=== PATIENT | female | born 1955 | race Caucasian/White ===

== ENCOUNTER 2024-03-09 21:21 | Inpatient (IN) | payer OTHER, SELFPAY ==
[2024-03-09] VITALS (10 sets, daily range): BP systolic 103–146; BP diastolic 71–91; BMI 16.9; BMI 16.3
[2024-03-09 14:39] LABS: % Basophils 0.5 % (0-2); % Eosinophils 0.7 % (0-6); % Immature Granulocytes 0.3 % (0-0.5); % Monocytes 6.6 % (1.7-9.3); % Neutrophils 65.9 % (42.2-75.2); Absolute Basophils 0.1 10^3/uL (0-0.2); Absolute Eosinophils 0.1 10^3/uL (0-0.7); Absolute Lymphocytes 2.4 10^3/uL (1.2-3.4); Absolute Monocytes 0.6 10^3/uL (0.1-0.6); Hematocrit 29.3 % (37.0-47.0); Hemoglobin 10.2 g/dL (12.0-16.0); Mean Corp Hgb Conc. 34.8 g/dL (33.0-37.0); Mean Corpuscular Hgb 31.5 pg (27.0-31.0); Mean Corpuscular Volume 90.4 fL (81.0-99.0); Mean Platelet Volume 9.3 fL (7.4-10.4); Nucleated Red Blood Cells % 0 %; Platelet Count 359 10^3/uL (130-400); Red Blood Cell Count 3.24 10^6/uL (4.20-5.40); Red Cell Dist. Width 17.1 % (11.5-14.5); White Blood Cell Count 9.2 10^3/uL (4.8-10.8)
[2024-03-09 14:47] LABS: ALT (SGPT) 10 U/L (0-35); AST (SGOT) 40 U/L (14-36); Albumin 3.7 g/dl (3.5-5.0); Alkaline Phosphatase 67 U/L (38-126); Blood Urea Nitrogen 15 mg/dl (7-17); Calcium 8.9 mg/dl (8.4-10.2); Carbon Dioxide 29 mmol/L (22-30); Chloride 95 mmol/L (98-107); Glucose 90 mg/dl (70-99); Lipase 94 U/L (23-300); Potassium 2.9 mmol/L (3.5-5.1); Sodium 137 mmol/L (135-145); Total Bilirubin 0.8 mg/dl (0.2-1.3); Total Protein 6.4 g/dl (6.3-8.2); eGFR > 60.00
[2024-03-09 14:59] LABS: Troponin I < 0.012 ng/ml
[2024-03-09 15:25] LABS: TSH 0.53 uIU/ml (0.47-4.68)
--- NOTE | 2024-03-09 17:01 | ED.GENMED ---
History of Present Illness
General
Chief Complaint: Chest Pain
Source: patient
Time Seen by Provider: 03/09/24 16:38
History of Present Illness
History of Present Illness:
68yoF with a history of hypertension and remote history of cervical cancer at the age of 17 presenting with her daughter for evaluation of generalized weakness. Patient reports a decline in health over the past 10 months or so. She is having
decreased appetite, nausea, and dry heaving. She is unable to tolerate PO intake due to her symptoms and she has lost about 18 pounds over the past 4-6 weeks. She reports having palpitations and feeling like her heart is racing with minimal
activity. She also is having burning central chest pain intermittently which is associated with paresthesias in her bilateral hands/feet. Additionally, she has passed over several times with the last episode being yesterday. She reportedly has not
urinated in the past 3 days. She has not had any medical care in at least a year. She is not currently on medications. She was previously on medication for her blood pressure which she stopped taking recently due to vomiting.
Past History
Past History
ED Past Medical History: None and Other (Kidney stone, hypertension, depression)
ED Past Surgical History: None
Social History
Tobacco: Former smoker
Alcohol: Occasional
Living: with family
Family History
Family History: Negative Diabetes, Hypertension or CAD
Phy Exam
General Physical Exam
General Presentation: no apparent distress
General Skin: warm and dry
General Habitus: cachetic, failure to thrive and frail
General Mental: alert
ENT Exam
ENT Exam: normocephalic
Cardiovascular Exam
Cardiovascular Exam: regular rate/rhythm
Pulmonary Exam
Pulmonary Exam: lungs clear, no respiratory distress, no crackles and no wheezing
Gastrointestinal Exam
Gastrointestinal Exam: non tender, soft and non distended
Say Coma Scale
Eye Opening: Spontaneous
Verbal Response: Oriented
Motor Response: Obeys Commands
GCS Total Score: 15
Skin Exam
Skin Exam: warm/dry and pallor
Psychiatric Exam
Psychiatric Exam: normal mood/affect
Scores
Heart Score for Chest Pain Patients
STEMI patient?: No
History: Slightly or Non-Suspicious
ECG: Nonspecific Repolarization
Age: >/= 65 years
Risk Factors: 1 or 2 Risk Factors
Troponin: </= Normal Limit
Heart Score for Chest Pain Patients: 4
Heart Score Risk: 20.3% MACE over next 6 weeks
Course
Orders/Labs/Results
Orders:
Orders
03/09/24 14:07
Electrocardiogram (*1) Urgent
Reason for Study: Chest Pain
EKG- Treatment ONCE
03/09/24 14:26
Complete Blood Count/With Diff Urgent
Comprehensive Metabolic Panel Urgent
Lipase Urgent
Magnesium Urgent
TSH Urgent
Troponin I Urgent
03/09/24 16:39
Add On- LAB Urgent
Tests Added?: magnesium
Potassium Chloride [KCl] 40 meq PO NOW STA
03/09/24 16:59
CT Chest/abd/pel W Iv Cont Urgent
Comment:
Reason For Exam: Chest pain, weight loss
0.9% Sodium Chloride 500 ml [Nss] 500 ml IV BOLUS
Ondansetron Injectable [Zofran] 4 mg IV NOW STA
03/09/24 17:00
CT Head W/o Iv Contrast Urgent
Comment:
Reason For Exam: AMS
03/09/24 17:33
Potassium Chloride [KCl] 20 meq 0.9% Sodium Chloride 150 ml [Nss] 150 ml IV NOW
03/09/24 17:42
Magnesium Sulfate 2 Gram/50 ml [Magnesium Sulfate] 2 gram in 50 ml IV NOW
03/09/24 21:07
Admit/Transfer Patient As Directed
Co-Sign Provider:
Level of Care: Inpatient admission
Assign to:: Telemetry
Physician / Group: praneeth
Diagnosis: hypomag, hypokalemia
Reason for Telemetry: Arrhythmia
Date to Stop Telemetry: 03/12/24
Time to Stop Telemetry: 11:00
Reason for Hospitalization: hypomag, hypokalemia
Expected length of stay greater than two midnights?: Yes
ELOS- Estimated Length of Stay in days: 2
I certify the patient meets the requirements for IP care: Yes
Code Status As Directed
Resuscitation Status: Full Code
PRN Pain Medication Management As Directed
May give lesser potent ordered pain med per pt: Yes
preference::
Protocol:: Medication orders for pain may be administered in a
manner that supports deferring to patient preference
when the pt is:
- Requesting an ordered lesser potent pain medication.
Least to most potent pain medications are defined
as: acetaminophen < NSAID < tramadol < opioids
(morphine, oxycodone, hydromorphone).
- Requesting a lesser dose of the same medication IF
ORDERED.
- Requesting a less intrusive route of administration
if both routes are prescribed by the provider (PO <
IV).
03/12/24 11:00
DC Protocol for Telemetry ONCE
Abnormal Lab Results
03/09/24
14:26
RBC 3.24 L 10^6/uL
(4.20-5.40)
Hgb 10.2 L g/dL
(12.0-16.0)
Hct 29.3 L %
(37.0-47.0)
MCH 31.5 H pg
(27.0-31.0)
RDW 17.1 H %
(11.5-14.5)
Potassium 2.9 L mmol/L
(3.5-5.1)
Chloride 95 L mmol/L
(98-107)
Magnesium 1.1 L mg/dl
(1.6-2.3)
AST 40 H U/L
(14-36)
03/09/24 14:26
03/09/24 14:26
Vital Signs
Initial and Last Documented VS:
Initial Vital Signs
Temp Pulse Resp BP Pulse Ox
98.8 F 102 16 111/75 100
03/09/24 14:12 03/09/24 14:12 03/09/24 14:12 03/09/24 14:12 03/09/24 14:12
Last Documented Vital Signs
Temp Pulse Resp BP Pulse Ox
98.8 F 92 24 137/86 97
03/09/24 14:12 03/09/24 20:00 03/09/24 20:00 03/09/24 20:00 03/09/24 20:00
MDM/Problems Addressed
Differential Diagnosis Includes:
68yoF here with multiple complaints including generalized weakness, n/v, unintentional weight loss. Also c/o chest pain and syncope. She reportedly has not urinated in 3 days. VSS. She is cachectic and ill appearing on exam. Differential diagnosis
includes but is not limited to: failure to thrive, malignancy, dehydration, electrolyte abnormality, KAYLEY
Initial ED plan: Cardiac labs, TSH, and EKG obtained in triage. Potassium 2.9. Hemoglobin 10.2. EKG shows NSR with nonspecific ST/T wave changes although troponin is normal. Will obtain CT CAP to evaluate for possible malignancy. CT head also
ordered as daughter states she is confused at times. IV potassium, fluid bolus, and Zofran ordered for symptoms.
*EKG
Interpreted by ED Provider?: Yes
EKG Intrepretation Date: 03/09/24
Heart Rate: 100
Rate: normal
Rhythm: sinus
[place]: normal axis
Interval: normal interval
QRS Pattern: normal QRS
Ischemia: non-specific ST changes
*Critical Care Note
Total Time (30-74mins, 75-104mins- exclusive of procedures): Not Applicable
Update Note
Update Note:
Magnesium also low at 1.1. and IV magnesium replacement ordered. Imaging negative for acute findings. Given degree of weakness and frailty, will admit for further evaluation and management.
ED Attending Note
-
Portions of this chart may have been created with voice recognition software.� Occasional wrong word or��sound alike� substitutions may have occurred due to the inherent limitations of voice recognition software.
Discharge Plan
Departure
Patient Disposition: Admit
Date of Disposition: 03/09/24
Time of Disposition: 20:24
Presentation/result/management discussed w/ accepting MD/DO: Hospitalist
Discharge Problem:
Failure to thrive in adult, Hypokalemia, Hypomagnesemia, Unintentional weight loss, Generalized weakness
Interventions
Interventions:
*Risk Screen - Suicide Last Done: 03/09/24 17:00
*General Assessment Last Done: 03/09/24 17:00
*Neglect/Abuse Screening Last Done: 03/09/24 17:00
ED- Fall Risk Assessment Last Done: 03/09/24 17:00
*ED COVID-19 Vaccine History Last Done: 03/09/24 17:00
ED- Cardiac Assessment Last Done: 03/09/24 17:00
[2024-03-09 17:19] LABS: Magnesium 1.1 mg/dl (1.6-2.3)
[2024-03-09] MEDS: ZOFRAN 4 MG IV (17:24)
[2024-03-09] MEDS: NSS 500 IV (17:51)
[2024-03-09] MEDS: KCL 160 MEQ IV (17:51)
[2024-03-09] MEDS: MAGNESIUM SULFATE 50 IV (18:36)
--- NOTE | 2024-03-09 21:20 | HPS.HSE ---
Family Physician
-
Family Physician: Sneha Ann
Chief Complaint
-
vomiting, syncope
History of Present Illness
68-year-old female past medical history of IBS, hypertension, depression, kidney stone, cervical cancer, presenting for generalized weakness. 2 months ago she started having nausea and vomiting anytime she eats solid food. She would feel
distention and discomfort in her stomach and vomited shortly later. She can tolerate liquids. She denies any blood in the vomit. She has lost significant amount of weight. She has not urinated in 3 days. Has not had a bowel movement 4 days.
She feels very weak and is having syncopal episodes. Denies shortness of breath.. She is having palpitations. Denies black stool or blood in the stool. Denies any acid reflux. Denies swallowing dysfunction.
She states that she has a history of IBS several years ago with intermittent constipation/diarrhea and had EGD which was unremarkable.
Denies any surgeries apart from gynecologic surgery
Medical History
Past Medical History
Past Medical History: Reports Other (IBS, hypertension, depression, kidney stone, cervical cancer)
Past Surgical History: Reports Gynocological
Social History
Tobacco: Non-smoker
Alcohol: None
Drug: None
Family History
Family History: Not pertinent
Allergies / Home Medications
Allergies reflects when Allergies were last updated in [employer]
Home Medications with original date entered in [employer]
Allergy/Medication List:
Allergies
Allergy/AdvReac Type Severity Reaction Status Date / Time
cefazolin sodium [From [facility]] Allergy Anaphylaxis Verified 03/09/24 14:12
morphine Allergy Swelling Verified 03/09/24 14:12
Home Medications
No Meds [No Current Medications] 03/09/24
Review of Systems
-
Constitutional: Reports No Symptoms
EENT: Reports No Symptoms
Respiratory: Reports No Symptoms
Cardiac: Reports No Symptoms
Abdomen/GI: Reports See HPI
: Reports No Symptoms
Musculoskeletal: Reports No Symptoms
Skin: Reports No Symptoms
Neurological: Reports No Symptoms
Endocrine: Reports No Symptoms
Hematologic/Lymphatic: Reports No Symptoms
Psych: Reports No Symptoms
Physical Exam
Vital Signs
Vital Signs
Temp Pulse Resp BP Pulse Ox
98.8 F 92 24 137/86 97
03/09/24 14:12 03/09/24 20:00 03/09/24 20:00 03/09/24 20:00 03/09/24 20:00
Physical Exam
General: Well Developed, Well Nourished and No Apparent Distress
HEENT: NormoCephalic, Moist mucous membranes and Atraumatic
Respiratory: Clear
Cardiac: S1/S2 and Regular Rhythm; No Murmur or Rub
GI: Soft, Non Tender, Non Distended and Normal Bowel Sounds; No Organomegaly
Rectal: Deferred by Provider
Musculoskeletal: No Clubbing, No Cyanosis and No Edema
Skin: No Rash
Neuro: Nonfocal/grossly intact
Laboratory Results
-
03/09/24 14:26
03/09/24 14:26
Laboratory Results
Total Bilirubin 0.8 mg/dl (0.2-1.3) 03/09/24 14:26
AST 40 U/L (14-36) H 03/09/24 14:26
ALT 10 U/L (0-35) 03/09/24 14:26
Alkaline Phosphatase 67 U/L (38-126) 03/09/24 14:26
Troponin I < 0.012 ng/ml 03/09/24 14:26
Lipase 94 U/L (23-300) 03/09/24 14:26
Data Reviewed
-
Lab Data: Labs Reviewed by me
Old Records: Reviewed
Impression/Plan
-
IMPRESSION:
PLAN:
# Severe hypokalemia secondary to hypomagnesemia secondary to recurrent vomiting/severe protein calorie malnutrition suspecting upper GI pathology
# Syncopal episodes/palpitations secondary to hypomagnesemia/hypokalemia
-EKG shows normal sinus rhythm
-Magnesium 1.1, potassium 2.9
-Replete magnesium and potassium
-IV fluids
-CT head negative
-CT chest abdomen pelvis negative
-GI consulted
# Anuria
-Monitor urine output with IV fluids
# Constipation due to lack of oral intake
# Anemia unknown chronicity
-Check iron studies, B12 and folate
History of IBS
Essential hypertension
Depression
Kidney stone
Cervical cancer
Full code
DVT prophylaxis�heparin
Regular diet
--- NOTE | 2024-03-09 22:13 | PTCARENOTE ---
Pt received from ED to [facility]. Pt oriented to room and call clifton.
[2024-03-09] MEDS: NSS 1000 IV (22:50)
[2024-03-09 23:42] LABS: Iron 63 ug/dl (37-170)
[2024-03-09 23:51] LABS: Percent Saturation 34 % (20-50); Total Iron Binding Capacity 182 ug/dl (265-497)
[2024-03-10] VITALS (7 sets, daily range): BP systolic 90–129; BP diastolic 52–76
[2024-03-10 05:31] LABS: Folate 3.1 ng/ml (2.76-20); Vitamin B12 694 pg/ml (239-931)
--- NOTE | 2024-03-10 07:18 | CON.GI ---
Consultation
-
Date/Time Consultation Requested: 03/09/24 22:13 pm
Date/Time Consultation Performed: 03/10/24 08.10 am
Requesting Provider: Mario Alberto Armenta MD
Performing Provider: Saba Rosario MD
Reason for Consultation: Nausea
Medical History
Chief Complaint / HPI
Chief Complaint: Generalized weakness, Nausea, Decreased appetite
History of Present Illness:
The patient is a 68 year old female with a PMH of IBS, hypertension, depression, kidney stone, cervical cancer who presented to ER on 03/09/24 complaining from generalized weakness. She reported that she was feeling well since last 10 months and
started to have vomiting episodes daily since last 2 months. She was not able to tolerate eating/drinking due feeling nauseous and vomiting. She lost about 18 pounds in last 2 months.She started to feel some palpitations and syncopal episodes. The
patient reported that she is not a person with good appetite. She was diagnosed with IBS more 20 years ago and suffered from having diarrhea for years. She reported having endoscopy and colonoscopy for that reason and results were not significant.
She is not sure but thinks she was also sought for celiac disease and the results were not significant. She denies current diarrhea since last 2 months ( She was not really eating), denies melena, last BM was on Friday with very low amounts, denies
hematemesis, reflux, abdominal pain, dysphagia, last vomiting was 2 days ago. Patient endorses feeling nauseous most of the time.
Past Medical History
Past Medical History: Other (IBS, hypertension, depression, kidney stone, cervical cancer)
Past Surgical History: Other ( Tube ligation, elbow suregery )
Social History
Tobacco: Non-Smoker
Alcohol: None
Drug: None
Living: With Family
Family History
Family History: Reviewed & Not Pertinent
Allergies / Home Medications
Allergy/AdvReac Type Severity Reaction Status Date / Time
cefazolin sodium [From [facility]] Allergy Anaphylaxis Verified 03/09/24 14:12
morphine Allergy Swelling Verified 03/09/24 14:12
�Medication �Instructions �Recorded
No Meds [No Current Medications] 03/09/24
Review of Systems
-
History Source: Patient
EENT: Reports No Symptoms
Respiratory: Reports No Symptoms
Cardiac: Reports Palpitations
Abdomen/GI: Reports Nausea
: Reports No Symptoms
Musculoskeletal: Reports Other (Generalized weakness )
Skin: Reports No Symptoms
Vital Signs
Temp Pulse Resp BP Pulse Ox
97.9 F 76 18 129/76 98
03/10/24 03:27 03/10/24 03:27 03/10/24 03:27 03/10/24 03:27 03/10/24 03:27
Physical Exam
Exam
General: Poor Appetite and Other (cachexia)
HEENT: Normocephalic and Anicteric
Respiratory: Clear
Cardiac: S1/S2 and Regular Rhythm
GI: Soft, Non Tender and Non Distended
Musculoskeletal: No Clubbing, No Cyanosis and No Edema
Skin: Warm
Neuro: Awake, Alert, Oriented and AO x 3
Results
WBC 9.2 10^3/uL (4.8-10.8) 03/09/24 14:26
Hgb 10.2 g/dL (12.0-16.0) L 03/09/24 14:26
Hct 29.3 % (37.0-47.0) L 03/09/24 14:26
MCV 90.4 fL (81.0-99.0) 03/09/24 14:26
Plt Count 359 10^3/uL (130-400) 03/09/24 14:26
Absolute Neuts (auto) 6.0 10^3/uL (1.4-6.5) 03/09/24 14:26
Sodium 137 mmol/L (135-145) 03/09/24 14:26
Potassium 2.9 mmol/L (3.5-5.1) L 03/09/24 14:
Chloride 95 mmol/L (98-107) L 03/09/24 14:
Carbon Dioxide 29 mmol/L (22-30) 03/09/24 14:26
BUN 15 mg/dl (7-17) 03/09/24 14:
Creatinine 0.6 mg/dL (0.6-1.0) 03/09/24 14:
Calcium 8.9 mg/dl (8.4-10.2) 03/09/24 14:
Total Bilirubin 0.8 mg/dl (0.2-1.3) 03/09/24 14:
AST 40 U/L (14-36) H 03/09/24 14:
ALT 10 U/L (0-35) 03/09/24 14:
Alkaline Phosphatase 67 U/L (38-126) 03/09/24 14:
Lipase 94 U/L (23-300) 03/09/24 14:
Diagnostic Image Results:
Abdominal/Pelvic CT 03/09/24
IMPRESSION:
1. No significant acute abnormality identified in the chest, abdomen or pelvis, as described above
Prior GI Procedures:
Patient reports she had endoscopy and colonoscopy about 15 years ago at [facility] and results were not significant.
EGD: No known recent endoscopy
Colonoscopy: No known recent colonoscopy
Assessment / Plan
-
Impression: The patient is a 68 year old female who has been diagnosed with IBS more than 20 years ago along with chronic diarrhea. She started to feel nauseous since last 2 months and was not able to tolerate eating/drinking due nausea. Her and CT
is not remarkable fro her current condition but low hgb level was found and it trended down from 10.2 to 8.7 today. The patient denied hematemesis or melena and abdominal pain. She underwent endoscopy and colonoscopy about 15 years ago possibly due
her chronic diarrhea and was also checked for celiac disease at that time and results were not significant. She did not have further studies or follow up for that reason. Her diarrhea stopped 2 months ago after she reduced eating due vomiting.
#Anemia likely from iron deficiency due limited oral intake versus acute bleeding
-Low hgb level was found and it trended down from 10.2 to 8.7 ( Started IV fluid Hemodilution vs acute blood loss)
-Follow up HGB levels Q12 H
-No hematemesis, no melena, no abdominal pain
-BUN 15, TIBC 182, Iron 63, Folate 3.1, vit B12 694
-Lost 18 pounds in last 2 months
#Nausea can be related Inflammatory bowel disease or gastroparesis
-Hx of IBS
-Last 2 months daily nausea episodes
-No abdominal pain or reflux symptoms, No hematemesis
-Endoscopy is planning tomorrow if electrolyte levels are in normal range
-Continue clear liquids today, NPO after midnight
#Diarrhea
-Chronic diarrhea at least for last 20 yeas
-Diagnosis of IBS
-Last colonoscopy 15 years ago
-OP/IP colonoscopy can be considered
-
-
Thank you for consultation and allowing me to participate in the patient's care. Please call the [facility] physician during the after hours with any questions or concerns.
[2024-03-10 08:11] LABS: % Basophils 0.4 % (0-2); % Eosinophils 1.2 % (0-6); % Immature Granulocytes 0.4 % (0-0.5); % Monocytes 7.6 % (1.7-9.3); % Neutrophils 66.4 % (42.2-75.2); Absolute Eosinophils 0.1 10^3/uL (0-0.7); Absolute Lymphocytes 1.6 10^3/uL (1.2-3.4); Absolute Monocytes 0.5 10^3/uL (0.1-0.6); Absolute Neutrophils 4.5 10^3/uL (1.4-6.5); Hematocrit 25.6 % (37.0-47.0); Hemoglobin 8.7 g/dL (12.0-16.0); Mean Corpuscular Hgb 31.6 pg (27.0-31.0); Mean Corpuscular Volume 93.1 fL (81.0-99.0); Mean Platelet Volume 9.6 fL (7.4-10.4); Nucleated Red Blood Cells % 0 %; Platelet Count 299 10^3/uL (130-400); Red Blood Cell Count 2.75 10^6/uL (4.20-5.40); Red Cell Dist. Width 17.2 % (11.5-14.5); White Blood Cell Count 6.7 10^3/uL (4.8-10.8)
[2024-03-10 09:48] LABS: ALT (SGPT) < 10 U/L (0-35); AST (SGOT) 33 U/L (14-36); Albumin 2.8 g/dl (3.5-5.0); Alkaline Phosphatase 49 U/L (38-126); Blood Urea Nitrogen 9 mg/dl (7-17); Calcium 7.8 mg/dl (8.4-10.2); Carbon Dioxide 25 mmol/L (22-30); Chloride 102 mmol/L (98-107); Estimated Creatinine Clearance 62 ml/min; Glucose 72 mg/dl (70-99); Magnesium 1.5 mg/dl (1.6-2.3); Sodium 139 mmol/L (135-145); Total Bilirubin 0.8 mg/dl (0.2-1.3); Total Protein 5.2 g/dl (6.3-8.2); eGFR > 60.00
[2024-03-10] MEDS: MAGNESIUM SULFATE 100 IV ×2 (11:07→19:35)
[2024-03-10] MEDS: KCL 160 MEQ IV (12:51)
--- NOTE | 2024-03-10 13:29 | CM ---
Patient seen at bedside with physicians. Patient states that she lives with her son and 2 grandsons. Patient stated that she lived in a 2 story home. patient states that she has been very independent and has not seen physicians. Patient previously,
used Dr. Oconnell but has not continued to see a physician with that practice. Patient uses the [facility] on [address], [address]. Patient stated that she has spoken with [facility] and is planning on signing up with Medicare immediately.
Patient stated that she has no dme and has not previously had problems with resources. Patient did state that she had been smoking prior to 2 years but still used nicotine replacement losenges. CM will continue to follow for discharge planning needs.
Plan; home with no needs vs VN; watch for functional needs.
--- NOTE | 2024-03-10 14:30 | W.PN.HOSP.TC ---
Addendum entered and electronically signed by Hamida Rios MD 03/10/24 16:51:
I saw and evaluated the patient independently. I reviewed the resident�s note and agree with findings and plan as documented by Dr. Pope.
GENERAL: cachectic, chronically ill appearing pale female in no apparent distress
HEENT: NC/AT
HEART: regular rate and rhythm, +S1, +S2
LUNGS : clear to auscultation bilaterally
ABDOM: soft, nontender, nondistended, + bowel sounds
EXT: no cyanosis, clubbing, or edema
NEUROLOGIC: grossly intact
Severe hypokalemia due to hypomagnesemia due to recurrent vomiting with severe protein calorie malnutrition suspecting occult malignancy--CT scans without any acute/chronic abnormalities (unclear if done with oral contrast)--for EGD
tomorrow--replete K, mag--consideration for barium enema/colonoscopy--keep K > 4 and mag >2--once patient does start to eat, watch for refeeding syndrome
Syncopal episodes/palpitations due to hypomagnesemia/hypokalemia--PT/OT--eval after lytes repleted--CT head negative
Anuria ?--BUN/creat WNL--Monitor urine output with IV fluids
Constipation due to lack of oral intake vs colon malignancy
Anemia unknown chronicity--suspect due to chronic disease--pt denies any blood loss--drop from admission HGB of 10.2 to 8.7 could be dilutional--not iron deficient and on no meds (iron supps) could be due to hemolysis or production issue--Check
serum haptoglobin, serum reticulocyte count--consider heme consult--folate low normal--will start repletion--B12 almost 700
History of IBS--doubt this presentation is related to IBS flare
severe protein calorie malnutrition--would consult nutrition
Essential hypertension-- no meds
Depression--no meds
Cervical cancer h/o--no evidence of malignancy by CT scans
code status --Full code
DVT prophylaxis�SCDs
Original Note:
Today's Communication/Plan
-
Workup anemia. Continue to follow GI recs. Endoscopy tomorrow. Replete potassium and magnesium as needed.
Assessment / Plan
Assessment / Plan
1. Hypokalemia/hypomagnesemia
� Potassium in emergency department 2.9, 3.0 today. Repleted 40 mEq today.
- Magnesium 1.1 in emergency department, repleted. Magnesium 1.5 in a.m., repleted today.
- Recheck BMP in p.m. Recheck magnesium in p.m.
- Replete for potassium less than 4, magnesium less than 2.
2. Anemia secondary to acute blood loss versus nutritional deficiency versus dilutional
- Hemoglobin 10.2 at admission, 8.7 this a.m.
- Review of previous records reveals hemoglobin 14-15 at past visits, most recently in May 2020.
- Trend hemoglobins, transfuse for goal hemoglobin greater than 7.
- Patient consented for blood, type and cross.
- Iron 63, TIBC 182, folate 3.1, vitamin B12 694.
- Patient given 1 dose of p.o. folate today.
- Check serum haptoglobin, serum reticulocyte count.
- Follow-up endoscopy, see below. Clear liquid diet today, n.p.o. after midnight.
3. Nausea/vomiting
-Patient being followed by gastroenterology.
-IV Protonix 40 mg daily.
-EGD tomorrow, continue to follow.
4. Protein calorie malnutrition
-Cachexia
-Nutrition consult per GI recs
-PT/OT
Anticipated Discharge: 24 - 48 hours
Subjective/Interval History
-
Date of Service: March 10, 2024
Patient admitted last night for vomiting and weakness. Patient states that when she eats solid foods and gets up to a standing position, she becomes nauseous and retches and/or vomits. This has been occurring for approximately 2 months. Patient
notes that most of the time she retches however, sometimes vomits mucus or undigested food. Patient denies hematemesis/melena. Patient denies abdominal pain except after vomiting or retching. Patient notes an 18 pound weight loss over the last
few months and that although she does not feel constipated, notes that she does not have bowel movements for days due to lack of eating solid foods.
Objective Data
-
Labs:
Laboratory Results
03/10/24 03/10/24
07:39 18:00
WBC 6.7
Hgb 8.7 L
Hct 25.6 L
Plt Count 299
Sodium 139 Pending
Potassium 3.0 L Pending
Chloride 102 Pending
Carbon Dioxide 25 Pending
BUN 9 Pending
Creatinine 0.5 L Pending
Glucose 72 Pending
Calcium 7.8 L Pending
Total Bilirubin 0.8
AST 33
ALT < 10
Alkaline Phosphatase 49
Vital Signs:
Vital Signs
Temp Pulse Resp BP Pulse Ox
97.5 F 86 16 119/67 98
03/10/24 11:44 03/10/24 11:44 03/10/24 11:44 03/10/24 11:44 03/10/24 11:44
I&O
03/09/24 03/10/24 03/11/24
06:59 06:59 06:59
Intake Total 240 / 240 610 / 610
Balance 240 / 240 610 / 610
Review of Systems
-
History Source: Patient
Constitutional: Reports Weight Loss
Respiratory: Reports No Symptoms
Cardiac: Reports No Symptoms
Abdomen/GI: Reports Other (no abdominal pain, nausea or vomiting at this time)
Neuro: Reports No Symptoms
Hematologic / Lymphatic: Reports No Symptoms
Physical Exam
-
General: No Apparent Distress and Cachectic
HEENT: Normocephalic and Atraumatic
Respiratory: Clear to Auscultation
Cardiac: Regular Rhythm and S1/S2
GI: Soft, Nontender and Nondistended
Rectal: Deferred by Provider
Skin: Warm
Neuro: Awake, Alert and Oriented
Psych: Calm
Data Reviewed
-
CT Scan: Report Reviewed by me and Discussed with Patient
Labs: Labs Reviewed by me and Discussed with Patient
[2024-03-10] MEDS: PROTONIX IV 40 MG IV (15:06)
[2024-03-10] MEDS: FOLVITE 0.5 MG PO (15:06)
[2024-03-10] MEDS: NSS (PRESERVATIVE FREE) 10 ML IV (15:06)
[2024-03-10] MEDS: FLUSH (NSS) 1 FLUSH IV (15:08)
[2024-03-10] MEDS: NSS 1000 IV (15:09)
--- NOTE | 2024-03-10 17:27 | PTCARENOTE ---
Dr. Rios and Dr. Piedra made aware patient with asymptomatic lying BP 90/53 @ 1600 and 91/53 now (previously 110/66 and 119/67 in am). DrsHeather also updated on patient: Voided 2 moderate amounts today, no BM today, consumed most of clear liquid
meal tray earlier today, receiving IV fluids as ordered. Will continue to monitor and assess; await new orders if IV fluid increase and/or additional labs advised by Drs. Patient maintained in bed with call clifotn in reach. Patient verbalizes
understanding to ring for needs, including OOB/mobility/bathroom needs.
[2024-03-10 18:19] LABS: Hemoglobin 9.3 g/dL (12.0-16.0)
[2024-03-10 18:25] LABS: Reticulocyte Count 1.9 % (0.4-2.8)
[2024-03-10 18:40] LABS: Blood Urea Nitrogen 6 mg/dl (7-17); Calcium 7.8 mg/dl (8.4-10.2); Carbon Dioxide 27 mmol/L (22-30); Chloride 101 mmol/L (98-107); Estimated Creatinine Clearance 62 ml/min; Glucose 100 mg/dl (70-99); Magnesium 1.6 mg/dl (1.6-2.3); Potassium 2.8 mmol/L (3.5-5.1); Sodium 137 mmol/L (135-145); eGFR > 60.00
[2024-03-10] MEDS: KCL 270 MEQ IV (20:42)
[2024-03-11] VITALS (11 sets, daily range): BP systolic 17–132; BP diastolic 60–87; BMI 16.3
[2024-03-11] MEDS: NSS 1000 IV ×3 (02:31→23:39)
[2024-03-11] MEDS: FOLVITE 0.5 MG PO (07:43)
[2024-03-11 07:44] LABS: Blood Urea Nitrogen 4 mg/dl (7-17); Calcium 7.5 mg/dl (8.4-10.2); Carbon Dioxide 27 mmol/L (22-30); Chloride 105 mmol/L (98-107); Estimated Creatinine Clearance 62 ml/min; Glucose 73 mg/dl (70-99); Magnesium 1.6 mg/dl (1.6-2.3); Potassium 3.2 mmol/L (3.5-5.1); Sodium 139 mmol/L (135-145); eGFR > 60.00
[2024-03-11] MEDS: PROTONIX IV 40 MG IV (07:44)
[2024-03-11] MEDS: NSS (PRESERVATIVE FREE) 10 ML IV (07:44)
[2024-03-11 07:46] LABS: Hematocrit 26.1 % (37.0-47.0); Hemoglobin 8.8 g/dL (12.0-16.0); Mean Corp Hgb Conc. 33.7 g/dL (33.0-37.0); Mean Corpuscular Hgb 31.2 pg (27.0-31.0); Mean Corpuscular Volume 92.6 fL (81.0-99.0); Mean Platelet Volume 10.1 fL (7.4-10.4); Platelet Count 299 10^3/uL (130-400); Red Blood Cell Count 2.82 10^6/uL (4.20-5.40); White Blood Cell Count 6.4 10^3/uL (4.8-10.8)
--- NOTE | 2024-03-11 10:25 | W.PN.HOSP.TC ---
Addendum entered and electronically signed by Hamida Rios MD 03/11/24 19:33:
I saw and evaluated the patient independently. I reviewed the resident�s note and agree with findings and plan as documented by Dr. Pope.
GENERAL: cachectic, chronically ill appearing pale female in no apparent distress
HEENT: NC/AT
HEART: regular rate and rhythm, +S1, +S2
LUNGS : clear to auscultation bilaterally
ABDOM: soft, nontender, nondistended, + bowel sounds
EXT: no cyanosis, clubbing, or edema
NEUROLOGIC: grossly intact
Severe hypokalemia due to hypomagnesemia due to recurrent vomiting with severe protein calorie malnutrition suspecting occult malignancy--CT scans without any acute/chronic abnormalities (unclear if done with oral contrast)--s/p EGD with shows small
nodule at GE junction s/p biopsy--replete K, mag--consideration for barium enema if cannot do colonoscopy but prepping tonight--keep K > 4 and mag >2--once patient does start to eat, watch for refeeding syndrome
Syncopal episodes/palpitations due to hypomagnesemia/hypokalemia--PT/OT--eval after lytes repleted--CT head negative
Anuria ?--BUN/creat WNL--Monitor urine output with IV fluids
Constipation due to lack of oral intake vs colon malignancy
Anemia unknown chronicity--suspect due to chronic disease--pt denies any blood loss--drop from admission HGB of 10.2 to 8.7 could be dilutional--not iron deficient and on no meds (iron supps) could be due to hemolysis or production issue--
haptoglobin pending, serum reticulocyte count 'normal'--consider heme consult--folate low normal--will start repletion--B12 almost 700
History of IBS--doubt this presentation is related to IBS flare
severe protein calorie malnutrition--apprec nutrition
Essential hypertension-- no meds
Depression--no meds
Cervical cancer h/o--no evidence of malignancy by CT scans
code status --Full code
DVT prophylaxis�SCDs
Original Note:
Today's Communication/Plan
-
Replete K (x 2 40meq bags) and Mg. BMP at 1300; EGD pending BMP results.
Assessment / Plan
Assessment / Plan
1. Hypokalemia/hypomagnesemia
� Potassium in emergency department 2.9, 3.2 today. Replete 80 mg today; 2nd bag to go up right after first. BMP after first bag, and EGD following if WNL.
- Magnesium 1.1 in emergency department, repleted. Magnesium 1.5 yesterday, repleted again. Magnesium 1.6 in a.m., repleted again today.
- Recheck BMP in p.m. Recheck magnesium in p.m.
- Replete for potassium less than 4, magnesium less than 2.
2. Anemia secondary to acute blood loss versus nutritional deficiency versus dilutional
- Hemoglobin 10.2 at admission, 8.8 this a.m.
- Review of previous records reveals hemoglobin 14-15 at past visits, most recently in May 2020.
- Trend hemoglobins, transfuse for goal hemoglobin greater than 7.
- Patient consented for blood, type and cross.
- Iron 63, TIBC 182, folate 3.1, vitamin B12 694.
- Haptoglobin pending; reticulocyte count 1.9.
- Patient given 1 dose of p.o. folate yesterday.
- Follow-up endoscopy, see below. NPO
3. Nausea/vomiting
-Patient being followed by gastroenterology.
-IV Protonix 40 mg daily.
-EGD today pending lytes, continue to follow.
4. Protein calorie malnutrition
-Cachexia
-Nutrition consult per GI recs
-PT/OT
Anticipated Discharge: 24 - 48 hours
Subjective/Interval History
-
Date of Service: March 11, 2024
Patient had an episode of unbearable nausea, followed by retching last night. Patient was given IV Zofran which resolved the episode. Patient notes that she has not had an episode of nausea or retching since. Patient denies CP, palpitations, SOB,
abdominal pain, nausea, vomiting, diarrhea.
Objective Data
-
Labs:
Laboratory Results
03/11/24 03/11/24
06:14 07:15
WBC 6.4
Hgb 8.8 L
Hct 26.1 L
Plt Count 299
Sodium 139
Potassium 3.2 L
Chloride 105
Carbon Dioxide 27
BUN 4 L
Creatinine 0.4 L
Glucose 73
Calcium 7.5 L
Vital Signs:
Vital Signs
Temp Pulse Resp BP Pulse Ox
98.3 F 70 19 130/76 97
03/11/24 07:00 03/11/24 07:00 03/11/24 07:00 03/11/24 07:00 03/11/24 07:00
I&O
03/10/24 03/11/24 03/12/24
06:59 06:59 06:59
Intake Total 240 / 240 1660 / 1660
Output Total 425 / 425 150 / 150
Balance 240 / 240 1235 / 1235 -150 / -150
Review of Systems
-
History Source: Patient
Constitutional: Reports No Symptoms
Respiratory: Reports No Symptoms
Cardiac: Reports No Symptoms
Abdomen/GI: Reports No Symptoms
Skin: Reports No Symptoms
Neuro: Reports No Symptoms
Physical Exam
-
General: No Apparent Distress and Cachectic
HEENT: Normocephalic and Atraumatic
Respiratory: Clear to Auscultation and Other (no wheezing, rales, rhonchi)
Cardiac: Regular Rhythm and S1/S2
GI: Soft, Nontender and Nondistended
Skin: Warm, Dry and Other (no tenting of skin)
Neuro: Awake, Alert and Oriented
Psych: Calm
Data Reviewed
-
Labs: Labs Reviewed by me and Discussed with Patient
[2024-03-11] MEDS: MAGNESIUM SULFATE 100 IV (10:26)
[2024-03-11] MEDS: KCL 270 MEQ IV ×2 (11:30→16:37)
--- NOTE | 2024-03-11 14:56 | CM ---
Patient seen at bedside with physicians. Pending further testing per physician. CM will continue to follow for discharge planning needs.
Plan; home with VN vs SNF
--- NOTE | 2024-03-11 15:15 | PTCARENOTE ---
Patient returned to room 436-02 from EGD on stretcher awake and alert, but angry about colonoscopy prep order. Patient supervision assisted to ambulate into room and voided in bathroom toilet, then returned to bed with call clifton in reach, as well as
functioning bed alarm intact, and reoriented to room. Patient expresses that she refused the colonoscopy prep drink to Dr. Parks and verbalized that she will only take Ducolax and enema. Patient using profanity and with increasing agitation. Patient
demands to speak with nursing operations and maintenance supervisor and to switch physicians. Patient concerns/demand communicated to nursing operations and maintenance supervisor Zahida Wynn and Dr. Parks.
[2024-03-11] MEDS: NULYTELY SOLUTION PO (15:32)
[2024-03-11 16:49] LABS: Blood Urea Nitrogen 3 mg/dl (7-17); Calcium 7.7 mg/dl (8.4-10.2); Carbon Dioxide 25 mmol/L (22-30); Chloride 104 mmol/L (98-107); Estimated Creatinine Clearance 62 ml/min; Glucose 71 mg/dl (70-99); Potassium 3.9 mmol/L (3.5-5.1); Sodium 138 mmol/L (135-145); eGFR > 60.00
[2024-03-11] MEDS: ZOFRAN 4 MG IV (17:00)
[2024-03-11] MEDS: NULYTELY SOLUTION 4 LITERS PO (17:44)
--- NOTE | 2024-03-11 21:45 | PTCARENOTE ---
Patient unable to tolerate colonoscopy prep. Patient educated on importance of prep in order to get procedure. Patient stated ' this makes me nauseous, I don't drink this much in a month, I'll do a bunch of enemas'. GI notified, colonoscopy
cancelled. Will continue with current plan of care.
[2024-03-11] MEDS: NSS IV (21:51)
[2024-03-12 03:14] VITALS: BP 134/82
[2024-03-12 07:00] VITALS: BP 131/70
[2024-03-12] MEDS: NSS (PRESERVATIVE FREE) 10 ML IV (07:43)
[2024-03-12] MEDS: PROTONIX IV 40 MG IV (07:43)
[2024-03-12] MEDS: FOLVITE 0.5 MG PO (07:43)
[2024-03-12 07:59] LABS: % Basophils 0.6 % (0-2); % Eosinophils 1.7 % (0-6); % Immature Granulocytes 0.3 % (0-0.5); % Lymphocytes 19.8 % (20.5-51.1); % Monocytes 7.8 % (1.7-9.3); % Neutrophils 69.8 % (42.2-75.2); Absolute Eosinophils 0.1 10^3/uL (0-0.7); Absolute Lymphocytes 1.3 10^3/uL (1.2-3.4); Absolute Monocytes 0.5 10^3/uL (0.1-0.6); Absolute Neutrophils 4.6 10^3/uL (1.4-6.5); Hematocrit 26.1 % (37.0-47.0); Mean Corp Hgb Conc. 34.5 g/dL (33.0-37.0); Mean Corpuscular Hgb 32.4 pg (27.0-31.0); Mean Corpuscular Volume 93.9 fL (81.0-99.0); Mean Platelet Volume 9.4 fL (7.4-10.4); Nucleated Red Blood Cells % 0 %; Platelet Count 289 10^3/uL (130-400); Red Blood Cell Count 2.78 10^6/uL (4.20-5.40); Red Cell Dist. Width 16.6 % (11.5-14.5); White Blood Cell Count 6.6 10^3/uL (4.8-10.8)
[2024-03-12 09:25] LABS: ALT (SGPT) < 10 U/L (0-35); AST (SGOT) 26 U/L (14-36); Albumin 2.6 g/dl (3.5-5.0); Alkaline Phosphatase 47 U/L (38-126); Blood Urea Nitrogen < 2 mg/dl (7-17); Calcium 7.8 mg/dl (8.4-10.2); Carbon Dioxide 25 mmol/L (22-30); Chloride 104 mmol/L (98-107); Estimated Creatinine Clearance 62 ml/min; Glucose 72 mg/dl (70-99); Magnesium 1.2 mg/dl (1.6-2.3); Sodium 138 mmol/L (135-145); Total Bilirubin 0.9 mg/dl (0.2-1.3); eGFR > 60.00
--- NOTE | 2024-03-12 09:40 | W.PN.HOSP.TC ---
Addendum entered and electronically signed by Hamida Rios MD 03/12/24 15:26:
I saw and evaluated the patient independently. I reviewed the resident�s note and agree with findings and plan as documented by Dr. Pope.
GENERAL: cachectic, chronically ill appearing pale female in no apparent distress
HEENT: NC/AT
HEART: regular rate and rhythm, +S1, +S2
LUNGS : clear to auscultation bilaterally
ABDOM: soft, nontender, nondistended, + bowel sounds
EXT: no cyanosis, clubbing, or edema
NEUROLOGIC: grossly intact
Severe hypokalemia due to hypomagnesemia due to recurrent vomiting with severe protein calorie malnutrition suspecting occult malignancy--CT scans without any acute/chronic abnormalities (unclear if done with oral contrast)--s/p EGD with shows small
nodule at GE junction s/p biopsy--replete K, mag--consideration for barium enema if cannot do colonoscopy but prepping tonight--keep K > 4 and mag >2--once patient does start to eat, watch for refeeding syndrome, unable to get pt to eat, will try
before meal zofran
Syncopal episodes/palpitations due to hypomagnesemia/hypokalemia--PT/OT--eval after lytes repleted--CT head negative
Anuria ?--BUN/creat WNL--Monitor urine output with IV fluids
Constipation due to lack of oral intake vs colon malignancy
Anemia unknown chronicity--suspect due to chronic disease--pt denies any blood loss--drop from admission HGB of 10.2 to 8.7 could be dilutional--not iron deficient and on no meds (iron supps) could be due to hemolysis or production issue--
haptoglobin pending, serum reticulocyte count 'normal'--consider heme consult--folate low normal--will start repletion--B12 almost 700
History of IBS--doubt this presentation is related to IBS flare
severe protein calorie malnutrition--apprec nutrition
Essential hypertension-- no meds
Depression--no meds
Cervical cancer h/o--no evidence of malignancy by CT scans
code status --Full code
DVT prophylaxis�SCDs
Original Note:
Today's Communication/Plan
-
.
Assessment / Plan
Assessment / Plan
1. Hypokalemia/hypomagnesemia
� Potassium in emergency department 2.9, 3.2 --> 4.0 today s/p 80 mg yesterday. Replete 80 mg today.
- Magnesium 1.2 again today; will give 4mg bag today.
- Recheck Mg in PM.
- Replete for potassium less than 4, magnesium less than 2.
2. Anemia secondary to acute blood loss versus nutritional deficiency versus dilutional
- Hemoglobin 10.2 at admission, 8.8 yesterday, 9.0 today. Looks to be stabilizing.
- Review of previous records reveals hemoglobin 14-15 at past visits, most recently in May 2020.
- Trend hemoglobins, transfuse for goal hemoglobin greater than 7.
- Patient consented for blood, type and cross.
- Iron 63, TIBC 182, folate 3.1, vitamin B12 694.
- Haptoglobin pending; reticulocyte count 1.9.
- Patient given 1 dose of p.o. folate 03/10.
- Endoscopy yesterday largely benign; colonoscopy could not be done today as pt could not tolerate oral prep; per GI will do colonoscopy outpatient where she can take SuPrep
3. Nausea/vomiting
-PRN Zofran
-IV Protonix 40 mg daily.
-Trial diet today.
-RLQ pain today; gastric obstruction series ordered; no evidence of bowel obstruction or free peritoneal air.
4. Protein calorie malnutrition
-Cachexia
-Nutrition consult per GI recs
-PT/OT
Anticipated Discharge: Within 24 hours
Subjective/Interval History
-
Date of Service: March 12, 2024
Pt back from EGD yesterday and colonoscopy today was recommended. Pt was not able to drink the oral prep; stated that it was way too much liquid for someone that does not normally have a lot of oral intake.
Pt also complains of right lower quadrant pain today.
Objective Data
-
Labs:
Laboratory Results
03/12/24
07:51
WBC 6.6
Hgb 9.0 L
Hct 26.1 L
Plt Count 289
Sodium 138
Potassium 4.0
Chloride 104
Carbon Dioxide 25
BUN < 2 L
Creatinine 0.4 L
Glucose 72
Calcium 7.8 L
Total Bilirubin 0.9
AST 26
ALT < 10
Alkaline Phosphatase 47
Vital Signs:
Vital Signs
Temp Pulse Resp BP Pulse Ox
98.4 F 73 19 131/70 98
03/12/24 07:00 03/12/24 07:00 03/12/24 07:00 03/12/24 07:00 03/12/24 07:00
I&O
03/11/24 03/12/24 03/13/24
06:59 06:59 06:59
Intake Total 1660 / 1660 3695 / 3695
Output Total 425 / 425 600 / 600
Balance 1235 / 1235 3095 / 3095
Review of Systems
-
History Source: Patient
Constitutional: Reports No Symptoms
Respiratory: Reports No Symptoms
Cardiac: Reports No Symptoms
Abdomen/GI: Reports Abdominal Pain (RLQ) and Nausea
Musculoskeletal: Reports No Symptoms
Neuro: Reports No Symptoms
Physical Exam
-
General: No Apparent Distress, Comfortable and Cachectic
HEENT: Normocephalic and Atraumatic
Respiratory: Clear to Auscultation
Cardiac: Regular Rhythm and S1/S2
GI: Soft and Tender (mild; RLQ )
Musculoskeletal: No Edema
Skin: Warm and Dry
Neuro: Awake, Alert and Oriented
Psych: Calm
Data Reviewed
-
Labs: Labs Reviewed by me and Discussed with Patient
[2024-03-12] MEDS: MAGNESIUM SULFATE 100 IV (10:43)
--- NOTE | 2024-03-12 12:05 | W.PN.GI.CBS2 ---
Today's Communication / Plan
-
GI will sign off. Outpatient f/u with GI scheduled to discuss prep and outpatient colonsocopy.
Assessment / Plan
-
Impression: 68 year old female with pmhx IBS-D admitted with failure to thrive, nausea and unintentional weight loss found to have iron deficiency anemia. Her and CT is not remarkable for acute pathology, hemoglobin 10.2 --> 8.7 --> 9.
#Anemia likely from iron deficiency due limited oral intake versus acute bleeding
-Low hgb level was found and it trended down from 10.2 to 8.7 ( Started IV fluid Hemodilution vs acute blood loss) --> 9
-No hematemesis, no melena, no abdominal pain
-BUN 15, TIBC 182, Iron 63, Folate 3.1, vit B12 694
-Lost 18 pounds in last 2 months
-CT Chest/Abdomen/Pelvis unremarkable for acute pathology
-s/p EGD without identifiable source of bleeding/anemia, path pending; recommending colonoscopy, patient unable to tolerate prep. She defers to outpatient where she can be prescribed sutab
#Nausea can be related Inflammatory bowel disease or gastroparesis
-Hx of IBS
-Last 2 months daily nausea episodes
-No abdominal pain or reflux symptoms, No hematemesis
-s/p EGD with mucosal abnormality in the esophagus, not felt to be contributing largely to her symptoms, path pending
Unfortunately, patient declined moving forward with colonoscopy as an inpatient due to inability to tolerate prep. I offered NG placement to administer prep but she declined. I have arranged for outpatient follow-up, at which point we can manage her
symptoms and discuss prep instructions at length for Sutab.
GI will sign off, please call with questions. If pathology returns with any abnormalities while she is inpatient, I will return to discuss findings with her.
Subjective
Subjective
Date of Service: March 12, 2024
Pt. is s/p EGD yesterday, findings listed below. Recommendations made to perform colonoscopy, patient initially refused but then agreeable. Unfortunately, she could not tolerate the prep, reports feelilng extremely ill after only ingesting about 3
oz. She does not feel she can complete this procedure with what we can offer in term of prep in the hospital.
EGD 03/11/24:
Impression: - No significant findings throughout the upper
examined GI tract to explain patient's weight loss and
anemia
- Normal proximal esophagus and mid esophagus.
- Widely patent muscular ring at 38 cms
- Mucosal nodule found in the esophagus at the GE
junction on direct and retroflexion views. Multiple
biopsies were obtained (sent for [place])
- Small hiatal hernia.
- Minimal erythematous mucosa in the antrum. Biopsied
to r/o H pylori.
- Otherwise, normal stomach on direct and retroflexion
views.
- Few mucosal nodules found in the duodenum.
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
erythematous Trey's gland hyperplasia. The larger
mucosal nodule was biopsied to serve as a
sales representative publications sample to r/o adenoma.
- Otherwise, normal duodenum up to the fourth portion
without any AVMs or other vascular lesions.
- The examination was otherwise normal.
Esophgaeal abormality found on EGD, path is still pending, however, not felt to be source of patient's significant symptoms/weight loss and iron deficiency.
Objective
Data Reviewed
Laboratory Data:
Laboratory Results
03/12/24 07:51
03/12/24 07:51
Laboratory Results
Magnesium 1.2 mg/dl (1.6-2.3) L 03/12/24 07:51
Total Bilirubin 0.9 mg/dl (0.2-1.3) 03/12/24 07:51
AST 26 U/L (14-36) 03/12/24 07:51
ALT < 10 U/L (0-35) 03/12/24 07:51
Alkaline Phosphatase 47 U/L (38-126) 03/12/24 07:51
Lipase 94 U/L (23-300) 03/09/24 14:26
Vital Signs and I&O:
Vital Signs
Temp Pulse Resp BP Pulse Ox
98.4 F 73 19 131/70 98
03/12/24 07:00 03/12/24 07:00 03/12/24 07:00 03/12/24 07:00 03/12/24 07:40
I&O
03/11/24 03/12/24 03/13/24
06:59 06:59 06:59
Intake Total 1660 / 1660 3695 / 3695
Output Total 425 / 425 600 / 600
Balance 1235 / 1235 3095 / 3095
Physical Exam
Physical Exam
GENERAL: Cachectic-appearance
ABDOMEN: +BS; soft, non-tender and non-distended; no rebound or guarding
[2024-03-12 15:00] VITALS: BP 137/78
--- NOTE | 2024-03-12 15:22 | CM ---
Patient seen at bedside with physicians. Patient asked for discharge due to inability to tolerate prep for testing. Patient diet advanced per physician. Patient unable to tolerate diet, per physician. Patient given information on resident clinic,
patient also declined VN supports upon discharge. [facility] with [facility] and patient stated that she did not anticipate any needs with transportation. CM will continue to follow for discharge planning needs.
Plan; home with family; watch for family needs
[2024-03-12] MEDS: ZOFRAN 4 MG IV (17:33)
[2024-03-12] MEDS: FLUSH (NSS) 2 FLUSH IV (17:33)
--- NOTE | 2024-03-12 18:00 | W.PN.UPDATE ---
Update Note
Progress Note Update
Patient underwent endoscopy yesterday with Dr. Parks, there was a 15 mm mucosal nodule found at the GE junction, [place] pathology sent returned as well-differentiated, invasive adenocarcinoma. The final pathology report will be finalized on Friday,
additional markers are pending. I discussed finding at bedside with patient, next steps would be an endoscopic ultrasound, depending on layer of involvement, it could be amenable to endoscopic mucosal resection. I have reached out to Dr. Ruiz to
see if we can arrange for inpatient endoscopic ultrasound on Friday. I discussed findings and plan with Dr. Rios. Will consult oncology in the morning.
GI will continue to follow. Will update patient and team on timing of EUS once I am able to speak with Dr. Ruiz.
--- NOTE | 2024-03-12 20:00 | PTCARENOTE ---
[employer] [address] Rios, Tadeo Pope and Dr Sneha Jarquin. Pt unable to tolerate lunch. Had only 3 bites and began to wretch with small amt of vomit. Pt slept most of afternoon. Vomited another small amount around 1700, IV zofran
given. Pt encouraged to try and eat a little something for dinner after zofran given.
[2024-03-12 22:47] VITALS: BP 133/78
[2024-03-13] MEDS: ZOFRAN 4 MG IV ×4 (00:24→19:14)
--- NOTE | 2024-03-13 00:38 | PTCARENOTE ---
At 2300 on 03/12, RN received report on patient from Citlalli WILHELM and assumed care.
[2024-03-13 03:13] LABS: Haptoglobin 109 mg/dL (30-200)
[2024-03-13 07:04] LABS: Hematocrit 28.4 % (37.0-47.0); Hemoglobin 9.7 g/dL (12.0-16.0); Mean Corp Hgb Conc. 34.2 g/dL (33.0-37.0); Mean Corpuscular Hgb 31.7 pg (27.0-31.0); Mean Corpuscular Volume 92.8 fL (81.0-99.0); Mean Platelet Volume 9.3 fL (7.4-10.4); Platelet Count 307 10^3/uL (130-400); Red Blood Cell Count 3.06 10^6/uL (4.20-5.40); Red Cell Dist. Width 16.9 % (11.5-14.5); White Blood Cell Count 7.1 10^3/uL (4.8-10.8)
[2024-03-13 07:30] VITALS: BP 148/75
[2024-03-13 07:39] LABS: ALT (SGPT) < 10 U/L (0-35); AST (SGOT) 26 U/L (14-36); Albumin 2.7 g/dl (3.5-5.0); Alkaline Phosphatase 58 U/L (38-126); Blood Urea Nitrogen 3 mg/dl (7-17); Calcium 8.1 mg/dl (8.4-10.2); Carbon Dioxide 27 mmol/L (22-30); Chloride 100 mmol/L (98-107); Estimated Creatinine Clearance 62 ml/min; Glucose 74 mg/dl (70-99); Magnesium 1.7 mg/dl (1.6-2.3); Potassium 3.9 mmol/L (3.5-5.1); Sodium 136 mmol/L (135-145); Total Protein 5.2 g/dl (6.3-8.2); eGFR > 60.00
--- NOTE | 2024-03-13 08:59 | W.PN.GI.CBS2 ---
Today's Communication / Plan
-
Oncology consult. EUS on Friday with Dr. Ruiz
Assessment / Plan
-
Impression: 68 year old female with pmhx IBS-D admitted with failure to thrive, nausea and unintentional weight loss found to have iron deficiency anemia. Her and CT is not remarkable for acute pathology, hemoglobin 10.2 --> 8.7 --> 9 -->9.7
#Unintentional Weight Loss
#Inability to tolerate PO
#Anemia likely from iron deficiency due limited oral intake versus acute bleeding vs. malignancy
-Low hgb level was found and it trended down from 10.2 to 8.7 ( Started IV fluid Hemodilution vs acute blood loss) --> 9 --> 9.7
-No hematemesis, no melena, no abdominal pain
-BUN 15, TIBC 182, Iron 63, Folate 3.1, vit B12 694
-Lost 18 pounds in last 2 months
-CT Chest/Abdomen/Pelvis unremarkable for acute pathology
-s/p EGD without identifiable source of bleeding/anemia, path pending; recommending colonoscopy, patient unable to tolerate prep. She defers to outpatient where she can be prescribed sutab
--> - Mucosal nodule found in the esophagus at the GE junction, pathology returned well-differentiated, invasive adenocarcinoma; additional markers pending
-oncology consulted; unclear of primary esophageal vs. 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
-plan for EUS with on Friday-- depending on depth of invasion, could be amenable to EMR vs. ESD, in which case, would need to be referred out
Subjective
Subjective
Date of Service: March 13, 2024
Patient seen in follow-up. Overall, no change in symptoms. She has made her wishes very clear that no one in her family be told any updates on her care, specifically related to new cancer diagnosis. She would like to speak with oncology, she is
agreeable to EUS with Dr. Ruiz on Friday.
Objective
Data Reviewed
Laboratory Data:
Laboratory Results
03/13/24 05:52
03/13/24 05:52
Laboratory Results
Magnesium 1.7 mg/dl (1.6-2.3) 03/13/24 05:52
Total Bilirubin 1.0 mg/dl (0.2-1.3) 03/13/24 05:52
AST 26 U/L (14-36) 03/13/24 05:52
ALT < 10 U/L (0-35) 03/13/24 05:52
Alkaline Phosphatase 58 U/L (38-126) 03/13/24 05:52
Lipase 94 U/L (23-300) 03/09/24 14:26
Vital Signs and I&O:
Vital Signs
Temp Pulse Resp BP Pulse Ox
98.6 F 76 16 148/75 97
03/13/24 07:30 03/13/24 07:30 03/13/24 07:30 03/13/24 07:30 03/13/24 07:30
I&O
03/12/24 03/13/24 03/14/24
06:59 06:59 06:59
Intake Total 3695 / 3695 1200 / 1200
Output Total 600 / 600
Balance 3095 / 3095 1200 / 1200
Physical Exam
Physical Exam
GENERAL: Cachectic-appearance
ABDOMEN: +BS; soft, non-tender and non-distended; no rebound or guarding
[2024-03-13] MEDS: NSS (PRESERVATIVE FREE) 10 ML IV (10:00)
[2024-03-13] MEDS: FOLVITE 0.5 MG PO (10:00)
[2024-03-13] MEDS: PROTONIX IV 40 MG IV (10:01)
--- NOTE | 2024-03-13 11:16 | W.PN.HOSP.TC ---
Addendum entered and electronically signed by Hamida Rios MD 03/13/24 16:06:
I saw and evaluated the patient independently. I reviewed the resident�s note and agree with findings and plan as documented by Dr. Pope.
GENERAL: cachectic, chronically ill appearing pale female in no apparent distress
HEENT: NC/AT
HEART: regular rate and rhythm, +S1, +S2
LUNGS : clear to auscultation bilaterally
ABDOM: soft, nontender, nondistended, + bowel sounds
EXT: no cyanosis, clubbing, or edema
NEUROLOGIC: grossly intact
Does NOT want us, nursing, etc to discuss her medical conditions with ANY family unless we get specific permission from her.
Severe hypokalemia due to hypomagnesemia due to recurrent vomiting with severe protein calorie malnutrition suspecting occult malignancy (actually nodule noted on EGD is invasive adenocarcinoma)--CT scans without any acute/chronic abnormalities--s/p
EGD with shows small nodule at GE junction s/p biopsy--replete K, mag---keep K > 4 and mag >2--once patient does start to eat, watch for refeeding syndrome, unable to get pt to eat, will try before meal zofran--Dr. Ruiz to do EUS Friday
Syncopal episodes/palpitations due to hypomagnesemia/hypokalemia--PT/OT--eval after lytes repleted--CT head negative
Anuria ?--BUN/creat WNL--Monitor urine output with IV fluids
Constipation due to lack of oral intake vs colon malignancy
Anemia unknown chronicity--suspect due to chronic disease--pt denies any blood loss--drop from admission HGB of 10.2 to 8.7 could be dilutional--not iron deficient and on no meds (iron supps) could be due to hemolysis or production issue--
haptoglobin pending, serum reticulocyte count 'normal'--consider heme consult--folate low normal--will start repletion--B12 almost 700
History of IBS--doubt this presentation is related to IBS flare
severe protein calorie malnutrition--apprec nutrition
Essential hypertension-- no meds
Depression--no meds
Cervical cancer h/o--no evidence of malignancy by CT scans
code status --Full code
DVT prophylaxis�SCDs
Original Note:
Today's Communication/Plan
-
.
Assessment / Plan
Assessment / Plan
Discussion with patient regarding new diagnosis. She made it very clear that no one in her family should be made aware of updates to the patient's care or diagnosis of cancer until a care plan is developed and the patient says that it is okay to do
so.
1. Hypokalemia/hypomagnesemia
� 3.5 today; continue to monitor BMP.
- Magnesium 1.4 today; continue to monitor BMP, consider 2mg bag.
- Replete for potassium less than 4, magnesium less than 2.
2. Anemia secondary to acute blood loss versus nutritional deficiency versus dilutional
- Improved to 9.7 today; seems to be stabilizing.
- Review of previous records reveals hemoglobin 14-15 at past visits, most recently in May 2020.
- Trend hemoglobins, transfuse for goal hemoglobin greater than 7.
- Patient consented for blood, type and cross.
- Iron 63, TIBC 182, folate 3.1, vitamin B12 694.
- Haptoglobin pending; reticulocyte count 1.9.
- Patient given 1 dose of p.o. folate 03/10.
- Colonoscopy could not be done this admission as pt could not tolerate oral prep; per GI will do colonoscopy outpatient where she can take SuPrep.
- Endoscopy + pathology shows well-differentiated invasive adenocarcinoma. Plan for EUS on Friday; depending on depth, could be amenable to endoscopic mucosal resection.
3. Nausea/vomiting
-PRN Zofran
-IV Protonix 40 mg daily.
-RLQ pain continues; gastric obstruction series ordered yesterday; no evidence of bowel obstruction or free peritoneal air.
-Pt able to keep down water, but is not able to eat solid or semi solid food without vomiting.
-Begin TPN today.
4. Protein calorie malnutrition
-Cachexia
-Nutrition consult per GI recs
-PT/OT
Anticipated Discharge: > 48 hours
Subjective/Interval History
-
Date of Service: March 13, 2024
Pt notes no change in her current subjective condition. Pt notes that she tried to eat a solid meal yesterday after a dose of IV Zofran and was unable. Pt notes that the Zofran helps her nausea, and that she is able to drink water and keep it down,
but is not able to keep down solid food. Pt still complains of RLQ pain.
Discussion with patient regarding new diagnosis. She made it very clear that no one in her family should be made aware of updates to the patient's care or diagnosis of cancer until a care plan is developed and the patient says that it is okay to do
so.
Objective Data
-
Labs:
Laboratory Results
03/13/24
05:52
WBC 7.1
Hgb 9.7 L
Hct 28.4 L
Plt Count 307
Sodium 136
Potassium 3.9
Chloride 100
Carbon Dioxide 27
BUN 3 L
Creatinine 0.5 L
Glucose 74
Calcium 8.1 L
Total Bilirubin 1.0
AST 26
ALT < 10
Alkaline Phosphatase 58
Vital Signs:
Vital Signs
Temp Pulse Resp BP Pulse Ox
98.6 F 76 16 148/75 97
03/13/24 07:30 03/13/24 07:30 03/13/24 07:30 03/13/24 07:30 03/13/24 07:30
I&O
03/12/24 03/13/24 03/14/24
06:59 06:59 06:59
Intake Total 3695 / 3695 1200 / 1200
Output Total 600 / 600
Balance 3095 / 3095 1200 / 1200
Review of Systems
-
History Source: Patient
Constitutional: Reports No Symptoms
Respiratory: Reports No Symptoms
Cardiac: Reports No Symptoms
Abdomen/GI: Reports Abdominal Pain and Vomiting (only when trying to eat soild food, otherwise nausea controlled by IV Zofran)
Genitourinary: Reports No Symptoms
Musculoskeletal: Reports No Symptoms
Neuro: Reports No Symptoms
Physical Exam
-
General: Conversant and Cachectic
HEENT: Normocephalic and Atraumatic
Respiratory: Clear to Auscultation
Cardiac: Regular Rhythm and S1/S2
GI: Soft and Tender
Musculoskeletal: No Cyanosis and No Edema
Skin: Warm, Dry and Normal Turgor
Neuro: Awake, Alert and No Motor Deficits
Psych: Calm
Data Reviewed
-
Diagnostic Radiology: Image personally visualized and interpreted and Discussed with Patient
Labs: Labs Reviewed by me and Discussed with Patient
[2024-03-13 14:40] LABS: ALT (SGPT) < 10 U/L (0-35); AST (SGOT) 28 U/L (14-36); Albumin 2.9 g/dl (3.5-5.0); Alkaline Phosphatase 56 U/L (38-126); Blood Urea Nitrogen 3 mg/dl (7-17); Calcium 8.3 mg/dl (8.4-10.2); Carbon Dioxide 26 mmol/L (22-30); Chloride 99 mmol/L (98-107); Estimated Creatinine Clearance 62 ml/min; Glucose 69 mg/dl (70-99); Magnesium 1.4 mg/dl (1.6-2.3); Phosphorus 3.3 mg/dl (2.5-4.5); Potassium 3.5 mmol/L (3.5-5.1); Sodium 134 mmol/L (135-145); Total Bilirubin 1.3 mg/dl (0.2-1.3); Total Protein 5.4 g/dl (6.3-8.2); Triglycerides 104 mg/dl (10-149); eGFR > 60.00
[2024-03-13 15:28] VITALS: BP 149/87
[2024-03-13] MEDS: NOVOLOG FLEXPEN-LOW RESISTANCE SC (16:41)
[2024-03-13] MEDS: Parenteral Nutrition, Central 720 IV (21:27)
[2024-03-13 23:00] VITALS: BP 127/71
[2024-03-14 00:25] LABS: Glucose - Point of Care 132 mg/dl (70-99)
[2024-03-14] MEDS: NOVOLOG FLEXPEN-LOW RESISTANCE SC (00:26)
[2024-03-14 04:53] LABS: Ionized Calcium 1.17 mMOL/L (1.15-1.33)
[2024-03-14 05:45] LABS: ALT (SGPT) < 10 U/L (0-35); AST (SGOT) 24 U/L (14-36); Albumin 2.6 g/dl (3.5-5.0); Alkaline Phosphatase 49 U/L (38-126); Blood Urea Nitrogen 6 mg/dl (7-17); Calcium 8.6 mg/dl (8.4-10.2); Carbon Dioxide 31 mmol/L (22-30); Chloride 100 mmol/L (98-107); Direct Bilirubin 0.3 mg/dl (0.0-0.4); Estimated Creatinine Clearance 62 ml/min; Glucose 167 mg/dl (70-99); Magnesium 1.4 mg/dl (1.6-2.3); Phosphorus 3.6 mg/dl (2.5-4.5); Potassium 3.6 mmol/L (3.5-5.1); Sodium 135 mmol/L (135-145); Total Bilirubin 0.8 mg/dl (0.2-1.3); eGFR > 60.00
[2024-03-14 06:07] LABS: Glucose - Point of Care 174 mg/dl (70-99)
[2024-03-14] MEDS: NOVOLOG FLEXPEN-LOW RESISTANCE 1 UNITS SC ×3 (06:20→18:06)
[2024-03-14] MEDS: ZOFRAN 4 MG IV (06:39)
[2024-03-14 07:42] LABS: % Basophils 0.7 % (0-2); % Eosinophils 1.5 % (0-6); % Immature Granulocytes 0.3 % (0-0.5); % Lymphocytes 19.8 % (20.5-51.1); % Neutrophils 70.7 % (42.2-75.2); Absolute Basophils 0.1 10^3/uL (0-0.2); Absolute Eosinophils 0.1 10^3/uL (0-0.7); Absolute Lymphocytes 1.3 10^3/uL (1.2-3.4); Absolute Monocytes 0.5 10^3/uL (0.1-0.6); Absolute Neutrophils 4.7 10^3/uL (1.4-6.5); Hemoglobin 9.2 g/dL (12.0-16.0); Mean Corp Hgb Conc. 34.1 g/dL (33.0-37.0); Mean Corpuscular Hgb 31.6 pg (27.0-31.0); Mean Corpuscular Volume 92.8 fL (81.0-99.0); Mean Platelet Volume 9.6 fL (7.4-10.4); Nucleated Red Blood Cells % 0 %; Platelet Count 264 10^3/uL (130-400); Red Blood Cell Count 2.91 10^6/uL (4.20-5.40); Red Cell Dist. Width 17.1 % (11.5-14.5); White Blood Cell Count 6.7 10^3/uL (4.8-10.8)
[2024-03-14 08:04] VITALS: BMI 16.1
[2024-03-14 08:20] VITALS: BP 117/80
[2024-03-14] MEDS: FOLVITE 0.5 MG PO (09:13)
[2024-03-14] MEDS: NSS (PRESERVATIVE FREE) 10 ML IV (09:14)
[2024-03-14] MEDS: PROTONIX IV 40 MG IV (09:14)
--- NOTE | 2024-03-14 09:31 | W.PN.GI.CBS2 ---
Today's Communication / Plan
-
EUS tomorrow with Dr. Ruiz. Oncology consulted
Assessment / Plan
-
Impression: 68 year old female with pmhx IBS-D admitted with failure to thrive, nausea and unintentional weight loss found to have iron deficiency anemia. Her and CT is not remarkable for acute pathology, hemoglobin 10.2 --> 8.7 --> 9 -->9.7
#Unintentional Weight Loss
#Inability to tolerate PO
#Anemia likely from iron deficiency due limited oral intake versus acute bleeding vs. malignancy
-Low hgb level was found and it trended down from 10.2 to 8.7 ( Started IV fluid Hemodilution vs acute blood loss) --> 9 --> 9.7 --> 9.2
-No hematemesis, no melena, no abdominal pain
-BUN 15, TIBC 182, Iron 63, Folate 3.1, vit B12 694
-Lost 18 pounds in last 2 months
-CT Chest/Abdomen/Pelvis unremarkable for acute pathology
-s/p EGD without identifiable source of bleeding/anemia, path pending; recommending colonoscopy, patient unable to tolerate prep. She defers to outpatient where she can be prescribed sutab
--> - Mucosal nodule found in the esophagus at the GE junction, pathology returned well-differentiated, invasive adenocarcinoma; additional markers pending
-oncology consulted; unclear of primary esophageal vs. 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
-TPN started 03/13
-plan for EUS with tomorrow-- depending on depth of invasion, could be amenable to EMR vs. ESD, in which case, would need to be referred out
Subjective
Subjective
Date of Service: March 14, 2024
Patient seen in follow-up. No overnight events. PICC lined placed with initiation of TPN yesterday.
Objective
Data Reviewed
Laboratory Data:
Laboratory Results
03/14/24 07:30
03/14/24 07:30
Laboratory Results
Phosphorus 3.6 mg/dl (2.5-4.5) 03/14/24 04:47
Magnesium 1.4 mg/dl (1.6-2.3) L 03/14/24 04:47
Total Bilirubin 0.8 mg/dl (0.2-1.3) 03/14/24 04:47
AST 24 U/L (14-36) 03/14/24 04:47
ALT < 10 U/L (0-35) 03/14/24 04:47
Alkaline Phosphatase 49 U/L (38-126) 03/14/24 04:47
Lipase 94 U/L (23-300) 03/09/24 14:26
Vital Signs and I&O:
Vital Signs
Temp Pulse Resp BP Pulse Ox
98.3 F 80 18 127/71 96
03/13/24 23:00 03/13/24 23:00 03/13/24 23:00 03/13/24 23:00 03/13/24 23:00
I&O
03/13/24 03/14/24 03/15/24
06:59 06:59 06:59
Intake Total 1200 / 1200 500 / 500
Balance 1200 / 1200 500 / 500
Physical Exam
Physical Exam
GENERAL: Cachectic-appearance
ABDOMEN: +BS; soft, non-tender and non-distended; no rebound or guarding
--- NOTE | 2024-03-14 11:20 | CON.ONC ---
Impression
Impression
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
Plan
Plan
agree with current staging assessment with EGD/EUS and consideration of next steps with imaging (PET) pending results of aforementioned interventions
Patient History
History of Present Illness
68-year-old white female admitted 03/09/2024 with a history of 20 pound weight loss in the months prior to months accompanying a 10-month history of loss of appetite with nausea and dry heaving and inability to tolerate most solid food. She came to
the emergency room with complaints of burning central chest pain in addition to syncope.
Her labs on admission noted a normocytic anemia and new from the 3 years prior when her hemoglobin was in the normal range with otherwise a normal differential and platelet count her serum chemistries on admission noted profound hypokalemia of 2.9
with a hypomagnesemia of 1.1 with isolated AST transaminitis. CT scans of the chest abdomen and pelvis on admission noted no abnormalities acute or suspicious for malignancy metastatic or primary were noted though hepatic steatosis and coronary
artery calcifications were found.
2 days following admission she underwent EGD for which the small hiatal hernia was present with a muscular ring of the distal esophagus. There was a 15 mm nodule noted at the GE junction as well as multiple mucosal nodules of the duodenum and
patchy erythematous gastric antrum all of which were extensively biopsied.
Though no final report noted in pathology, preliminary findings per GI note noted the 15 mm submucosal nodule the distal esophagus was found to be consistent with an adenocarcinoma.
Past-Medical/Surgical History
Cervical carcinoma remote; prior history hypertension
Patient Medication
�Medication �Instructions �Recorded �Confirmed �Last Taken �Type
No Meds [No Current Medications] 03/09/24 03/09/24 Unknown History
Active Medications
Generic Name Dose Route Start Last Admin
Trade Name Freq PRN Reason Stop Dose Admin
Dextrose 12.5 grams 03/13/24 13:29
Dextrose 50% (0.5 Grams/Ml) 50 Ml Syringe IV 04/10/24 13:28
[id number] PRN
hypoglycemia
Protocol
Folic Acid 0.5 mg 03/10/24 14:00 03/14/24 09:13
Folic Acid 1 Mg Tablet PO 04/07/24 13:59 0.5 mg
DAILY MIMI Administration
Glucagon 1 mg 03/13/24 13:29
Glucagon 1 Mg Vial IM 04/10/24 13:28
PRN PRN
hypoglycemia
Protocol
Nutrition (Parenteral) 720 ml in 720 mls @ 30 mls/hr 03/13/24 21:00 03/13/24 21:27
Parenteral Nutrition, Central IV 03/14/24 20:59 720 mls
ONCE@2100 NR Administration
Protocol
Nutrition (Parenteral) 720 ml in 720 mls @ 30 mls/hr 03/14/24 21:00
Parenteral Nutrition, Central IV 03/15/24 20:59
ONCE@2100 NR
Protocol
Insulin Aspart 0 units 03/13/24 18:00 03/14/24 06:20
Insulin Aspart Low Resistance 300 Units/3 Ml Pen.Injctr SC 04/10/24 17:59 1 units
Q6 MIMI Administration
Protocol
Ondansetron HCl 4 mg 03/10/24 18:48 03/14/24 06:39
Ondansetron 4 Mg/2 Ml Vial IV 04/07/24 18:47 4 mg
Q6HPRN PRN Administration
NAUSEA/VOMITING
Pantoprazole Sodium 40 mg 03/10/24 15:00 03/14/24 09:14
Pantoprazole Sodium 40 Mg/10 Ml Vial IV 04/07/24 14:59 40 mg
DAILY MIMI Administration
Sodium Chloride 10 ml 03/10/24 15:00 03/14/24 09:14
Sodium Chloride 0.9% (Preservative Free) 10 Ml Vial IV 04/07/24 14:59 10 ml
DAILY MIMI Administration
Sodium Chloride 0 flush 03/10/24 09:00 03/12/24 17:33
Sodium Chloride 0.9% (Flush) Syringe IV 04/07/24 08:59 2 flush
PER PROTOCOL MIMI Administration
Review of Systems
-
History Source: Patient
All Other Systems: Reviewed and Negative
Physical Exam
-
General: Comfortable and Appears Chronically Ill
Cardiology: Normal Sinus Rhythm
Pulmonary: Clear
GI: Soft and Normal Bowel Sounds
Musculoskeletal: No Clubbing, No Cyanosis and No Edema
Skin: Warm
Psych: Calm
Labs
Lab Results
WBC Cancelled 03/14/24 07:30
RBC Cancelled 03/14/24 07:30
Hgb Cancelled 03/14/24 07:30
Hct Cancelled 03/14/24 07:30
MCV Cancelled 03/14/24 07:30
MCH Cancelled 03/14/24 07:30
MCHC Cancelled 03/14/24 07:30
RDW Cancelled 03/14/24 07:30
Plt Count Cancelled 03/14/24 07:30
MPV Cancelled 03/14/24 07:30
Abs Immat Gran (auto) 0.0 10^3/uL (0-0.05) 03/14/24 04:47
Absolute Neuts (auto) 4.7 10^3/uL (1.4-6.5) 03/14/24 04:47
Absolute Lymphs (auto) 1.3 10^3/uL (1.2-3.4) 03/14/24 04:47
Absolute Monos (auto) 0.5 10^3/uL (0.1-0.6) 03/14/24 04:47
Absolute Eos (auto) 0.1 10^3/uL (0-0.7) 03/14/24 04:47
Absolute Basos (auto) 0.1 10^3/uL (0-0.2) 03/14/24 04:47
Immature Gran % 0.3 % (0-0.5) 03/14/24 04:47
Neutrophils % 70.7 % (42.2-75.2) 03/14/24 04:47
Lymphocytes % 19.8 % (20.5-51.1) L 03/14/24 04:47
Monocytes % 7.0 % (1.7-9.3) 03/14/24 04:47
Eosinophils % 1.5 % (0-6) 03/14/24 04:47
Basophils % 0.7 % (0-2) 03/14/24 04:47
Creatinine Cancelled 03/14/24 07:30
Vital Signs
Vital Signs
Temp Pulse Resp BP Pulse Ox
98.7 F 90 16 117/80 95
03/14/24 08:20 03/14/24 08:20 03/14/24 08:20 03/14/24 08:20 03/14/24 08:20
[2024-03-14 11:58] LABS: Glucose - Point of Care 189 mg/dl (70-99)
--- NOTE | 2024-03-14 12:49 | W.PN.HOSP.TC ---
Addendum entered and electronically signed by Hamida Rios MD 03/14/24 13:22:
I saw and evaluated the patient independently. I reviewed the resident�s note and agree with findings and plan as documented by Dr. Pope.
GENERAL: cachectic, chronically ill appearing pale female in no apparent distress
HEENT: NC/AT
HEART: regular rate and rhythm, +S1, +S2
LUNGS : clear to auscultation bilaterally
ABDOM: soft, nontender, nondistended, + bowel sounds
EXT: no cyanosis, clubbing, or edema
NEUROLOGIC: grossly intact
Does NOT want us, nursing, etc to discuss her medical conditions with ANY family unless we get specific permission from her.
Severe hypokalemia due to hypomagnesemia due to recurrent vomiting with severe protein calorie malnutrition suspecting occult malignancy (actually nodule noted on EGD is invasive adenocarcinoma)--CT scans without any acute/chronic
abnormalities--replete K, mag---keep K > 4 and mag >2--once patient does start to eat, watch for refeeding syndrome, unable to get pt to eat, started TPN (ordered by us)--Dr. Ruzi to do EUS Friday--apprec onc
Syncopal episodes/palpitations due to hypomagnesemia/hypokalemia--PT/OT--eval after lytes repleted--CT head negative
Anuria ?--BUN/creat WNL--Monitor urine output with IV fluids
Constipation due to lack of oral intake vs colon malignancy
Anemia unknown chronicity--suspect due to chronic disease--pt denies any blood loss--drop from admission HGB of 10.2 to 8.7 could be dilutional--not iron deficient and on no meds (iron supps) could be due to hemolysis or production issue--
haptoglobin pending, serum reticulocyte count 'normal'-- apprec heme/onc--folate low normal--will start repletion--B12 almost 700
History of IBS--doubt this presentation is related to IBS flare
severe protein calorie malnutrition--apprec nutrition
Essential hypertension-- no meds
Depression--no meds
Cervical cancer h/o--no evidence of malignancy by CT scans
code status --Full code
DVT prophylaxis�SCDs
Original Note:
Today's Communication/Plan
-
.
Assessment / Plan
Assessment / Plan
Discussion with patient regarding new diagnosis. She made it very clear that no one in her family should be made aware of updates to the patient's care or diagnosis of cancer until a care plan is developed and the patient says that it is okay to do
so.
1. Hypokalemia/hypomagnesemia
� 3.6 today; continue to monitor BMP.
- Magnesium 1.4 today; continue to monitor BMP, consider 1mg bag since the patient is getting Mg in TPN as well.
- Replete for potassium less than 4, magnesium less than 2.
2. Anemia secondary to acute blood loss versus nutritional deficiency versus dilutional
- 9.2 today; seems to be stabilizing. Continue to monitor.
- Review of previous records reveals hemoglobin 14-15 at past visits, most recently in May 2020.
- Trend hemoglobins, transfuse for goal hemoglobin greater than 7.
- Patient consented for blood, type and cross.
- Iron 63, TIBC 182, folate 3.1, vitamin B12 694.
- Haptoglobin pending; reticulocyte count 1.9.
- Patient given 1 dose of p.o. folate 03/10.
- Colonoscopy could not be done this admission as pt could not tolerate oral prep; per GI will do colonoscopy outpatient where she can take SuPrep.
- Endoscopy + pathology shows well-differentiated invasive adenocarcinoma.
- Plan for EUS on Friday; depending on depth, could be amenable to endoscopic mucosal resection.
3. Nausea/vomiting
-PRN Zofran
-IV Protonix 40 mg daily.
-Abdominal pain continues but improved; worse with retching, likely musculoskeletal; gastric obstruction series ordered yesterday; no evidence of bowel obstruction or free peritoneal air.
-Pt able to keep down water, but is not able to eat solid or semi solid food without vomiting.
-Began TPN yesterday. Monitor labs, urine. Insulin SS.
4. Protein calorie malnutrition
-Cachexia
-Nutrition consult per GI recs
-PT/OT
Anticipated Discharge: > 48 hours
Subjective/Interval History
-
Date of Service: March 14, 2024
No acute complaints today. Pt started on TPN yesterday and states she is happy with this decision and feels better. Pt notes that she is still nauseous when she tries to eat semi-solid food or drink bob ruddy, but is able to drink water without
feeling nauseous. Pt still has diffuse abdominal pain that is improved from yesterday. Pt is denying stronger pain medication in the interim. Denies CP, SOB, LE edema, or trouble urinating.
Objective Data
-
Labs:
Laboratory Results
03/14/24 03/14/24
04:47 07:30
WBC 6.7 Cancelled
Hgb 9.2 L Cancelled
Hct 27.0 L Cancelled
Plt Count 264 Cancelled
Sodium 135 Cancelled
Potassium 3.6 Cancelled
Chloride 100 Cancelled
Carbon Dioxide 31 H Cancelled
BUN 6 L Cancelled
Creatinine 0.5 L Cancelled
Glucose 167 H Cancelled
Calcium 8.6 Cancelled
Total Bilirubin 0.8
AST 24
ALT < 10
Alkaline Phosphatase 49
Vital Signs:
Vital Signs
Temp Pulse Resp BP Pulse Ox
98.7 F 90 16 117/80 95
03/14/24 08:20 03/14/24 08:20 03/14/24 08:20 03/14/24 08:20 03/14/24 09:00
I&O
03/13/24 03/14/24 03/15/24
06:59 06:59 06:59
Intake Total 1200 / 1200 500 / 500
Balance 1200 / 1200 500 / 500
Review of Systems
-
History Source: Patient
Constitutional: Reports No Symptoms
Respiratory: Reports No Symptoms
Cardiac: Reports No Symptoms
Abdomen/GI: Reports Abdominal Pain (improved; diffuse. )
Genitourinary: Reports No Symptoms
Neuro: Reports No Symptoms
Physical Exam
-
General: No Apparent Distress, Conversant and Cachectic
HEENT: Normocephalic and Atraumatic
Respiratory: Clear to Auscultation
Cardiac: Regular Rhythm and S1/S2
GI: Soft and Tender (mild throughout)
Skin: Warm
Neuro: Awake, Alert and Oriented
Psych: Calm and Intact Judgement/Insight
[2024-03-14 16:38] VITALS: BP 126/81
[2024-03-14 18:05] LABS: Glucose - Point of Care 166 mg/dl (70-99)
[2024-03-14] MEDS: TYLENOL 650 MG PO (19:54)
[2024-03-14] MEDS: Parenteral Nutrition, Central 720 IV (21:47)
[2024-03-14 23:00] VITALS: BP 101/62
[2024-03-15 00:12] LABS: Glucose - Point of Care 143 mg/dl (70-99)
[2024-03-15] MEDS: NOVOLOG FLEXPEN-LOW RESISTANCE SC ×4 (00:17→19:27)
[2024-03-15 04:43] LABS: ALT (SGPT) < 10 U/L (0-35); AST (SGOT) 22 U/L (14-36); Albumin 2.6 g/dl (3.5-5.0); Alkaline Phosphatase 42 U/L (38-126); Blood Urea Nitrogen 10 mg/dl (7-17); Calcium 8.8 mg/dl (8.4-10.2); Carbon Dioxide 32 mmol/L (22-30); Chloride 103 mmol/L (98-107); Estimated Creatinine Clearance 61 ml/min; Glucose 120 mg/dl (70-99); Magnesium 1.6 mg/dl (1.6-2.3); Phosphorus 3.7 mg/dl (2.5-4.5); Potassium 3.9 mmol/L (3.5-5.1); Sodium 141 mmol/L (135-145); Total Bilirubin 0.5 mg/dl (0.2-1.3); Triglycerides 100 mg/dl (10-149); eGFR > 60.00
[2024-03-15 06:00] VITALS: BMI 16.0
[2024-03-15 06:10] LABS: Glucose - Point of Care 136 mg/dl (70-99)
[2024-03-15 07:32] VITALS: BP 121/70
[2024-03-15 08:35] LABS: % Basophils 0.9 % (0-2); % Eosinophils 2.1 % (0-6); % Immature Granulocytes 1.6 % (0-0.5); % Lymphocytes 22.2 % (20.5-51.1); % Monocytes 10.9 % (1.7-9.3); % Neutrophils 62.3 % (42.2-75.2); Absolute Basophils 0.1 10^3/uL (0-0.2); Absolute Eosinophils 0.1 10^3/uL (0-0.7); Absolute Immature Granulocytes 0.1 10^3/uL (0-0.05); Absolute Lymphocytes 1.3 10^3/uL (1.2-3.4); Absolute Monocytes 0.6 10^3/uL (0.1-0.6); Absolute Neutrophils 3.6 10^3/uL (1.4-6.5); Hematocrit 27.9 % (37.0-47.0); Hemoglobin 9.4 g/dL (12.0-16.0); Mean Corp Hgb Conc. 33.7 g/dL (33.0-37.0); Mean Corpuscular Hgb 31.8 pg (27.0-31.0); Mean Corpuscular Volume 94.3 fL (81.0-99.0); Mean Platelet Volume 9.8 fL (7.4-10.4); Nucleated Red Blood Cells % 0 %; Platelet Count 251 10^3/uL (130-400); Red Blood Cell Count 2.96 10^6/uL (4.20-5.40); Red Cell Dist. Width 16.8 % (11.5-14.5); White Blood Cell Count 5.8 10^3/uL (4.8-10.8)
[2024-03-15] MEDS: FOLVITE 0.5 MG PO (08:52)
[2024-03-15] MEDS: NSS (PRESERVATIVE FREE) 10 ML IV (08:53)
[2024-03-15] MEDS: PROTONIX IV 40 MG IV (08:53)
[2024-03-15 11:21] LABS: Glucose - Point of Care 127 mg/dl (70-99)
--- NOTE | 2024-03-15 12:02 | W.PN.ONC ---
Today's Communication / Plan
-
Awaiting endoscopic ultrasound to be done today. However, this seemingly is a fairly small cancer, unclear whether it can be treated locally or will require more aggressive therapy. In either case, it does not seem to be an adequate explanation
for her profound weight loss.
Impression
Impression
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
Plan
Plan
agree with current staging assessment with EGD/EUS and consideration of next steps with imaging (PET) pending results of aforementioned interventions
Subjective/Objective
Subjective/Objective
She is feeling reasonably well. She reports no new GI symptoms. Examination is unchanged. She continues to appear cachectic.
Vital Signs:
Vital Signs
Temp Pulse Resp BP Pulse Ox
97.6 F 82 17 121/70 95
03/15/24 07:32 03/15/24 07:32 03/15/24 07:32 03/15/24 07:32 03/15/24 07:32
Lab Results:
Laboratory Data
WBC 5.8 10^3/uL (4.8-10.8) 03/15/24 08:01
Hgb 9.4 g/dL (12.0-16.0) L 03/15/24 08:01
Plt Count 251 10^3/uL (130-400) 03/15/24 08:01
eGFR > 60.00 03/15/24 04:01
--- NOTE | 2024-03-15 13:27 | W.PN.UPDATE ---
Update Note
Progress Note Update
I saw and evaluated the patient independently. I reviewed the resident�s note and agree with findings and plan as documented by Dr. Pope.
Patient complains of intermittent, 'lightening,' sternal retrosternal pain. She also complains of abdominal pain.
Gen: NAD, AAOx3, appears chronically ill, cachectic, malnourished.
Eyes: EOMI, PERRLA, no scleral icterus.
Neck: supple.
CV: RRR, +S1/S2, no m/r/g.
Resp: CTAB, no rales, wheezes, or rhonchi.
Abd: +BS, soft, diffuse tenderness to palpation, ND
Skin: No rashes.
Neuro: CN 2-12 intact, non-focal.
Psych: Normal mood and affect.
CT Head: No acute intracranial abnormality noted.
CT C/A/P: No significant acute abnormality identified in the chest, abdomen or pelvis
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
-found on EGD
-Onc following
-cannot keep anything down, currently on TPN
-EUS today
Severe hypokalemia:
-due to hypomagnesemia due to recurrent vomiting with severe protein calorie malnutrition
-K and Mg repleted
-additional 2g IV Mg today
Anemia:
-unknown chronicity but likely due to chronic disease
-denies any blood loss
-Hb drop was likely dilutional
-Heme-Onc following
-retic ct, B12 normal
-cont folate for low normal folate
Other problems:
Syncopal episodes/palpitations due to hypomagnesemia/hypokalemia: PT/OT
Constipation
h/o IBS
Severe protein calorie malnutrition
Depression
h/o cervical cancer
FULL/SCDs
[2024-03-15] MEDS: MAGNESIUM SULFATE 50 IV (14:02)
--- NOTE | 2024-03-15 14:40 | W.PN.HOSP.TC ---
Today's Communication/Plan
-
EUS today. Patient tolerating TPN. Continue to monitor lytes and follow up on GI assessment/plan.
Assessment / Plan
Assessment / Plan
Discussion with patient regarding new diagnosis. She made it very clear that no one in her family should be made aware of updates to the patient's care or diagnosis of cancer until a care plan is developed and the patient says that it is okay to do
so.
1. Hypokalemia/hypomagnesemia
� 3.9 today; continue to monitor BMP.
- Magnesium 1.6 today; continue to monitor BMP; electrolytes calculated into TPN, but will give 2 mg bag today.
- Replete for potassium less than 4, magnesium less than 2.
2. Anemia secondary to acute blood loss versus nutritional deficiency versus dilutional
- 9.4 today; stable in this range for 4 days. Continue to monitor.
- Review of previous records reveals hemoglobin 14-15 at past visits, most recently in May 2020.
- Trend hemoglobins, transfuse for goal hemoglobin greater than 7.
- Patient consented for blood, type and cross.
- Iron 63, TIBC 182, folate 3.1, vitamin B12 694.
- Haptoglobin pending; reticulocyte count 1.9.
- Patient given 1 dose of p.o. folate 03/10.
- Colonoscopy could not be done this admission as pt could not tolerate oral prep; per GI will do colonoscopy outpatient where she can take SuPrep.
- Endoscopy + pathology shows well-differentiated invasive adenocarcinoma.
- Plan for EUS on Friday; depending on depth, could be amenable to endoscopic mucosal resection.
3. GI Adenocarcinoma
- Colonoscopy could not be done this admission as pt could not tolerate oral prep; per GI will do colonoscopy outpatient where she can take SuPrep.
- Endoscopy + pathology shows well-differentiated invasive adenocarcinoma.
- Plan for EUS on Friday; depending on depth, could be amenable to endoscopic mucosal resection.
- Appreciate GI. Continue to follow.
4. Nausea/vomiting
-PRN Zofran
-IV Protonix 40 mg daily.
-Abdominal pain continues but improved; worse with retching, likely musculoskeletal; gastric obstruction series ordered yesterday; no evidence of bowel obstruction or free peritoneal air.
-Pt able to keep down water, but is not able to eat solid or semi solid food without vomiting.
-Began TPN 2 days ago. Patient tolerating. Monitor labs, urine. Insulin SS.
4. Protein calorie malnutrition
-Cachexia
-Nutrition consult per GI recs
-PT/OT
5. DVT PPx
- SCDs
Anticipated Discharge: > 48 hours
Subjective/Interval History
-
Date of Service: March 15, 2024
Pt is scheduled for her EUS today. No acute complaints today. Still has abdominal pain unchanged from last few days. Pt is tolerating TPN and has been NPO since midnight. Denies CP, SOB, trouble urinating.
Objective Data
-
Labs:
Laboratory Results
03/15/24 03/15/24
04:01 08:01
WBC 5.8
Hgb 9.4 L
Hct 27.9 L
Plt Count 251
Sodium 141
Potassium 3.9
Chloride 103
Carbon Dioxide 32 H
BUN 10
Creatinine 0.5 L
Glucose 120 H
Calcium 8.8
Total Bilirubin 0.5
AST 22
ALT < 10
Alkaline Phosphatase 42
Vital Signs:
Vital Signs
Temp Pulse Resp BP Pulse Ox
97.6 F 82 17 121/70 95
03/15/24 07:32 03/15/24 07:32 03/15/24 07:32 03/15/24 07:32 03/15/24 08:50
I&O
03/14/24 03/15/24 03/16/24
06:59 06:59 06:59
Intake Total 500 / 500 1260 / 1260
Balance 500 / 500 1260 / 1260
Review of Systems
-
History Source: Patient
Constitutional: Reports No Symptoms
Respiratory: Reports No Symptoms
Cardiac: Reports No Symptoms
Abdomen/GI: Reports Abdominal Pain
Neuro: Reports No Symptoms
Physical Exam
-
General: Comfortable, Conversant and Cachectic
HEENT: Normocephalic, Atraumatic and Moist Mucous Membranes
Respiratory: Clear to Auscultation
Cardiac: Regular Rhythm and S1/S2
GI: Soft and Tender (mild, diffuse)
Musculoskeletal: No Cyanosis and No Edema
Skin: Warm
Neuro: Awake and Alert
Psych: Calm and Intact Judgement/Insight
Data Reviewed
-
Labs: Labs Reviewed by me and Discussed with Patient
--- NOTE | 2024-03-15 14:54 | CM ---
Chart reviewed and will await updated orders and plan for patient from physicians. Patient has no insurance working with [facility], she is aware of documentation that needs to be provided to [facility].
Plan; To follow with patient progress and assist with discharge planning needs.
[2024-03-15 15:26] VITALS: BP 120/70
[2024-03-15 18:18] VITALS: BP 87/49; BP_SYST 24
[2024-03-15 18:30] VITALS: BP 89/64; BP_SYST 21
[2024-03-15 18:45] VITALS: BP 107/75
[2024-03-15 19:01] LABS: Glucose - Point of Care 105 mg/dl (70-99)
[2024-03-15] MEDS: Parenteral Nutrition, Central 910 IV (21:59)
[2024-03-15 23:19] LABS: Glucose - Point of Care 148 mg/dl (70-99)
[2024-03-15 23:56] VITALS: BP 119/69
[2024-03-16] MEDS: NOVOLOG FLEXPEN-LOW RESISTANCE SC ×5 (00:32→23:05)
[2024-03-16 06:00] VITALS: BMI 16.4
[2024-03-16 06:32] LABS: Glucose - Point of Care 108 mg/dl (70-99)
[2024-03-16 06:54] LABS: Blood Urea Nitrogen 15 mg/dl (7-17); Calcium 8.4 mg/dl (8.4-10.2); Carbon Dioxide 28 mmol/L (22-30); Chloride 105 mmol/L (98-107); Estimated Creatinine Clearance 62 ml/min; Glucose 90 mg/dl (70-99); Magnesium 1.9 mg/dl (1.6-2.3); Phosphorus 3.9 mg/dl (2.5-4.5); Potassium 4.5 mmol/L (3.5-5.1); Sodium 139 mmol/L (135-145); eGFR > 60.00
[2024-03-16 07:37] VITALS: BP 130/76
--- NOTE | 2024-03-16 08:27 | W.PN.GI.CBS2 ---
Today's Communication / Plan
-
Referral to [facility] or [facility] for ESD. Nutrition-- currently taking bites of food
Assessment / Plan
-
Impression: 68 year old female with pmhx IBS-D admitted with failure to thrive, nausea and unintentional weight loss found to have iron deficiency anemia. Her and CT is not remarkable for acute pathology, hemoglobin 10.2 --> 8.7 --> 9 -->9.7
#Unintentional Weight Loss
#Inability to tolerate PO
#Anemia likely from iron deficiency due limited oral intake versus acute bleeding vs. malignancy
-Low hgb level was found and it trended down from 10.2 to 8.7 ( Started IV fluid Hemodilution vs acute blood loss) --> 9 --> 9.7 --> 9.2
-No hematemesis, no melena, no abdominal pain
-BUN 15, TIBC 182, Iron 63, Folate 3.1, vit B12 694
-Lost 18 pounds in last 2 months
-CT Chest/Abdomen/Pelvis unremarkable for acute pathology
-s/p EGD without identifiable source of bleeding/anemia, path pending; recommending colonoscopy, patient unable to tolerate prep. She defers to outpatient where she can be prescribed sutab
--> - Mucosal nodule found in the esophagus at the GE junction, pathology returned well-differentiated, invasive adenocarcinoma; additional markers pending
-oncology following unclear of primary esophageal vs. 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
-TPN started 03/13, stopped yesterday-- unable to place DHT as concern to cause mucosal disruption of the nodule
-s/p EUS with Dr. Ruiz on 03/15: Impression:
- Nodular, ulcerated mucosa (from recent biopsy) in
the GEJ at 40 cm from the incisors.
- No gross lesions in the entire stomach.
- Normal duodenal bulb, first portion of the duodenum
and second portion of the duodenum.
- A possible wall thickening was seen in the
gastroesophageal junction. The thickening appeared to
primarily be within the luminal interface/superficial
mucosa (Layer 1) and deep mucosa (Layer 2). The
submucosal layer appeared intact.
- Pancreatic parenchymal abnormalities consisting of
hyperechoic strands and hyperechoic foci were noted in
the pancreatic head and pancreatic body.
- There was no sign of significant pathology in the
common bile duct.
-Discussed referral to tertiary care center with patient- she is amenable to [facility] vs. [facility], will work on connecting with these institutions. This would generally be an outpatient procedure. As long as she is taking in enough calories, no need for
inpatient transfer.
Subjective
Subjective
Date of Service: March 16, 2024
Patient seen at the bedside, overall, feeling well this morning. S/p EUS with Dr. Ruiz yesterday, recommending referral to tertiary care center for ESD. She is currently eating some eggs and toast, able to tolerate bites without
vomiting/regurgitation.
Objective
Data Reviewed
Laboratory Data:
Laboratory Results
03/15/24 08:01
03/16/24 05:46
Laboratory Results
Phosphorus 3.9 mg/dl (2.5-4.5) 03/16/24 05:46
Magnesium 1.9 mg/dl (1.6-2.3) 03/16/24 05:46
Total Bilirubin 0.5 mg/dl (0.2-1.3) 03/15/24 04:01
AST 22 U/L (14-36) 03/15/24 04:01
ALT < 10 U/L (0-35) 03/15/24 04:01
Alkaline Phosphatase 42 U/L (38-126) 03/15/24 04:01
Lipase 94 U/L (23-300) 03/09/24 14:26
Vital Signs and I&O:
Vital Signs
Temp Pulse Resp BP Pulse Ox
98.1 F 86 20 130/76 100
03/16/24 07:37 03/16/24 07:37 03/16/24 07:37 03/16/24 07:37 03/16/24 07:37
I&O
03/15/24 03/16/24 03/17/24
06:59 06:59 06:59
Intake Total 1260 / 1260 360 / 360
Balance 1260 / 1260 360 / 360
Physical Exam
Physical Exam
GENERAL: Cachectic-appearance
ABDOMEN: +BS; soft, non-tender and non-distended; no rebound or guarding
[2024-03-16] MEDS: FOLVITE 0.5 MG PO (10:05)
[2024-03-16] MEDS: PROTONIX IV 40 MG IV (10:06)
[2024-03-16] MEDS: NSS (PRESERVATIVE FREE) 10 ML IV (10:06)
[2024-03-16 11:11] LABS: Glucose - Point of Care 118 mg/dl (70-99)
--- NOTE | 2024-03-16 11:45 | W.PN.HOSP.TC ---
Today's Communication/Plan
-
.
Assessment / Plan
Assessment / Plan
Discussion with patient regarding new diagnosis. She made it very clear that no one in her family should be made aware of updates to the patient's care or diagnosis of cancer until a care plan is developed and the patient says that it is okay to do
so.
1. Hypokalemia/hypomagnesemia
� 4.5 today; continue to monitor BMP.
- Bump likely from TPN, monitor.
- Magnesium 1.9 today; continue to monitor BMP.
- Replete for potassium less than 4, magnesium less than 2.
2. Anemia secondary to acute blood loss versus nutritional deficiency versus dilutional
- 9.4 today; stable in this range for 5 days. Continue to monitor.
- Review of previous records reveals hemoglobin 14-15 at past visits, most recently in May 2020.
- Trend hemoglobins, transfuse for goal hemoglobin greater than 7.
- Patient consented for blood, type and cross.
- Iron 63, TIBC 182, folate 3.1, vitamin B12 694.
- Haptoglobin pending; reticulocyte count 1.9.
- Patient given 1 dose of p.o. folate 03/10.
3. GI Adenocarcinoma
- Endoscopy + pathology shows well-differentiated invasive adenocarcinoma.
- Endoscopy + pathology shows well-differentiated invasive adenocarcinoma.
- EUS: Wall thickening at [facility], pancreatic disease of unknown significance.
- Per GI, patient to get outpatient referral for ESD at [place] (Dr Goldstein)
- Colonoscopy could not be done this admission as pt could not tolerate oral prep; per GI will do colonoscopy outpatient where she can take SuPrep.
- Appreciate GI. Continue to follow.
4. Nausea/vomiting
-PRN Zofran; patient has declined recently.
-IV Protonix 40 mg daily.
- Pt now able to take a few bites. Will need to increase intake, otherwise potential discharge on TPN.
-Abdominal pain continues but improved; worse with retching, likely musculoskeletal; gastric obstruction series ordered yesterday; no evidence of bowel obstruction or free peritoneal air.
-Began TPN 3 days ago. Patient tolerating. Monitor labs, urine. Insulin SS.
4. Protein calorie malnutrition
-Cachexia
-Nutrition consult per GI recs
-PT/OT
5. DVT PPx
- SCDs
Anticipated Discharge: 24 - 48 hours
Subjective/Interval History
-
Date of Service: March 16, 2024
EUS yesterday. Patient tolerated well. Patient notes a still achy abdomen, however, feels good with TPN and has been able to eat pudding with no issue and had 2-3 bites of solid food (eggs) before she would stop due to the feeling she might become
nauseous. Denies vomiting. Denies fevers, CP, SOB, leg swelling/pain, trouble swallowing.
Objective Data
-
Labs:
Laboratory Results
03/16/24
05:46
Sodium 139
Potassium 4.5
Chloride 105
Carbon Dioxide 28
BUN 15
Creatinine 0.4 L
Glucose 90
Calcium 8.4
Vital Signs:
Vital Signs
Temp Pulse Resp BP Pulse Ox
98.1 F 86 20 130/76 100
03/16/24 07:37 03/16/24 07:37 03/16/24 07:37 03/16/24 07:37 03/16/24 07:37
I&O
03/15/24 03/16/24 03/17/24
06:59 06:59 06:59
Intake Total 1260 / 1260 360 / 360
Balance 1260 / 1260 360 / 360
Review of Systems
-
History Source: Patient
Constitutional: Reports No Symptoms
EENT: Reports No Symptoms Reported
Respiratory: Reports No Symptoms
Cardiac: Reports No Symptoms
Abdomen/GI: Reports Abdominal Pain (improved) and Other (denies vomiting)
Musculoskeletal: Reports No Symptoms
Neuro: Reports No Symptoms
Hematologic / Lymphatic: Reports No Symptoms
Physical Exam
-
General: No Apparent Distress, Comfortable and Cachectic
HEENT: Normocephalic, Atraumatic and Other (no scleral icterus)
Respiratory: Clear to Auscultation
Cardiac: Regular Rhythm and S1/S2
GI: Soft, Nontender and Nondistended
Skin: Warm and Dry
Neuro: Awake, Alert and AO x 3
Psych: Calm
Data Reviewed
-
Medical Tests (Nuc Med, Echo etc): Report Reviewed by me and Discussed with Patient
Labs: Labs Reviewed by me and Discussed with Patient
--- NOTE | 2024-03-16 12:39 | W.PN.UPDATE ---
Update Note
Progress Note Update
I saw and evaluated the patient independently. I reviewed the resident�s note and agree with findings and plan as documented by Dr. Pope.
No new complaints. Has been tolerating some oral intake. No vomiting since I saw her yesterday.
Gen: NAD, AAOx3, appears chronically ill, cachectic, malnourished.
Eyes: EOMI, PERRLA, no scleral icterus.
Neck: supple.
CV: remains RRR, +S1/S2, no m/r/g.
Resp: remains CTAB, no rales, wheezes, or rhonchi.
Abd: +BS, soft, NT to light palpation, ND
Skin: No rashes.
Neuro: CN 2-12 intact, non-focal.
Psych: Normal mood and affect.
CT Head: No acute intracranial abnormality noted.
CT C/A/P: No significant acute abnormality identified in the chest, abdomen or pelvis
EUS 03/15/24: - Nodular, ulcerated mucosa (from recent biopsy) in
the GEJ at 40 cm from the incisors.
- No gross lesions in the entire stomach.
- Normal duodenal bulb, first portion of the duodenum
and second portion of the duodenum.
- A possible wall thickening was seen in the
gastroesophageal junction. The thickening appeared to
primarily be within the luminal interface/superficial
mucosa (Layer 1) and deep mucosa (Layer 2). The
submucosal layer appeared intact.
- Pancreatic parenchymal abnormalities consisting of
hyperechoic strands and hyperechoic foci were noted in
the pancreatic head and pancreatic body.
- There was no sign of significant pathology in the
common bile duct.
- No specimens collected.
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
-fouTotal time spent on today's encounter was 50 minutes which included time spent in counseling the patient/family regarding diagnosis and treatment plan as listed above, goals of care, and symptom management. Case was discussed with nursing staff,
specialists, and care coordinators/case management. All labs and imaging personally reviewed by me. Remainder the time spent in detailed review of previous records, lab data, imaging, and other medical provider documentation.
nd on EGD
-Onc following
-EUS above, notable for possible wall thickening at the GEJ, pancreatic parenchymal abnormalities in the pancreatic head and body.
-Patient has been referred to Dr. Goldstein at [place] for ESD
-currently on TPN. Reportedly taking 50% of meals. Cont TPN today. Official calorie counts have been ordered.
Severe hypokalemia:
-due to hypomagnesemia due to recurrent vomiting with severe protein calorie malnutrition
-K and Mg repleted
Anemia:
-unknown chronicity but likely due to chronic disease
-denies any blood loss
-Hb drop was likely dilutional
-Heme-Onc following
-retic ct, B12 normal
-cont folate for low normal folate
Other problems:
Syncopal episodes/palpitations due to hypomagnesemia/hypokalemia: PT/OT
Constipation
h/o IBS
Severe protein calorie malnutrition
Depression
h/o cervical cancer
FULL/SCDs
Dispo: likely d/c 24-48 hours depending on PO intake.
Total time spent on today's encounter was 50 minutes which included time spent in counseling the patient/family regarding diagnosis and treatment plan as listed above, goals of care, and symptom management. Case was discussed with nursing staff,
specialists, and care coordinators/case management. All labs and imaging personally reviewed by me. Remainder the time spent in detailed review of previous records, lab data, imaging, and other medical provider documentation.
--- NOTE | 2024-03-16 14:40 | CM ---
Chart reviewed and will continue to follow with patient progress, patient was admitted from home, lives with son and grandchildren. Independent with adl's and ambulation.
Plan; Home with son and family when stable.
[2024-03-16 14:57] VITALS: BP 113/65
--- NOTE | 2024-03-16 14:58 | W.PN.ONC2 ---
Today's Communication / Plan
-
Pt has been referred to Dr. Cody at [facility] for consideration of ESD -inpt transfer vs outpt follow up TBD
Impression
Impression
03/11/24 GE junction at 40cm nodule invasive adenocarcinoma well differentiated, no loss of MMR. CT w IVC CAP without overt mets.
03/15 EUS notable for possible wall thickening at the GEJ, pancreatic parenchymal abnormalities in the pancreatic head and body.
normocytic anemia. No b12. started on folic acid for low nml folate. Check ferritin
unintentional weight loss, malnutrition, on TPN
hepatic steatosis
Subjective/Objective
Subjective
no new complaints
tolerating 'bites' due to early fullness
Vital Signs:
Vital Signs
Temp Pulse Resp BP Pulse Ox
99.7 F 83 18 113/65 97
03/16/24 14:57 03/16/24 14:57 03/16/24 14:57 03/16/24 14:57 03/16/24 14:57
Lab Results:
Laboratory Data
WBC 5.8 10^3/uL (4.8-10.8) 03/15/24 08:01
Hgb 9.4 g/dL (12.0-16.0) L 03/15/24 08:01
Plt Count 251 10^3/uL (130-400) 03/15/24 08:01
eGFR > 60.00 03/16/24 05:46
Physical Exam
HEENT: Moist Mucous Membranes; No Jaundice
Cardiology: S1 and S2
Pulmonary: Clear
GI: Soft
Extremities: Other (RUE PICC); No Edema
[2024-03-16 18:18] LABS: Glucose - Point of Care 116 mg/dl (70-99)
--- NOTE | 2024-03-16 21:01 | PTCARENOTE ---
Patient frustrated with lack of communication regarding next steps in care. Patient requested note be put in chart that she would like to explore the option of follow up care at [facility] instead of [facility].
[2024-03-16] MEDS: Parenteral Nutrition, Central 910 IV (22:55)
[2024-03-16 23:05] VITALS: BP 110/63
[2024-03-16 23:05] LABS: Glucose - Point of Care 109 mg/dl (70-99)
[2024-03-17 06:02] LABS: Glucose - Point of Care 127 mg/dl (70-99)
[2024-03-17] MEDS: NOVOLOG FLEXPEN-LOW RESISTANCE SC (06:09)
[2024-03-17 07:22] VITALS: BP 122/72
--- NOTE | 2024-03-17 07:48 | W.PN.ONC2 ---
Today's Communication / Plan
-
Await decisions regarding plans for esophageal endoscopic submucosal dissection.
Suspect she can be discharged and get opinions at a variety of tertiary care institutions if she desires.
Agree with GI that this typically would not be done urgently as an inpatient and that they can be coordinated as outpatient.
Impression
Impression
03/11/24 GE junction at 40cm nodule invasive adenocarcinoma well differentiated, no loss of MMR. CT w IVC CAP without overt mets.
03/15 EUS notable for possible wall thickening at the GEJ, pancreatic parenchymal abnormalities in the pancreatic head and body.
normocytic anemia. No b12. started on folic acid for low nml folate. Check ferritin
unintentional weight loss, malnutrition, on TPN
hepatic steatosis
Plan
Plan
agree with current staging assessment with EGD/EUS and consideration of next steps with imaging (PET) pending results of aforementioned interventions
Subjective/Objective
Chief Complaint
ACS Oncology
Subjective
No specific complaints. Patient feels that decisions about her transfer are not being discussed enough with her. Pt has been referred to Dr. Cody at [place] for consideration of ESD ( Esophageal endoscopic submucosal dissection).
Vital Signs:
Vital Signs
Temp Pulse Resp BP Pulse Ox
98.3 F 79 18 122/72 98
03/17/24 07:22 03/17/24 07:22 03/17/24 07:22 03/17/24 07:22 03/17/24 07:22
Lab Results:
Laboratory Data
WBC 5.8 10^3/uL (4.8-10.8) 03/15/24 08:01
Hgb 9.4 g/dL (12.0-16.0) L 03/15/24 08:01
Plt Count 251 10^3/uL (130-400) 03/15/24 08:01
eGFR > 60.00 03/16/24 05:46
Physical Exam
Cachectic, on TPN
HEENT: No Jaundice
--- NOTE | 2024-03-17 08:38 | W.PN.HOSP.TC ---
Today's Communication/Plan
-
Discharge today; outpatient follow up for ESD with Dr. Goldstein ([place]).
Assessment / Plan
Assessment / Plan
Discussion with patient regarding new diagnosis. She made it very clear that no one in her family should be made aware of updates to the patient's care or diagnosis of cancer until a care plan is developed and the patient says that it is okay to do
so.
1. Hypokalemia/hypomagnesemia
� 4.5 today; stable.
- Magnesium WNL
2. Anemia secondary to acute blood loss versus nutritional deficiency versus dilutional
- 8.5 today; stable in this range for 5 days.
- Review of previous records reveals hemoglobin 14-15 at past visits, most recently in May 2020.
- Patient consented for blood, type and cross.
- Iron 63, TIBC 182, folate 3.1, vitamin B12 694.
- Haptoglobin pending; reticulocyte count 1.9.
- Patient given 1 dose of p.o. folate 03/10.
3. GI Adenocarcinoma
- Endoscopy + pathology shows well-differentiated invasive adenocarcinoma.
- Endoscopy + pathology shows well-differentiated invasive adenocarcinoma.
- EUS: Wall thickening at [facility], pancreatic disease of unknown significance.
- Per GI, patient to get outpatient referral for ESD at [facility] (Dr Goldstein). Dr Cody accepted the patient and is in contact with GI concerning outpatient follow up.
- Colonoscopy could not be done this admission as pt could not tolerate oral prep; per GI will do colonoscopy outpatient where she can take SuPrep.
- Appreciate GI. Continue to follow.
4. Nausea/vomiting
-PRN Zofran; patient has declined recently. Given rx for PO Zofran on d/c.
-IV Protonix 40 mg daily. Given rx for PO Protonix on d/c.
- Pt now able to take a few bites without issue. TPN discontinued.
-Abdominal pain continues but improved; worse with retching, likely musculoskeletal; gastric obstruction series ordered yesterday; no evidence of bowel obstruction or free peritoneal air.
4. Protein calorie malnutrition
-Cachexia
-Nutrition consult per GI recs
-PT/OT
5. DVT PPx
- SCDs
Anticipated Discharge: Today
Subjective/Interval History
-
Date of Service: March 17, 2024
No acute complaints this morning. Pt is tolerating some oral intake. Notes eating rice pudding, 2 bites of egg without issue. Patient denies vomiting, CP, SOB, abdominal pain, diarrhea.
Objective Data
-
Labs:
Laboratory Results
03/17/24
07:50
WBC Pending
Hgb Pending
Hct Pending
Plt Count Pending
Sodium Pending
Potassium Pending
Chloride Pending
Carbon Dioxide Pending
BUN Pending
Creatinine Pending
Glucose Pending
Calcium Pending
Total Bilirubin Pending
AST Pending
ALT Pending
Alkaline Phosphatase Pending
Vital Signs:
Vital Signs
Temp Pulse Resp BP Pulse Ox
98.3 F 79 18 122/72 98
03/17/24 07:22 03/17/24 07:22 03/17/24 07:22 03/17/24 07:22 03/17/24 07:22
I&O
03/16/24 03/17/24 03/18/24
06:59 06:59 06:59
Intake Total 360 / 360 1380 / 1380
Balance 360 / 360 1380 / 1380
Review of Systems
-
History Source: Patient
Constitutional: Reports No Symptoms
Respiratory: Reports No Symptoms
Cardiac: Reports No Symptoms
Abdomen/GI: Reports No Symptoms
Neuro: Reports No Symptoms
Physical Exam
-
General: No Apparent Distress, Comfortable and Cachectic
HEENT: Normocephalic and Atraumatic
Respiratory: Clear to Auscultation
Cardiac: Regular Rhythm and S1/S2
GI: Soft and Nontender
Musculoskeletal: No Edema
Skin: Warm, Dry and Other (no tenting)
Neuro: Awake and Alert
Psych: Calm
Data Reviewed
-
Old Records: Reviewed
[2024-03-17] MEDS: NSS (PRESERVATIVE FREE) 10 ML IV (09:00)
[2024-03-17] MEDS: FOLVITE 0.5 MG PO (09:00)
[2024-03-17] MEDS: PROTONIX IV 40 MG IV (09:00)
--- NOTE | 2024-03-17 09:50 | W.PN.UPDATE ---
Update Note
Progress Note Update
I saw and evaluated the patient independently. I reviewed the resident�s note and agree with findings and plan as documented by Dr. Pope.
No new complaints. Has been tolerating some oral intake. No vomiting since I saw her yesterday.
Gen: remains NAD, AAOx3, appears chronically ill, cachectic, malnourished.
Eyes: EOMI, PERRLA, no scleral icterus.
Neck: supple.
CV: continues to remain RRR, +S1/S2, no m/r/g.
Resp: continues to remain CTAB, no rales, wheezes, or rhonchi.
Abd: +BS, soft, NT to light palpation, ND
Skin: No rashes.
Neuro: CN 2-12 intact, non-focal.
Psych: Normal mood and affect.
CT Head: No acute intracranial abnormality noted.
CT C/A/P: No significant acute abnormality identified in the chest, abdomen or pelvis
EUS 03/15/24: - Nodular, ulcerated mucosa (from recent biopsy) in
the GEJ at 40 cm from the incisors.
- No gross lesions in the entire stomach.
- Normal duodenal bulb, first portion of the duodenum
and second portion of the duodenum.
- A possible wall thickening was seen in the
gastroesophageal junction. The thickening appeared to
primarily be within the luminal interface/superficial
mucosa (Layer 1) and deep mucosa (Layer 2). The
submucosal layer appeared intact.
- Pancreatic parenchymal abnormalities consisting of
hyperechoic strands and hyperechoic foci were noted in
the pancreatic head and pancreatic body.
- There was no sign of significant pathology in the
common bile duct.
- No specimens collected.
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
-found on EGD
-Onc following
-EUS above, notable for possible wall thickening at the GEJ, pancreatic parenchymal abnormalities in the pancreatic head and body.
-Patient has been referred to Dr. Goldstein at [place] for ESD. Pt states she would rather follow-up at [facility]
-currently on TPN. No vomiting since yesterday and patient is able to eat food (functioning GI tract). As per RN pt ate 70% of breakfast. Will stop TPN at this time as patient is not vomiting and risks of TPN (including but not limited to
bacterial and/or fungal infection) outweigh benefit. This was explained to the patient and her daughter.
Severe hypokalemia:
-due to hypomagnesemia due to recurrent vomiting with severe protein calorie malnutrition
-K and Mg repleted
Anemia:
-unknown chronicity but likely due to chronic disease
-denies any blood loss
-Hb drop was likely dilutional
-Heme-Onc following
-retic ct, B12 normal
-cont folate for low normal folate
Other problems:
Syncopal episodes/palpitations due to hypomagnesemia/hypokalemia: PT/OT
Constipation
h/o IBS
Severe protein calorie malnutrition
Depression
h/o cervical cancer
FULL/SCDs
Medically cleared for discharge. The case has been discussed via group [employer] message which included GI, CM, RN.
Total time spent on d/c = 45 min. This included today's physical exam, progress note, review of laboratory and diagnostic data, preparation of discharge documents and prescriptions, and discussions about the pt's hospital course and discharge plan
with the patient and other medical office technology instructor involved in the patient's care.
[2024-03-17 09:57] LABS: Hematocrit 24.6 % (37.0-47.0); Hemoglobin 8.5 g/dL (12.0-16.0); Mean Corp Hgb Conc. 34.6 g/dL (33.0-37.0); Mean Corpuscular Hgb 32.2 pg (27.0-31.0); Mean Corpuscular Volume 93.2 fL (81.0-99.0); Mean Platelet Volume 9.9 fL (7.4-10.4); Platelet Count 244 10^3/uL (130-400); Red Blood Cell Count 2.64 10^6/uL (4.20-5.40); Red Cell Dist. Width 17.5 % (11.5-14.5); White Blood Cell Count 7.3 10^3/uL (4.8-10.8)
[2024-03-17 10:49] LABS: ALT (SGPT) 11 U/L (0-35); AST (SGOT) 26 U/L (14-36); Albumin 2.8 g/dl (3.5-5.0); Alkaline Phosphatase 44 U/L (38-126); Blood Urea Nitrogen 17 mg/dl (7-17); Calcium 8.7 mg/dl (8.4-10.2); Carbon Dioxide 25 mmol/L (22-30); Chloride 104 mmol/L (98-107); Estimated Creatinine Clearance 62 ml/min; Glucose 118 mg/dl (70-99); Magnesium 1.6 mg/dl (1.6-2.3); Potassium 4.5 mmol/L (3.5-5.1); Sodium 137 mmol/L (135-145); Total Bilirubin 0.2 mg/dl (0.2-1.3); Total Protein 5.2 g/dl (6.3-8.2); Triglycerides 121 mg/dl (10-149); eGFR > 60.00
--- NOTE | 2024-03-17 11:04 | CM ---
Chart reviewed and physician team met with patient to review updates and discharge plan, per physician notes plan will be to send patient's records and have patient evaluated and followed up at [place] with Dr. Goldstein. fiscal manager reviewed with
patient and her daughter insurance issues and the need to follow up with [facility], patient reports that she understands that she needs to provide bank statements to [facility].
Plan; Home today and follow up with [place] as outpatient.
[2024-03-17 11:47] LABS: Glucose - Point of Care 86 mg/dl (70-99)
[2024-03-17 12:07] VITALS: BP 103/63
--- NOTE | 2024-03-17 15:07 | W.DCSUMMARY ---
Addendum entered and electronically signed by Albert Salguero MD 03/18/24 07:52:
Read, reviewed, and agree. See same day progress note for additional details.
Original Note:
Discharge Summary
Discharge Data
Date of Admission: 03/09/24
Date of Discharge: 03/17/24
-
Pending Results: No
Hospital Course
Constance Avendaño is a 68-year-old female with a past medical history of hypertension remote history of cervical cancer who presented to the emergency department at [facility] on March 09, 2024 for the evaluation of generalized weakness. The
patient noted general decline in health over the past 10 months prior to arrival. Patient complained of decreased appetite, nausea, and dry heaving. She stated that she was unable to tolerate p.o. intake and lost about 18 pounds over the preceding
4 to 6 weeks. The patient also endorsed palpitations, vague chest pains, and syncopal episodes.
In the emergency department the patient was cachectic and ill-appearing on exam. However the rest of her exam was benign. On laboratory studies, electrolyte abnormalities were seen, including a potassium of 2.9, and a magnesium of 1.1. Patient
was also mildly anemic with a hemoglobin of 10.2. EKG showed a normal sinus rhythm. CT scans of the head, chest, abdomen, and pelvis did not show any acute abnormalities. The patient was given potassium and magnesium repletion supplements,
started on intravenous fluids, and admitted to [facility] on telemetry that evening.
Upon admission, serial metabolic panels were obtained to follow the patient's electrolytes. Repletion was given as needed for potassium values below 4 and magnesium values below 2. It was suspected that the patient had severe hypokalemia secondary
to hypomagnesemia which was secondary to recurrent vomiting and severe protein calorie malnutrition. This was suspected to be due to upper GI pathology. Gastroenterology was consulted at this time and started the patient on empiric intravenous
Protonix, and planned to perform an EGD on March 11, 2024, for further evaluation given her symptoms. EGD revealed a mucosal abnormality in the esophagus which was biopsied and sent to pathology. The patient continued to have nausea with eating,
and was unable to keep much down other than water. Because of this, a concurrent study which was felt to be medically necessary, colonoscopy, was deferred until the patient could do it outpatient. Since the patient was unable to tolerate oral
prep, and thus decision was made to do it on an outpatient basis where she could use Suprep. Total parenteral nutrition was started on 03/14/2024.
In the interim, biopsy of the distal esophageal tissue revealed a well-differentiated invasive adenocarcinoma. Plans were made to perform an endoscopy with ultrasound in order to assess the lesion. The decision was made to defer the resection of
this lesion to a tertiary care center. The patient will be undergoing endoscopy with submucosal resection with Dr. Goldstein at the [facility]. The patient was instructed to follow-up with Dr. Goldstein, the gastrointestinal
team at [facility], the oncology team at [place], as well as her primary care provider. As these plans were discussed and confirmed, and the patient exhibited inability to eat small amounts of food without nausea or vomiting, and her
laboratory studies remained stable, the patient was discharged to home from [facility] March 17, 2024.
Discharge Plan
-
Patient Disposition: Home (Routine Discharge)
Discharge Diagnosis/Procedures: Invasive Adenocarcinoma of the Gastrointestinal Tract
Electrolyte Abnormality
Condition: Fair
Diet: As tolerated
Activity: As tolerated
Referrals:
Sneha Ann CRNP [Family Provider] - in less than 1 week
Radha Lamb PA-C [Specified Professional Personl] - 04/09/24 11:30 am
Prescriptions:
New
pantoprazole [Protonix] 40 mg tablet,delayed release (DR/EC)
40 mg PO DAILY PRN (Reason: Reflux) Qty: 30 0RF
ondansetron 4 mg tablet,disintegrating
4 mg PO Q8H PRN (Reason: Nausea) Qty: 30 0RF
Discharge Orders:
Discharge Patient (As Directed); Ordered 03/17/24
Ordered By: Tadeo Pope
Discharge Date and Time
Discharge Date/Time: 03/17/24 12:35
Print Language: MARTINIQUAIS
== END 2024-03-17 12:35 | disposition home or self-care (01) | DRG 374 ==
LOC: 4 WEST ACU 21:21
PROVIDERS: Internal Medicine; Student in an Organized Health Care Education/Training Program; ADMITTING PHYSICIAN Hospitalist; ATTENDING PHYSICIAN Internal Medicine; CONSULT PHYSICIAN Internal Medicine Hematology & Oncology; CONSULT PHYSICIAN Student in an Organized Health Care Education/Training Program; EMERGENCY PHYSICIAN Emergency Medicine; FAMILY PHYSICIAN Nurse Practitioner Family
PROC: 0DB98ZX Excision of Duodenum, Via Natural or Artificial Opening Endoscopic, Diagnostic (ICD-10-PCS; 2024-03-11)
PROC: 0DB48ZX Excision of Esophagogastric Junction, Via Natural or Artificial Opening Endoscopic, Diagnostic (ICD-10-PCS; 2024-03-11)
DX: C15.9 Malignant neoplasm of esophagus, unspecified (principal); E43 Unspecified severe protein-calorie malnutrition; Z68.1 Body mass index [BMI] 19.9 or less, adult; D62 Acute posthemorrhagic anemia; R64 Cachexia; Z87.891 Personal history of nicotine dependence; E87.6 Hypokalemia; E83.42 Hypomagnesemia; R62.7 Adult failure to thrive; K44.9 Diaphragmatic hernia without obstruction or gangrene; K31.89 Other diseases of stomach and duodenum; K22.2 Esophageal obstruction; K22.89 Other specified disease of esophagus
CPT/HCPCS: 88305; 70450; 71045; 71260; 74022; 74177; 80048; 80053; 82248; 82330; 82607; 82728; 82746; 82962; 83010; 83036; 83540; 83550; 83690; 83735; 84100; 84443; 84478; 84484; 85014; 85018; 85025; 85027; 85045; 88342; 88360; 93005; 96361; 96374; 96375; 99285; Q9967

== ENCOUNTER → 2024-08-31 10:44 | Outpatient (REF) | payer MEDICARE, SELFPAY | LOC: RAD 10:44 | PROVIDERS: ATTENDING PHYSICIAN Hospitalist | DX: K94.20 Gastrostomy complication, unspecified (principal) | CPT/HCPCS: 76705 ==

== ENCOUNTER → 2024-09-23 10:58 | Outpatient (REF) | payer MEDICARE, SELFPAY | LOC: RAD 10:58 | PROVIDERS: ATTENDING PHYSICIAN Hospitalist | DX: K94.20 Gastrostomy complication, unspecified (principal) | CPT/HCPCS: 74177; Q9967 ==

== ENCOUNTER 2024-09-26 10:17 | Emergency (ER) | payer MEDICARE, SELFPAY ==
[2024-09-26] VITALS (7 sets, daily range): BP systolic 123–170; BP diastolic 87–99; PULSE 81–110
--- NOTE | 2024-09-26 12:04 | ED.GENMED ---
History of Present Illness
General
Chief Complaint: Musculo-Skeletal Complaint
Source: patient
Exam Limitations: none
Time Seen by Provider: 09/26/24 11:07
Nursing documentation reviewed up to this point in time: agreed with
History of Present Illness
History of Present Illness:
69-year-old female presents emergency department after falling last night injuring her wrist. She passed out, and states she passes out frequently. She gets lightheaded when she stands up.
Past History
Past History
ED Past Medical History: None and Other (Kidney stone, hypertension, depression)
ED Past Surgical History: None
Social History
Tobacco: Former smoker
Alcohol: Occasional
Living: with family
Family History
Family History: Negative Diabetes, Hypertension or CAD
Review of Systems
Review of Systems
Allergies reviewed?: Yes
All Other Systems: Not applicable
Constitutional: Reports no symptoms
EENT: Reports no symptoms
Respiratory: Reports no symptoms
Cardiac: Reports syncope
ABD/GI: Reports no symptoms
: Reports no symptoms
Musculoskeletal: Reports joint pain
Skin: Reports no symptoms
Neurological: Reports no symptoms
Endocrine: Reports no symptoms
Hematologic/Lymphatic: Reports no symptoms
Psychiatric: Reports no symptoms
Phy Exam
Physical Exam
Physical Exam:
Physical Exam
General: no apparent distress, not acutely ill
Neck: supple. no meningeal signs. normal posterior pharynx
Heart: s1/s2 regular rate and rhythm, no murmur. equal radial
pulses.
HEENT: Pupils equal round reactive to light, EOMI
Lungs: no acute respiratory distress. clear bilaterally
Abdomen: normal bowel sounds. not tender. no CVAT
Neuro: alert and oriented. no focal neurological deficits cranial nerves II through XII intact
Skin: no rash
Psychiatric: well kept. interactive and cooperative
Extremities: no edema. no calf tenderness. negative homans. good distal pulses , Left wrist mildly tender to palpation
Course
Orders/Labs/Results
Orders:
Orders
09/26/24 10:28
EKG [Electrocardiogram (*1)] Urgent
Reason for Study: Syncope
EKG- Treatment ONCE
Wrist, Left 3 Views CR [CR Wrist - Left Min 3 Views] Urgent
Comment:
Reason For Exam: injury
09/26/24 12:01
IV Insert/Care/Rem.- Treatment PRN
0.9% Sodium Chloride 1000 ml [Nss] 1,000 ml IV BOLUS
09/26/24 12:08
Acetaminophen [Tylenol] 650 mg .ROUTE .STK-MED ONE
09/26/24 12:18
Acetaminophen [Tylenol] 650 mg PO NOW STA
09/26/24 12:21
Complete Blood Count/With Diff Urgent
Comprehensive Metabolic Panel Urgent
Magnesium Urgent
Troponin I Urgent
09/26/24 15:18
Magnesium Sulfate 1 G/D5w [Magnesium Sulfate] 1 gm in 100 ml IV NOW
Abnormal Lab Results
09/26/24
12:21
RBC 3.57 L 10^6/uL
(4.20-5.40)
Hct 36.7 L %
(37.0-47.0)
MCV 102.8 H fL
(81.0-99.0)
MCH 35.9 H pg
(27.0-31.0)
BUN 4 L mg/dl
(7-17)
Creatinine 0.5 L mg/dL
(0.6-1.0)
Magnesium 1.3 L mg/dl
(1.6-2.3)
AST 104 H U/L
(14-36)
09/26/24 12:21
09/26/24 12:21
Vital Signs
Initial and Last Documented VS:
Initial Vital Signs
Temp Pulse Resp BP Pulse Ox
98.5 F 99 16 137/87 98
09/26/24 10:25 09/26/24 10:25 09/26/24 10:25 09/26/24 10:25 09/26/24 10:25
Last Documented Vital Signs
Temp Pulse Resp BP Pulse Ox
98.5 F 80 17 169/92 95
09/26/24 10:25 09/26/24 16:16 09/26/24 16:16 09/26/24 16:00 09/26/24 16:00
MDM/Problems Addressed
Differential Diagnosis Includes:
Dysrhythmia, hypovolemia, wrist fracture
MDM/Problems Addressed:
69-year-old female with syncope episode, left wrist sprain. No signs of fracture. No signs of head injury. Patient feels otherwise well at this time. Offered admission, patient declines.
Chronic conditions affecting care: HTN
*Radiology
Radiology exam reviewed: radiology read reviewed (Left wrist x-ray no fracture)
*Pulse Oximetry
Patient hypoxic: no
*EKG
Interpreted by ED Provider?: Yes
EKG Intrepretation Date: 09/26/24
EKG Intrepretation Time: 10:32
Interpretation: normal
Comparison EKG: changes noted
Heart Rate: 87
Rate: normal
Rhythm: sinus
[place]: normal axis
Interval: normal interval
QRS Pattern: normal QRS
Ischemia: no ischemia
*Supervisor Record Press Interpretation
Rate: normal
Interpretation: normal
Heart Rate: 88
Rhythm: sinus
*Critical Care Note
Total Time (30-74mins, 75-104mins- exclusive of procedures): Not Applicable
Data Reviewed
Review of Other/Old Records Reveals: Labs (Magnesium 1.6 on 03/17/2024)
Source: records
Patient Management
Social determinants of health affecting care: Living situation and Strong social support
Escalation/DeEscalation of care consider admission/obs:
Admit not indicated
ED Attending Note
-
Portions of this chart may have been created with voice recognition software.� Occasional wrong word or��sound alike� substitutions may have occurred due to the inherent limitations of voice recognition software.
Discharge Plan
Departure
Patient Disposition: Home (Routine Discharge)
Date of Disposition: 09/26/24
Time of Disposition: 15:18
Patient with high blood pressure during this ER visit?: Yes
Condition: Good
Discharge Problem:
Syncope, Hypomagnesemia, Left wrist sprain
Instructions: Syncope (fainting), Wrist Sprain ED, Hypomagnesemia
Prescriptions:
No Action
pantoprazole [Protonix] 40 mg tablet,delayed release (DR/EC)
40 mg PO DAILY PRN (Reason: Reflux) Qty: 30 0RF
ondansetron 4 mg tablet,disintegrating
4 mg PO Q8H PRN (Reason: Nausea) Qty: 30 0RF
Referrals:
Kierra Figueredo MD [Family Provider] - Call in 1-3 days for appt
Interventions
Interventions:
*Risk Screen - Suicide Last Done: 09/26/24 10:25
*General Assessment Last Done: 09/26/24 11:36
*Neglect/Abuse Screening Last Done: 09/26/24 10:25
*ED- Fall Risk Assessment Last Done: 09/26/24 11:36
*ED COVID-19 Vaccine History Last Done: 09/26/24 11:36
*Nursing Disposition Last Done: 09/26/24 16:43
ED-Musculoskeletal Assessment Last Done: 09/26/24 11:36
Discharge Date and Time
Discharge Date/Time: 09/26/24 16:43
Print Language: [place]
[2024-09-26] MEDS: NSS 1000 IV (12:17)
[2024-09-26] MEDS: TYLENOL 650 MG PO (12:18)
[2024-09-26 12:26] LABS: % Basophils 0.8 % (0-2); % Eosinophils 0.7 % (0-6); % Immature Granulocytes 0.4 % (0-0.5); % Lymphocytes 24.5 % (20.5-51.1); % Neutrophils 66.6 % (42.2-75.2); Absolute Basophils 0.1 10^3/uL (0-0.2); Absolute Eosinophils 0.1 10^3/uL (0-0.7); Absolute Lymphocytes 1.8 10^3/uL (1.2-3.4); Absolute Monocytes 0.5 10^3/uL (0.1-0.6); Absolute Neutrophils 4.9 10^3/uL (1.4-6.5); Hematocrit 36.7 % (37.0-47.0); Hemoglobin 12.8 g/dL (12.0-16.0); Mean Corp Hgb Conc. 34.9 g/dL (33.0-37.0); Mean Corpuscular Hgb 35.9 pg (27.0-31.0); Mean Corpuscular Volume 102.8 fL (81.0-99.0); Mean Platelet Volume 9.6 fL (7.4-10.4); Nucleated Red Blood Cells % 0 %; Platelet Count 244 10^3/uL (130-400); Red Blood Cell Count 3.57 10^6/uL (4.20-5.40); Red Cell Dist. Width 13.3 % (11.5-14.5); White Blood Cell Count 7.3 10^3/uL (4.8-10.8)
[2024-09-26 12:39] LABS: ALT (SGPT) 27 U/L (0-35); AST (SGOT) 104 U/L (14-36); Albumin 4.1 g/dl (3.5-5.0); Alkaline Phosphatase 66 U/L (38-126); Blood Urea Nitrogen 4 mg/dl (7-17); Calcium 9.5 mg/dl (8.4-10.2); Carbon Dioxide 30 mmol/L (22-30); Chloride 106 mmol/L (98-107); Glucose 86 mg/dl (70-99); Magnesium 1.3 mg/dl (1.6-2.3); Potassium 3.8 mmol/L (3.5-5.1); Sodium 141 mmol/L (135-145); Total Bilirubin 0.9 mg/dl (0.2-1.3); eGFR > 60.00
[2024-09-26 12:51] LABS: Troponin I 0.016 ng/ml
[2024-09-26] MEDS: MAGNESIUM SULFATE 100 IV (15:23)
== END 2024-09-26 16:43 | disposition home or self-care (01) ==
LOC: EMR 10:17
PROVIDERS: EMERGENCY PHYSICIAN Emergency Medicine; FAMILY PHYSICIAN Hospitalist
DX: R55 Syncope and collapse (principal); E83.42 Hypomagnesemia; S63.502A Unspecified sprain of left wrist, initial encounter; W19.XXXA Unspecified fall, initial encounter; I10 Essential (primary) hypertension; Z87.891 Personal history of nicotine dependence
CPT/HCPCS: 99285; 96365; 96361; 73110; 80053; 83735; 84484; 85025; 93005

== ENCOUNTER 2025-01-06 17:32 | Inpatient (IN) | payer OTHER, SELFPAY ==
[2025-01-06] VITALS (12 sets, daily range): BP systolic 110–136; BP diastolic 70–88; PULSE 89–110; BMI 15.8; BMI 12.9
[2025-01-06 11:58] LABS: Hematocrit 35.6 % (37.0-47.0); Hemoglobin 12.4 g/dL (12.0-16.0); Mean Corp Hgb Conc. 34.8 g/dL (33.0-37.0); Mean Corpuscular Volume 94.9 fL (81.0-99.0); Nucleated Red Blood Cells % 0.3 %; Platelet Count 319 10^3/uL (130-400); Red Cell Dist. Width 13.3 % (11.5-14.5)
[2025-01-06 12:16] LABS: ALT (SGPT) 11 U/L (0-35); AST (SGOT) 31 U/L (14-36); Albumin 4.6 g/dl (3.5-5.0); Alkaline Phosphatase 54 U/L (38-126); Blood Urea Nitrogen 13 mg/dl (7-17); Calcium 10.0 mg/dl (8.4-10.2); Carbon Dioxide 19 mmol/L (22-30); Chloride 94 mmol/L (98-107); Estimated Creatinine Clearance 57 ml/min; Glucose 82 mg/dl (70-99); Potassium 3.4 mmol/L (3.5-5.1); Sodium 135 mmol/L (135-145); Total Protein 7.7 g/dl (6.3-8.2); eGFR > 60.00
[2025-01-06 12:22] LABS: Troponin I < 0.012 ng/ml
[2025-01-06] MEDS: NSS 500 IV ×2 (12:44→13:55)
[2025-01-06 13:09] LABS: D-Dimer 0.41 ug/mlFEU (0.00-0.50)
[2025-01-06] MEDS: KCL 160 MEQ IV (13:16)
[2025-01-06 13:36] LABS: Magnesium 1.0 mg/dl (1.6-2.3)
[2025-01-06] MEDS: ZOFRAN 4 MG IV (13:55)
--- NOTE | 2025-01-06 14:10 | ED.GENMED ---
History of Present Illness
General
Chief Complaint: Cardiac Symptoms
Source: patient
Exam Limitations: none
Time Seen by Provider: 01/06/25 11:41
Nursing documentation reviewed up to this point in time: agreed with
History of Present Illness
History of Present Illness:
Patient presents to ED secondary to persistent difficulty with eating, secondary to immediate vomiting episodes after eating over the past 5 weeks. In addition, patient is experiencing severe shortness of breath with palpitations, even with
distance ambulation at home. Patient has passed out on multiple occasions. Denies headache. Denies neck pain. Denies chest pain. Denies diarrhea. Denies abdominal pain. Denies leg pain or swelling. Denies back pain. Denies recent travel or
surgery. Denies recent illness. Denies recent change in medications or diet. Patient's recent medical history is significant for esophageal tumor, which was surgically removed in [facility] in April 2024. Patient has
follow-up endoscopy in August 2024, which did not reveal any abnormal findings. Patient has another endoscopy scheduled in February. Denies difficulty with swallowing. However, patient states that as soon as she eats, she feels constant nausea
sensation with vomiting. Patient reports weight loss. Denies family history of blood clots. Patient does not take any blood thinning medications.
Past History
Past History
ED Past Medical History: None and Other (Kidney stone, hypertension, depression)
ED Past Surgical History: None
Social History
Tobacco: Former smoker
Alcohol: Occasional
Living: with family
Family History
Family History: Negative Diabetes, Hypertension or CAD
Review of Systems
Review of Systems
Allergies reviewed?: Yes
All Other Systems: ROS reviewed and negative except as documented in HPI and ROS
Constitutional: Reports no symptoms
Respiratory: Reports trouble breathing
Cardiac: Reports palpitations and syncope; Denies chest pain or diaphoresis
ABD/GI: Reports nausea and vomiting; Denies abdominal pain or diarrhea
Musculoskeletal: Reports no symptoms
Skin: Reports no symptoms
Neurological: Reports dizzy and weakness
Phy Exam
Physical Exam
Physical Exam:
Physical Exam
General: mild distress, not acutely ill. afebrile. thin appearing
Head: nc/at. eomi
Neck: supple. normal range of motion.
Heart: s1/s2 regular rate and rhythm
Lungs: no acute respiratory distress. clear bilaterally
Abdomen: normal bowel sounds. not tender.
Neuro: alert and oriented x 3. no focal neurological deficits
Skin: no rash
Psychiatric: well kept. interactive and cooperative
Extremities: no edema. no calf tenderness.
Course
Orders/Labs/Results
Orders:
Orders
01/06/25 11:12
EKG [Electrocardiogram (*1)] Urgent
Reason for Study: Chest Pain
EKG- Treatment ONCE
01/06/25 11:47
Complete Blood Count/With Diff Urgent
Comprehensive Metabolic Panel Urgent
Magnesium Urgent
Phosphorus Urgent
Comment: ADD ON
TSH Reflex To Free T4 Urgent
Comment: ADD ON
Troponin I Urgent
01/06/25 12:18
Add On- LAB Urgent
Tests Added?: magnesium, TSH to reflex free T4
Orthostatic VS- Treatment ONCE
01/06/25 12:19
0.9% Sodium Chloride 500 ml [Nss] 500 ml IV BOLUS
01/06/25 12:25
Potassium Chloride [KCl] 40 meq PO NOW STA
01/06/25 12:44
D-Dimer Urgent
01/06/25 12:48
Potassium Chloride [KCl] 20 meq 0.9% Sodium Chloride 150 ml [Nss] 150 ml IV NOW
01/06/25 13:29
CT Chest PE Study Urgent
Comment:
Reason For Exam: cp/sob w syncope
01/06/25 13:46
0.9% Sodium Chloride 500 ml [Nss] 500 ml IV BOLUS
Ondansetron Injectable [Zofran] 4 mg IV NOW STA
01/06/25 14:00
Magnesium Sulfate 1 grams 0.9% Sodium Chloride 100 ml [Nss] 100 ml IV NOW
01/06/25 14:12
CT Head W/o Iv Contrast Urgent
Comment:
Reason For Exam: syncope with head trauma
01/06/25 16:43
Add On- LAB Urgent
Tests Added?: phosphorous
Magnesium Sulfate 2 Gram/50 ml [Magnesium Sulfate] 2 gram in 50 ml IV NOW
01/06/25 16:[address] Non Medication Order As Directed
Physician Order: please TT evening provider 11 PM magnesium results
01/06/25 17:10
Admit/Transfer Patient As Directed
Co-Sign Provider:
Level of Care: Inpatient admission
Assign to:: Telemetry
Physician / Group: Polina Vasquez
Diagnosis: anorexia/vomiting, hypomagnesemia, syncope
Reason for Telemetry: Syncope
Date to Stop Telemetry: 01/08/25
Time to Stop Telemetry: 11:00
Reason for Hospitalization: anorexia/vomiting, hypomagnesemia, syncope
Expected length of stay greater than two midnights?: Yes
ELOS- Estimated Length of Stay in days: 3
I certify the patient meets the requirements for IP care: Yes
PRN Pain Medication Management As Directed
May give lesser potent ordered pain med per pt: Yes
preference::
Protocol:: Medication orders for pain may be administered in a
manner that supports deferring to patient preference
when the pt is:
- Requesting an ordered lesser potent pain medication.
Least to most potent pain medications are defined
as: acetaminophen < NSAID < tramadol < opioids
(morphine, oxycodone, hydromorphone).
- Requesting a lesser dose of the same medication IF
ORDERED.
- Requesting a less intrusive route of administration
if both routes are prescribed by the provider (PO <
IV).
01/06/25 17:13
Code Status As Directed
Resuscitation Status: Full Code
01/06/25 17:15
0.9% Sodium Chloride [Nss (Preservative Free)] 10 ml IV NOW STA
Pantoprazole [Protonix IV] 40 mg IV NOW STA
Thiamine Injection 200 mg IV NOW STA
01/06/25 23:00
Magnesium Routine
Potassium Routine
Troponin I Q6H
01/07/25 05:00
Troponin I Q6H
01/08/25 11:00
DC Protocol for Telemetry ONCE
Abnormal Lab Results
01/06/25
11:47
RBC 3.75 L 10^6/uL
(4.20-5.40)
Hct 35.6 L %
(37.0-47.0)
MCH 33.1 H pg
(27.0-31.0)
Potassium 3.4 L mmol/L
(3.5-5.1)
Chloride 94 L mmol/L
(98-107)
Carbon Dioxide 19 L mmol/L
(22-30)
Creatinine 0.5 L mg/dL
(0.6-1.0)
Magnesium 1.0 L mg/dl
(1.6-2.3)
01/06/25 11:47
01/06/25 11:47
Vital Signs
Initial and Last Documented VS:
Initial Vital Signs
Temp Pulse Resp BP Pulse Ox
98.0 F 122 18 111/83 98
01/06/25 11:14 01/06/25 11:14 01/06/25 11:14 01/06/25 11:14 01/06/25 11:14
Last Documented Vital Signs
Temp Pulse Resp BP Pulse Ox
98.0 F 87 15 133/82 96
01/06/25 11:14 01/06/25 16:45 01/06/25 16:45 01/06/25 16:17 01/06/25 16:45
MDM/Problems Addressed
MDM/Problems Addressed:
Patient with a brief episode of syncope noted in ED during evaluation for orthostatic vital signs, lasting approximately 5 seconds with spontaneous rastafarian of mental status. No postictal confusion noted. Patient's presenting symptoms, likely
secondary to significant dehydration, triggering vagal response, as patient has not been able to eat anything orally for quite some time. As such, CT head ordered as well as CT angiogram of the chest.
CT report reviewed and discussed with patient. Patient will be admitted for further evaluation and treatment, including GI as well as cardiology consultation.
*Pulse Oximetry
SaO2: 98
Oxygen Mode of Delivery: Room air
Patient hypoxic: no
*EKG
Interpreted by ED Provider?: Yes
EKG Intrepretation Date: 01/06/25
Heart Rate: 115
Rate: tachycardiac
Rhythm: sinus
[place]: normal axis
Interval: normal interval
Ischemia: non-specific ST changes
*Critical Care Note
Total Time (30-74mins, 75-104mins- exclusive of procedures): Not Applicable
ED Attending Note
-
Portions of this chart may have been created with voice recognition software.� Occasional wrong word or��sound alike� substitutions may have occurred due to the inherent limitations of voice recognition software.
Discharge Plan
Departure
Patient Disposition: Admit
Date of Disposition: 01/06/25
Time of Disposition: 15:53
Admit to: Telemetry
Presentation/result/management discussed w/ accepting MD/DO: Hospitalist
Discharge Problem:
Syncope, Dehydration, Exertional dyspnea
Interventions
Interventions:
*Risk Screen - Suicide Last Done: 01/06/25 11:14
*General Assessment Last Done: 01/06/25 11:46
*Neglect/Abuse Screening Last Done: 01/06/25 11:46
*ED- Fall Risk Assessment Last Done: 01/06/25 11:46
ED- Pulmonary Assessment Last Done: 01/06/25 11:54
ED- Cardiac Assessment Last Done: 01/06/25 11:54
[2025-01-06] MEDS: MAGNESIUM SULFATE 102 GRAMS IV (14:43)
--- NOTE | 2025-01-06 16:37 | HPS.HSE ---
Family Physician
-
Family Physician: Kierra Figueredo MD
Chief Complaint
-
syncope and vomiting
History of Present Illness
Ms. Constance Avendaño is a 69 yo woman with hx essential HTN, remote history cervical cancer, esophageal adenocarcinoma s/p surgical removal at [facility] 04/27 presents to the ER with difficulty keeping food down over the past 5 weeks.
Patient was admitted March 2024 for similar symptoms where she was found to have invasive adenocarcinoma of distal esophageal tissue and she was referred to [facility], now status post surgical removal. She had a follow up EGD in August and is due for a
second in February.
Patient states that for past 5 weeks any time she eats she vomits. She has tried to keep small bites or sips down. She has passed out when standing. She is now supervised by her family when she goes to the bathroom. When she walks more than 10
steps she reports a heavy feeling in chest followed by vomiting. + palpitations. She has pain in lower abdomen preceding vomiting.
No LE swelling. No rash. No new medications.
Medical History
Past Medical History
Past Medical History: Reports Other (esophageal adenocarcinoma s/p resection at [facility] 04/27; IBS, hypertension, depression, kidney stone, cervical cancer)
Past Surgical History: Reports Gynocological and Other (see above )
Social History
Tobacco: Non-smoker
Alcohol: None
Drug: None
Family History
Family History: Not pertinent
Allergies / Home Medications
Allergies reflects when Allergies were last updated in [employer].
Home Medications with original date entered in [employer]
Allergy/Medication List:
Allergies
Allergy/AdvReac Type Severity Reaction Status Date / Time
cefazolin sodium (From [facility]) Allergy Anaphylaxis Verified 01/06/25 11:16
morphine Allergy Swelling Verified 01/06/25 11:16
Home Medications
calcium carbonate 600 mg PO DAILY Supplement 01/06/25
lansoprazole 30 mg capsule,delayed release 30 mg PO BID Gastrointestinal Issue 01/06/25
multivitamin 1 tab PO DAILY Supplement 01/06/25
thiamine HCl (vitamin B1) 100 mg tablet 100 mg PO DAILY 01/06/25
Review of Systems
-
History Source: Patient
A 12 point ROS was completed and negative except as noted: Yes
Physical Exam
Vital Signs
Vital Signs
Temp Pulse Resp BP Pulse Ox
98.0 F 91 17 136/81 98
01/06/25 11:14 01/06/25 15:57 01/06/25 15:57 01/06/25 14:00 01/06/25 14:12
Physical Exam
General: Other (frail and cachectic appearing)
HEENT: PERRLA
Respiratory: Clear; No Wheezes
Cardiac: S1/S2 and Regular Rhythm
GI: Soft, Non Tender and Non Distended
Musculoskeletal: No Edema
Skin: Warm and Dry; No Rash
Neuro: AO x 3
Psych: Calm
Laboratory Results
-
01/06/25 11:47
01/06/25 11:47
Laboratory Results
Total Bilirubin 1.0 mg/dl (0.2-1.3) 01/06/25 11:47
AST 31 U/L (14-36) 01/06/25 11:47
ALT 11 U/L (0-35) 01/06/25 11:47
Alkaline Phosphatase 54 U/L (38-126) 01/06/25 11:47
Troponin I < 0.012 ng/ml 01/06/25 11:47
Data Reviewed
-
Diagnostic Radiology: Report Reviewed by me
Lab Data: Labs Reviewed by me
Impression/Plan
-
Ms. Constance Avendaño is a 69 yo woman with hx essential HTN, remote history cervical cancer, esophageal adenocarcinoma s/p surgical removal at [facility] 04/27 presents to the ER with difficulty keeping food down over the past 5 weeks. She reports instances
of orthostatic syncope and is found to have severe hypomagnesemia.
Triage VS: T 98, P 122, RR 18, BP 110/83, SpO2 98%
LABS: WBC 7.2, Hg 12.4, PLT 319, Na 135, K+ 3.4, CO2 19, BUN 13, Cr 0.3, K+ 3.4, Mag 1.0, T. Bili 1, AST 31, ALT 11, Alk Phos 54, TSH 0.60
Troponin negative
EKG: sinus tachy @ 115; ST depression inferolateral leads
HEAD CT
IMPRESSION:
No evidence of acute intracranial abnormality.
CHEST CT
IMPRESSION: Examination is negative for pulmonary embolism.
There is no evidence for thoracic aortic dissection or aneurysm.
Coronary artery calcifications are present. Please correlate with symptoms of and risk factors for coronary artery disease, with further workup as clinically appropriate.
Changes of emphysema within the upper lungs.
Fatty infiltration of the liver.
MAR: IV Magnesium, NS 1L x 2, Potassium, IV Zofran
Syncope
-orthostatic syncope in setting of severe dehydration
-s/p 2L fluids, continue D5 LR
-trend Troponin
-monitor on telemetry
Palpitations
-suspect related to hypomagnesemia and severe dehydration
-trend Troponin as above, will obtain TTE
Anorexia with Vomiting
-similar to symptoms that led to diagnosis of invasive adenocarcinoma 03/28
-consult GI
-clears tonight, NPO after MN
-D5 LR
-IV Protonix BID
-IV Zofran PRN
Hypomagnesemia
-replete (add additional 2G now and repeat at 11 PM) Goal Mag > 2
Hypokalemia
-repleted in ER
-add on Phos
DVT PPx SCD
FULL CODE
76 minutes spent on patient care
[2025-01-06] MEDS: MAGNESIUM SULFATE 50 IV (17:36)
[2025-01-06] MEDS: THIAMINE INJECTION 200 MG IV (17:36)
[2025-01-06] MEDS: PROTONIX IV 40 MG IV (17:36)
[2025-01-06] MEDS: NSS (PRESERVATIVE FREE) 10 ML IV (17:37)
[2025-01-06] MEDS: D5LR 1000 IV (21:44)
--- NOTE | 2025-01-06 21:50 | PTCARENOTE ---
Patient arrived from ED to [facility] into bed 332. Pt AAOx3, oriented to room. Admitted for anorexia, vomiting, hypomagnesemia. Pt weighed 77 lbs upon arrival to [facility] bed scale. Pt weighed 91 lb in ED. Pt stated she was not properly weighed in ED -
had her purse on the bed which 'weighs at least 15 lbs' upon other things. Pt stated the weight was not accurate at 91 lbs and that she has been around 80 lbs. Pt weight checked again at 77 lbs. Will monitor.
[2025-01-06 23:58] LABS: Magnesium 1.8 mg/dl (1.6-2.3); Potassium 3.2 mmol/L (3.5-5.1)
[2025-01-07] VITALS (15 sets, daily range): BP systolic 94–159; BP diastolic 62–87; BMI 12.9
[2025-01-07 00:09] LABS: Troponin I < 0.012 ng/ml
[2025-01-07 06:05] LABS: Hematocrit 28.2 % (37.0-47.0); Hemoglobin 9.6 g/dL (12.0-16.0); Mean Corp Hgb Conc. 34.0 g/dL (33.0-37.0); Mean Corpuscular Volume 95.9 fL (81.0-99.0); Nucleated Red Blood Cells % 0 %; Platelet Count 254 10^3/uL (130-400); Red Cell Dist. Width 13.2 % (11.5-14.5)
[2025-01-07 06:25] LABS: Troponin I < 0.012 ng/ml
[2025-01-07 06:54] LABS: Blood Urea Nitrogen 7 mg/dl (7-17); Calcium 8.4 mg/dl (8.4-10.2); Carbon Dioxide 26 mmol/L (22-30); Chloride 101 mmol/L (98-107); Estimated Creatinine Clearance 48 ml/min; Glucose 114 mg/dl (70-99); Magnesium 1.5 mg/dl (1.6-2.3); Potassium 3.0 mmol/L (3.5-5.1); Sodium 137 mmol/L (135-145); eGFR > 60.00
--- NOTE | 2025-01-07 07:07 | CON.GI ---
Addendum entered and electronically signed by FLAKITA Villela 01/07/25 09:47:
reviewed with Dr. Ruiz plan for EGD today. K and mag to start shortly. reviewed with nursing staff.
Original Note:
Consultation
-
Date/Time Consultation Requested: 01/06/25 2100
Date/Time Consultation Performed: 01/07/25 0700
Requesting Provider: Polina Vasquez MD
Performing Provider: FLAKITA Lin, Judith Olsen DO
Reason for Consultation: vomiting, wt loss
Medical History
Chief Complaint / HPI
Chief Complaint: wt loss, unable to eat
History of Present Illness:
Pt is a 69yo with hx IBS, renal stone, prior Tobacco use, HTN, depression, cervical CA, and esophageal CA with EGD/EUS In March 2024 with concern wt loss, dysphagia, and noted esophageal adeno CA. Pt was referred to [place] and complete ESD
resection in April [address] Interiano. At that time PET without evidence for lymph node involvement or distant mets. Final path with T1A disease and pt was assess to not need further therapy. After ESD pt had fever with Ecoli bacteremia from
GI translocation. With wt loss, J tube was placed 04/16 by thoracic surgery and started TEN. She developed diarrhea and pt declined to proceed with further nutrition. She also has pain at J tube site and treated with pain meds. She also had
orthostasis during admission with need for IVF during admission. Imaging did show hepatic steatosis and lesion right hepatic lobe suggest AVM. Pet with steatosis with lap, peritoneal washing and liver bx completed with steatosis no malignancy.
She also had issues with insurance but was eventually discharge. Per patient she continued to have pain at J tube and eventual removal in July with complicated leakage from site and umbilical area that eventually resolved after several weeks.
She has follow up EGD in 08/2024 with no recurrent CA on follow up biopsy.
She was doing well until Mid November when she began with recurrent dysphagia with feeling of food sticking in lower esophagus and vomiting after eating. She will vomiting food, water and some bile. Over last 4 weeks she has lost 21 lbs with
worsening symptoms. She is also noted with shortness of breath and syncope at home. She denies hematemesis, odynophagia, GERD and abdominal pain with J tube has resolved with no further drainage. She admits to alternating normal stools with
diarrhea. No blood or black in stools. No anticoagulation or NSAID use.
Past Medical History
Past Medical History: Cancer (cervical cancer, esophageal adeno CA), HTN, Psychiatric (depression) and Other (IBS, renal stones, prior tobacco use, social ETOH)
Past Surgical History: Gynecological and Other (s/p esophagectomy at [facility], lap jejunotomy tube placement with drainage post treatment )
Social History
Tobacco: Former Smoker
Alcohol: Former (social )
Drug: None
Living: With Family
Employment: Retired
Family History
Family History: Other (no family hx GI cancers father with metastatic prostate CA)
Allergies / Home Medications
Allergy/AdvReac Type Severity Reaction Status Date / Time
cefazolin sodium (From [facility]) Allergy Anaphylaxis Verified 01/06/25 11:16
morphine Allergy Swelling Verified 01/06/25 11:16
�Medication �Instructions �Recorded
calcium carbonate 600 mg PO DAILY Supplement 01/06/25
lansoprazole 30 mg capsule,delayed 30 mg PO BID Gastrointestinal Issue 01/06/25
release
multivitamin 1 tab PO DAILY Supplement 01/06/25
thiamine HCl (vitamin B1) 100 mg 100 mg PO DAILY 01/06/25
tablet
Review of Systems
-
History Source: Patient
Constitutional: Reports Weight Loss and Fatigue
EENT: Reports Other (dysphagia with regurgitation)
Respiratory: Reports Trouble Breathing
Cardiac: Reports Syncope
Abdomen/GI: Reports Nausea, Vomiting and Diarrhea
: Reports Other (decreased amount with eating less )
Neurological: Reports Dizzy and Weakness
Endocrine: Reports No Symptoms
Hematologic/Lymphatic: Reports No Symptoms
Vital Signs
Temp Pulse Resp BP Pulse Ox
98.1 F 72 16 120/72 99
01/07/25 03:16 01/07/25 03:16 01/07/25 03:16 01/07/25 03:16 01/07/25 03:16
Physical Exam
Exam
General: Other (thin appearing )
HEENT: Normocephalic and Anicteric
Respiratory: Clear
Cardiac: Regular Rhythm
GI: Soft and Other (prior J tube )
Musculoskeletal: No Clubbing and No Cyanosis
Skin: Warm and Dry
Neuro: Awake, Alert and AO x 3
Psych: Calm
Results
WBC 6.2 10^3/uL (4.8-10.8) 01/07/25 05:34
Hgb 9.6 g/dL (12.0-16.0) L D 01/07/25 05:34
Hct 28.2 % (37.0-47.0) L 01/07/25 05:34
MCV 95.9 fL (81.0-99.0) 01/07/25 05:34
Plt Count 254 10^3/uL (130-400) D 01/07/25 05:34
Absolute Neuts (auto) 3.7 10^3/uL (1.4-6.5) 01/07/25 05:34
Sodium 137 mmol/L (135-145) 01/07/25 05:34
Potassium 3.0 mmol/L (3.5-5.1) L 01/07/25 05:34
Chloride 101 mmol/L (98-107) 01/07/25 05:34
Carbon Dioxide 26 mmol/L (22-30) 01/07/25 05:34
BUN 7 mg/dl (7-17) 01/07/25 05:34
Creatinine 0.4 mg/dL (0.6-1.0) L 01/07/25 05:34
Calcium 8.4 mg/dl (8.4-10.2) D 01/07/25 05:34
Total Bilirubin 1.0 mg/dl (0.2-1.3) 01/06/25 11:47
AST 31 U/L (14-36) 01/06/25 11:47
ALT 11 U/L (0-35) 01/06/25 11:47
Alkaline Phosphatase 54 U/L (38-126) 01/06/25 11:47
Diagnostic Image Results:
01/06/25 HCT neg
01/06/25- CT chest
Examination is negative for pulmonary embolism.
There is no evidence for thoracic aortic dissection or aneurysm.
Coronary artery calcifications are present. Please correlate with symptoms of and risk factors for coronary artery disease, with further workup as clinically appropriate.
Changes of emphysema within the upper lungs.
Fatty infiltration of the liver.
Addendum added for MIPS reporting: If the patient has emphysema, patient should be assessed for an annual low dose lung cancer CT program, as pulmonary emphysema is an independent risk factor for lung cancer.
09/26/24 CT A/P with IV contrast
Hepatomegaly with fatty infiltration.
No gallstones or bile duct dilatation. No main pancreatic duct dilatation.
Left anterior abdominal wall focal skin dimpling with subcutaneous linear soft tissue attenuation consistent with healed jejunostomy tract. No focal collection or abscess.
No umbilical hernia, inflammatory soft tissue stranding, focal collection or abscess.
Diverticulosis. No evidence of acute diverticulitis. No bowel obstruction.
Prior GI Procedures:
EGD: 03/11/2024- Stone
- No significant findings throughout the upper
examined GI tract to explain patient's weight loss and
anemia
- Normal proximal esophagus and mid esophagus.
- Widely patent muscular ring at 38 cms
- Mucosal nodule found in the esophagus at the GE
junction on direct and retroflexion views. Multiple
biopsies were obtained (sent for [facility])
- Small hiatal hernia.
- Minimal erythematous mucosa in the antrum. Biopsied
to r/o H pylori.
- Otherwise, normal stomach on direct and retroflexion
views.
- Few mucosal nodules found in the duodenum.
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
erythematous Trey's gland hyperplasia. The larger
mucosal nodule was biopsied to serve as a
apprenticeship representative sample to r/o adenoma.
- Otherwise, normal duodenum up to the fourth portion
without any AVMs or other vascular lesions.
- The examination was otherwise normal.
GE junction invasive adeno CA, stomach mild chronic in active gastritis, h pylori neg, SB bx with bunner gland hyperplasia, extensive gastric foveolar metaplasia, neg dysplasia
sakshi second opinion, adeno CA well to moderate differentiated undermining squamous epithelium
03/15/24 EUS Joseph anthony - Nodular, ulcerated mucosa (from recent biopsy) in
the GEJ at 40 cm from the incisors.
- No gross lesions in the entire stomach.
- Normal duodenal bulb, first portion of the duodenum
and second portion of the duodenum.
- A possible wall thickening was seen in the
gastroesophageal junction. The thickening appeared to
primarily be within the luminal interface/superficial
mucosa (Layer 1) and deep mucosa (Layer 2). The
submucosal layer appeared intact.
- Pancreatic parenchymal abnormalities consisting of
hyperechoic strands and hyperechoic foci were noted in
the pancreatic head and pancreatic body.
- There was no sign of significant pathology in the
common bile duct.
- No specimens collected.
04/27/25- ([facility])malignant tumor at GE junction, removal accomplished clip placed - ESD
08/06-([facility]- Dr. Interiano)
Z line irregular, bat at 40 cm with cold forceps, medium mucosectomy scar found at GE junction , scar healthy no evidence of prior polyp other esophagus, stomach normal
path negative for intestinal metaplasia, dysplasia and carcinoma
Colonoscopy: years ago abisol
Assessment / Plan
-
Pt is a 69yo with hx IBS, renal stone, prior Tobacco use, HTN, depression, cervical CA, and esophageal CA with EGD/EUS In March 2024 with concern wt loss, dysphagia, and noted esophageal adeno CA. Pt was referred to [place] and complete ESD
resection in April [address] Interiano. At that time PET without evidence for lymph node involvement or distant mets. Final path with T1A disease and pt was assess to not need further therapy. After ESD pt had fever with Ecoli bacteremia from
GI translocation. With wt loss, J tube was placed 04/16 by thoracic surgery and started TEN. She developed diarrhea and pt declined to proceed with further nutrition. She also has pain at J tube site and treated with pain meds. She also had
orthostasis during admission with need for IVF during admission. Imaging did show hepatic steatosis and lesion right hepatic lobe suggest AVM. Pet with steatosis with lap, peritoneal washing and liver bx completed with steatosis no malignancy.
She also had issues with insurance but was eventually discharge. Per patient she continued to have pain at J tube and eventual removal in July with complicated leakage from site and umbilical area that eventually resolved after several weeks.
She has follow up EGD in 08/2024 with no recurrent CA on follow up biopsy. She was doing well until Mid November when she began with recurrent dysphagia with feeling of food sticking in lower esophagus and vomiting after eating. She will vomiting food,
water and some bile. Over last 4 weeks she has lost 21 lbs with worsening symptoms. She is also noted with shortness of breath and syncope at home. She denies hematemesis, odynophagia, GERD and abdominal pain with J tube has resolved with no
further drainage. She admits to alternating normal stools with diarrhea. No anticoagulation or NSAID use.
-recurrent dysphagia/regurgitation with eating
-wt loss
-anemia
-electrolyte imbalance
-hx esophageal Adeno CA with ESD resection at [facility] [place] in April 2024 with complicated post-procedure course
-prior J tube with leakage and pain with use now out
-syncope
-palpitations
-intermittent diarrhea/ IBS
other med problems:
-hx cervical CA
-HTN
-renal stone
-fatty liver /liver mass with neg bx
PLAN:
Will review with Dr. Ruiz for EGD to assess for etiology of recurrent dysphagia- tumor, stricture vs other
NPO
IVF
cont to correct electrolytes with low K and mag noted today
maintain adequate perfusion/hydration with dehydration and syncope prior to admission
cont PPI
with wt loss await EGD -- pt hesitant for any further feeding tubes with difficulty in past
-
-
Thank you for consultation and allowing me to participate in the patient's care. Please call the correctional agency director GI physician during the after hours with any questions or concerns.
[2025-01-07] MEDS: NSS (PRESERVATIVE FREE) 10 ML IV ×2 (07:26→20:45)
[2025-01-07] MEDS: PROTONIX IV 40 MG IV ×2 (07:27→20:45)
[2025-01-07] MEDS: THIAMINE INJECTION 200 MG IV ×2 (07:28→20:45)
[2025-01-07] MEDS: KCL 270 MEQ IV (08:58)
[2025-01-07] MEDS: MAGNESIUM SULFATE 50 IV (09:00)
[2025-01-07] MEDS: D5LR 1000 IV (10:50)
--- NOTE | 2025-01-07 11:20 | W.PN.HOSP.TC ---
Today's Communication/Plan
-
NPO for EGD
replete and monitor electrolytes
Assessment / Plan
Assessment / Plan
Ms. Constance Avendaño is a 69 yo woman with hx essential HTN, remote history cervical cancer, esophageal adenocarcinoma s/p surgical removal at [facility] 04/27 presents to the ER with difficulty keeping food down over the past 5 weeks. She reports instances
of orthostatic syncope and is found to have severe hypomagnesemia.
HEAD CT
IMPRESSION:
No evidence of acute intracranial abnormality.
CHEST CT
IMPRESSION: Examination is negative for pulmonary embolism.
There is no evidence for thoracic aortic dissection or aneurysm.
Coronary artery calcifications are present. Please correlate with symptoms of and risk factors for coronary artery disease, with further workup as clinically appropriate.
Changes of emphysema within the upper lungs.
Fatty infiltration of the liver.
TTE 01/07/25
SUMMARY
1. Normal biventricular size and systolic function without regional wall motion abnormality.
2. No significant valve disease.
3. No prior study available for comparison
Syncope
-orthostatic syncope in setting of severe dehydration
-s/p 2L fluids in ER, continue D5 LR
-Troponin negative x 2
-monitor on telemetry
Palpitations
-suspect related to hypomagnesemia and severe dehydration; improved today
-TTE without valve disease, no WMA - results above
Anorexia with Vomiting
-similar to symptoms that led to diagnosis of invasive adenocarcinoma 03/28
-appreciate GI consult, plan for EGD
-IV Protonix BID
-IV Zofran PRN
-will need to figure out nutrition
Hypomagnesemia
-replete (add additional 2G now and repeat at 11 PM) Goal Mag > 2
Hypokalemia
-repleted in ER
Phos WNL
DVT PPx SCD
FULL CODE
51 minutes spent on patient care
Anticipated Discharge: > 48 hours
Subjective/Interval History
-
Date of Service: January 07, 2025
less dizzy when standing
Objective Data
-
Labs:
Laboratory Results
01/06/25 01/07/25 01/07/25
23:28 05:34 09:46
WBC 6.2
Hgb 9.6 L D
Hct 28.2 L
Plt Count 254 D
PT Pending
INR Pending
Sodium 137
Potassium 3.2 L 3.0 L
Chloride 101
Carbon Dioxide 26
BUN 7
Creatinine 0.4 L
Glucose 114 H
Calcium 8.4 D
01/07/25 01/07/25 01/07/25
10:06 11:00 14:00
WBC
Hgb Pending Cancelled
Hct
Plt Count
PT
INR
Sodium
Potassium Cancelled
Chloride
Carbon Dioxide
BUN
Creatinine
Glucose
Calcium
01/07/25
16:00
WBC
Hgb
Hct
Plt Count
PT
INR
Sodium
Potassium Pending
Chloride
Carbon Dioxide
BUN
Creatinine
Glucose
Calcium
Vital Signs:
Vital Signs
Temp Pulse Resp BP Pulse Ox
98.4 F 79 16 94/62 98
01/07/25 07:00 01/07/25 07:00 01/07/25 07:00 01/07/25 07:00 01/07/25 07:00
I&O
01/06/25 01/07/25 01/08/25
06:59 06:59 06:59
Output Total 250 / 250
Balance -250 / -250
Review of Systems
-
History Source: Patient
All other systems: Reviewed and negative
Physical Exam
-
General: No Apparent Distress, Comfortable and Cachectic
HEENT: Normocephalic and Atraumatic
Respiratory: Clear to Auscultation
Cardiac: Regular Rhythm and S1/S2
GI: Soft and Nontender
Musculoskeletal: No Edema
Skin: Warm, Dry and Other; Negative Rash
Neuro: Awake, Alert and AO x 3
Psych: Calm
Data Reviewed
-
Diagnostic Radiology: Report Reviewed by me
Labs: Labs Reviewed by me
[2025-01-07 14:17] LABS: Hemoglobin 10.1 g/dL (12.0-16.0)
[2025-01-07 14:28] LABS: INR 1.13; PT 14.8 Sec (11.4-14.6)
[2025-01-07 14:59] LABS: Magnesium 1.7 mg/dl (1.6-2.3); Potassium 3.9 mmol/L (3.5-5.1)
--- NOTE | 2025-01-07 16:57 | CM ---
Alert awake oriented patient who lives with her son Albert in a 2 story home with 1 steps to enter and 13 steps to bed/bathroom. She is assisted in activates of daily living.She does not drive .She uses and transfer wheel chair.
Had [facility] RIBERA in past . No SNF hx
Pharmacy [facility]
PCP Dr Kierra Figueredo
PLAN Will need PT Ot for dc planning . Pt said she will not go to SNF
[2025-01-07] MEDS: FLUSH (NSS) 2 FLUSH IV (20:46)
[2025-01-08] VITALS (7 sets, daily range): BP systolic 108–134; BP diastolic 71–83
--- NOTE | 2025-01-08 00:45 | PTCARENOTE ---
Assumed care of patient from previous RN at change of shift - per reports of dayshift RN, urine sample sent and results pending for potential UTI. Patient c/o burning with urination. Pending urine results no longer visible, called lab and was
informed that a specimen was not received on their end from end of dayshift. Lab informed this RN that the order was now in for 2300pm and will need to be re-collected and sent. Patient very upset and demanding to speak with the nursing shuttle veneering supervisor
on shift, states 'If I don't speak with someone t[place], I will be speaking with the FITNESS AND WELLNESS COORDINATOR tomorrow morning. This is not the first time this has happened at this hospital. This place almost killed me the last time I was in, and now I am sitting here
with pain so bad that I am almost in tears every time I pee. The only acceptable person this place can handle is someone on hospice who has no clue what is happening.' Notified shuttle veneering supervisor and FLAKITA Everett -- TEACHING ARTIST on unit. Working on obtaining new clean
catch specimen to send off. Patient is requesting 'something to calm me down before I have a heart attack' and would like to have something ordered for the painful/burning urination. TEACHING ARTIST states she will order Bactrim, unable to order any new
medications for anxiety at this time. Will monitor.
[2025-01-08 01:49] LABS: Urine Character Clear (Clear)
--- NOTE | 2025-01-08 02:17 | W.PN.UPDATE ---
Update Note
Progress Note Update
Notified by RN pt having pain/burning with urination. VSS. Pending UA (Urine sample apparently was missing). Rx Bactrim since she is symptomatic.
Addendum - Patient 2nd Urine sample UA came back neg. d/c Bactrim, Rx Pyridium.
[2025-01-08] MEDS: BACTRIM 400 MG/80 MG 1 TABLET PO (02:21)
[2025-01-08] MEDS: D5LR 1000 IV ×2 (03:03→21:45)
[2025-01-08 05:54] LABS: Hematocrit 28.9 % (37.0-47.0); Hemoglobin 10.3 g/dL (12.0-16.0); Mean Corp Hgb Conc. 35.6 g/dL (33.0-37.0); Mean Corpuscular Volume 95.1 fL (81.0-99.0); Platelet Count 267 10^3/uL (130-400); Red Cell Dist. Width 13.1 % (11.5-14.5)
[2025-01-08 06:48] LABS: Blood Urea Nitrogen < 2 mg/dl (7-17); Calcium 8.9 mg/dl (8.4-10.2); Carbon Dioxide 31 mmol/L (22-30); Chloride 100 mmol/L (98-107); Estimated Creatinine Clearance 48 ml/min; Glucose 152 mg/dl (70-99); Magnesium 1.3 mg/dl (1.6-2.3); Potassium 3.3 mmol/L (3.5-5.1); Sodium 135 mmol/L (135-145); eGFR > 60.00
[2025-01-08] MEDS: NSS (PRESERVATIVE FREE) 10 ML IV ×2 (08:03→20:10)
[2025-01-08] MEDS: PROTONIX IV 40 MG IV ×2 (08:05→20:10)
[2025-01-08] MEDS: THIAMINE INJECTION IV ×2 (08:05→11:04)
[2025-01-08] MEDS: THIAMINE INJECTION 102 MG IV ×2 (10:29→20:58)
--- NOTE | 2025-01-08 11:41 | W.PN.HOSP.TC ---
Today's Communication/Plan
-
advance to full liquid diet
Assessment / Plan
Assessment / Plan
Ms. Constance Avendaño is a 69 yo woman with hx essential HTN, remote history cervical cancer, esophageal adenocarcinoma s/p surgical removal at [facility] 04/27 presents to the ER with difficulty keeping food down over the past 5 weeks. She reports instances
of orthostatic syncope and is found to have severe hypomagnesemia.
HEAD CT
IMPRESSION:
No evidence of acute intracranial abnormality.
CHEST CT
IMPRESSION: Examination is negative for pulmonary embolism.
There is no evidence for thoracic aortic dissection or aneurysm.
Coronary artery calcifications are present. Please correlate with symptoms of and risk factors for coronary artery disease, with further workup as clinically appropriate.
Changes of emphysema within the upper lungs.
Fatty infiltration of the liver.
TTE 01/07/25
SUMMARY
1. Normal biventricular size and systolic function without regional wall motion abnormality.
2. No significant valve disease.
3. No prior study available for comparison
EGD 01/07/25
Impression:
- Scar at the gastroesophageal junction. Biopsied.
- No obvious stenosis noted. Empirical dilation performed at the
gastroesophageal junction with a 12-13.5-15 mm balloon (to a maximum
balloon size of 15 mm) dilator with minimal resistance, suggestive
that there is no stenosis.
- No gross lesions in the entire stomach.
- Normal duodenal bulb, second portion of the duodenum and first
portion of the duodenum.
Anorexia with Vomiting
-similar to symptoms that led to diagnosis of invasive adenocarcinoma 03/28
-appreciate GI consult, now s/p EGD on 01/07 with empirical dilation at GE junction; scar at GE junction s/p biopsy
-IV Protonix BID
-IV Zofran PRN
-patient has been tolerating clears since procedure --> advance to fulls
Syncope
-orthostatic syncope in setting of severe dehydration
-s/p 2L fluids in ER, continue D5 LR, stop if tolerating fulls later
-Troponin negative x 2
-monitor on telemetry
Palpitations
-suspect related to hypomagnesemia and severe dehydration; improved today
-TTE without valve disease, no WMA - results above
Hypomagnesemia
-replete
Hypokalemia
-replete
Phos WNL
DVT PPx SCD
FULL CODE
51 minutes spent on patient care
Anticipated Discharge: 24 - 48 hours
Subjective/Interval History
-
Date of Service: January 08, 2025
tolerating clears, hoping to advance diet
feeling less dizzy, no palpitations
Objective Data
-
Labs:
Laboratory Results
01/08/25
05:45
WBC 7.7
Hgb 10.3 L
Hct 28.9 L
Plt Count 267
Sodium 135
Potassium 3.3 L
Chloride 100
Carbon Dioxide 31 H
BUN < 2 L
Creatinine 0.4 L
Glucose 152 H
Calcium 8.9
Vital Signs:
Vital Signs
Temp Pulse Resp BP Pulse Ox
98.3 F 80 16 134/74 96
01/08/25 07:00 01/08/25 07:00 01/08/25 07:00 01/08/25 07:00 01/08/25 07:00
I&O
01/07/25 01/08/25 01/09/25
06:59 06:59 06:59
Intake Total 500 / 500 1490 / 1490
Output Total 250 / 250 950 / 950
Balance -250 / -250 500 / 500 540 / 540
Review of Systems
-
History Source: Patient
All other systems: Reviewed and negative
Physical Exam
-
General: No Apparent Distress, Comfortable and Cachectic
HEENT: Normocephalic and Atraumatic
Respiratory: Clear to Auscultation
Cardiac: Regular Rhythm and S1/S2
GI: Soft and Nontender
Musculoskeletal: No Edema
Skin: Warm, Dry and Other; Negative Rash
Neuro: Awake, Alert and AO x 3
Psych: Calm
Data Reviewed
-
Diagnostic Radiology: Report Reviewed by me
Labs: Labs Reviewed by me
[2025-01-08] MEDS: MAGNESIUM SULFATE 100 IV (12:12)
[2025-01-08] MEDS: KCL 270 MEQ IV (12:44)
--- NOTE | 2025-01-08 15:36 | W.PN.GI.CBS2 ---
Today's Communication / Plan
-
-- Advance diet, start Remeron at night, possible discharge tomorrow
Assessment / Plan
-
Pt is a 69yo with hx IBS, renal stone, prior Tobacco use, HTN, depression, cervical CA, and esophageal CA with EGD/EUS In March 2024 with concern wt loss, dysphagia, and noted esophageal adeno CA. Pt was referred to [place] and complete ESD
resection in April [address] Interiano. At that time PET without evidence for lymph node involvement or distant mets. Final path with T1A disease and pt was assess to not need further therapy. After ESD pt had fever with Ecoli bacteremia from
GI translocation. With wt loss, J tube was placed 04/16 by thoracic surgery and started TEN. She developed diarrhea and pt declined to proceed with further nutrition. She also has pain at J tube site and treated with pain meds. She also had
orthostasis during admission with need for IVF during admission. Imaging did show hepatic steatosis and lesion right hepatic lobe suggest AVM. Pet with steatosis with lap, peritoneal washing and liver bx completed with steatosis no malignancy.
She also had issues with insurance but was eventually discharge. Per patient she continued to have pain at J tube and eventual removal in July with complicated leakage from site and umbilical area that eventually resolved after several weeks.
She has follow up EGD in 08/2024 with no recurrent CA on follow up biopsy. She was doing well until Mid November when she began with recurrent dysphagia with feeling of food sticking in lower esophagus and vomiting after eating. She will vomiting food,
water and some bile. Over last 4 weeks she has lost 21 lbs with worsening symptoms. She is also noted with shortness of breath and syncope at home. She denies hematemesis, odynophagia, GERD and abdominal pain with J tube has resolved with no
further drainage. She admits to alternating normal stools with diarrhea. No anticoagulation or NSAID use.
-recurrent dysphagia/regurgitation with eating
-wt loss
-anemia
-electrolyte imbalance
-hx esophageal Adeno CA with ESD resection at [place] in April 2024 with complicated post-procedure course
-prior J tube with leakage and pain with use now out
-syncope
-palpitations
-intermittent diarrhea/ IBS
other med problems:
-hx cervical CA
-HTN
-renal stone
-fatty liver /liver mass with neg bx
01/07/2025 -reviewed EGD including pictures
EGD with Dr. Ruiz: Scar in the distal esophagus with no overt residual tissue. Area biopsied, dilated distal esophagus to 15 with some endoscopic improvement
01/08/2025 -patient tolerating full liquid diet well with no further nausea or vomiting
Will advance diet to soft and bite sized
We discussed options for medications which she has issues with her anxiety. I would not recommend Wellbutrin due to her weight loss which she did not do well with it anyway
We discussed starting Remeron 7.5 mg in the evening and titrating up outpatient with her PCP. This medication is great for appetite and nausea as well as sleep and some antianxiety effects as well
If patient is doing well she can go home tomorrow with outpatient follow-up
Subjective
Subjective
Date of Service: January 08, 2025
Patient tolerating full liquid diet very well. Has no nausea or vomiting
Patient states symptoms of nausea occur when she has high anxiety and then things worsen
Objective
Data Reviewed
Laboratory Data:
Laboratory Results
01/08/25 05:45
01/08/25 05:45
Laboratory Results
PT 14.8 Sec (11.4-14.6) H 01/07/25 14:05
INR 1.13 01/07/25 14:05
Phosphorus 4.4 mg/dl (2.5-4.5) 01/06/25 11:47
Magnesium 1.3 mg/dl (1.6-2.3) L 01/08/25 05:45
Total Bilirubin 1.0 mg/dl (0.2-1.3) 01/06/25 11:47
AST 31 U/L (14-36) 01/06/25 11:47
ALT 11 U/L (0-35) 01/06/25 11:47
Alkaline Phosphatase 54 U/L (38-126) 01/06/25 11:47
Vital Signs and I&O:
Vital Signs
Temp Pulse Resp BP Pulse Ox
98.8 F 79 17 127/71 99
01/08/25 11:00 01/08/25 11:00 01/08/25 11:00 01/08/25 11:00 01/08/25 11:00
I&O
01/07/25 01/08/25 01/09/25
06:59 06:59 06:59
Intake Total 500 / 500 1490 / 1490
Output Total 250 / 250 950 / 950
Balance -250 / -250 500 / 500 540 / 540
Physical Exam
Physical Exam
HEENT: Anicteric
Cardiology: Normal Sinus Rhythm
GI: Soft
Neuro: Non Focal
[2025-01-08] MEDS: REMERON 7.5 MG PO (20:58)
--- NOTE | 2025-01-08 21:00 | PTCARENOTE ---
Patient encouraged to use BSC to toilet, and to stop using purwick device. Patient found sitting on soiled Covidien and bed sheets soiled with urine. Patient insistent on using purwick as she states she has urine urgency and frequency and is unable
to make it to the BSC during those episodes. Patient states 'I will be sitting in a pool of urine if I have to do that. I need to keep that with me.' Reviewed risks with patient and spoke about concern of obtaining infection. UA from 01/07 negative.
Patient states she is aware and will 'take the risk.' Provided patient with warm cloth complete bath, back rub, new linens and gown. New purwick setup and device provided. Patient is only placing purwick to void, then taking it out and keeping it
bedside in the original packaging. Also reviewed with patient that this is not the intended/proper use of the device. Patient ready to attempt to get sleep tonight, PM medications provided. Call clifton is in place. IVFs maintained per MD orders. Will
monitor.
[2025-01-09 03:00] VITALS: BP 129/83
[2025-01-09 06:48] LABS: Blood Urea Nitrogen < 2 mg/dl (7-17); Calcium 9.0 mg/dl (8.4-10.2); Carbon Dioxide 28 mmol/L (22-30); Chloride 106 mmol/L (98-107); Estimated Creatinine Clearance 48 ml/min; Glucose 117 mg/dl (70-99); Magnesium 1.8 mg/dl (1.6-2.3); Potassium 3.5 mmol/L (3.5-5.1); Sodium 138 mmol/L (135-145); eGFR > 60.00
[2025-01-09 07:00] VITALS: BP 124/70
[2025-01-09] MEDS: PROTONIX IV 40 MG IV (08:56)
[2025-01-09] MEDS: NSS (PRESERVATIVE FREE) 10 ML IV (08:57)
[2025-01-09] MEDS: THIAMINE INJECTION 102 MG IV (08:57)
[2025-01-09 11:00] VITALS: BP 99/66
--- NOTE | 2025-01-09 11:31 | W.PN.HOSP.TC ---
Today's Communication/Plan
-
monitor PO intake on regular diet
possible DC within next 24 hours
Assessment / Plan
Assessment / Plan
Ms. Constance Avendaño is a 69 yo woman with hx essential HTN, remote history cervical cancer, esophageal adenocarcinoma s/p surgical removal at [facility] 04/27 presents to the ER with difficulty keeping food down over the past 5 weeks. She reports instances
of orthostatic syncope and is found to have severe hypomagnesemia.
HEAD CT
IMPRESSION:
No evidence of acute intracranial abnormality.
CHEST CT
IMPRESSION: Examination is negative for pulmonary embolism.
There is no evidence for thoracic aortic dissection or aneurysm.
Coronary artery calcifications are present. Please correlate with symptoms of and risk factors for coronary artery disease, with further workup as clinically appropriate.
Changes of emphysema within the upper lungs.
Fatty infiltration of the liver.
TTE 01/07/25
SUMMARY
1. Normal biventricular size and systolic function without regional wall motion abnormality.
2. No significant valve disease.
3. No prior study available for comparison
EGD 01/07/25
Impression:
- Scar at the gastroesophageal junction. Biopsied.
- No obvious stenosis noted. Empirical dilation performed at the
gastroesophageal junction with a 12-13.5-15 mm balloon (to a maximum
balloon size of 15 mm) dilator with minimal resistance, suggestive
that there is no stenosis.
- No gross lesions in the entire stomach.
- Normal duodenal bulb, second portion of the duodenum and first
portion of the duodenum.
Anorexia with Vomiting
-similar to symptoms that led to diagnosis of invasive adenocarcinoma 03/28
-appreciate GI consult, now s/p EGD on 01/07 with empirical dilation at GE junction; scar at GE junction s/p biopsy
-IV Protonix BID
-IV Zofran PRN
-advance to regular diet
-discussing discharge with patient, will check in this afternoon to see how she tolerates diet
Syncope
-orthostatic syncope in setting of severe dehydration
-now resolved post fluid administration
-Troponin negative x 2
-monitored on telemetry - OK to transfer to med/surg
Palpitations
-suspect related to hypomagnesemia and severe dehydration; improved today
-TTE without valve disease, no WMA - results above
Hypomagnesemia
-repletee
Hypokalemia
-repleted
repeat labs as outpatient
Phos WNL
DVT PPx SCD
FULL CODE
51 minutes spent on patient care
Anticipated Discharge: Within 24 hours
Subjective/Interval History
-
Date of Service: January 09, 2025
she is happy to be eating food
Objective Data
-
Labs:
Laboratory Results
01/09/25
06:10
Sodium 138
Potassium 3.5
Chloride 106
Carbon Dioxide 28
BUN < 2 L
Creatinine 0.4 L
Glucose 117 H
Calcium 9.0
Vital Signs:
Vital Signs
Temp Pulse Resp BP Pulse Ox
99.5 F 92 17 99/66 98
01/09/25 11:00 01/09/25 11:00 01/09/25 11:00 01/09/25 11:00 01/09/25 11:00
I&O
01/08/25 01/09/25 01/10/25
06:59 06:59 06:59
Intake Total 500 / 500 1989 / 1989
Output Total 1300 / 1300
Balance 500 / 500 690 / 690
Review of Systems
-
History Source: Patient
All other systems: Reviewed and negative
Physical Exam
-
General: No Apparent Distress, Comfortable and Cachectic
HEENT: Normocephalic and Atraumatic
Respiratory: Clear to Auscultation
Cardiac: Regular Rhythm and S1/S2
GI: Soft and Nontender
Musculoskeletal: No Edema
Skin: Warm, Dry and Other; Negative Rash
Neuro: Awake, Alert and AO x 3
Psych: Calm
Data Reviewed
-
Diagnostic Radiology: Report Reviewed by me
Labs: Labs Reviewed by me
--- NOTE | 2025-01-09 14:16 | CM ---
Addendum entered by America Banda 01/09/25 15:10:
Pt asked that she have [facility] instead of [facility].
[facility] Fax:
Original Note:
CM met with Constance who lives with her son Albert in a 2 story home with 1 entry step; 13 steps to bed/bathroom. She is assisted with ADLs, She does not drive.
She uses a transport wheel chair.
[facility] in past; No SNF hx
Pharmacy: [facility]
PCP: Dr Kierra Figueredo
PLAN: Discharge to home today with [facility].
--- NOTE | 2025-01-09 14:35 | W.DS.TRANS ---
DC Summary - Recreation Therapist
-
Discharge Instructions:
Discharge Diagnosis/Procedures electrolyte abnormalities in setting of poor PO
intake
Diet Regular
Activity As tolerated
Driving Restrictions As prior to admission
Bathing Restrictions None
Blood Work CBC and BMP in 3-4 days
Other Services VN,PT
Instructions:
Stand-Alone Forms:
Changes to Home Medications: Yes
Discharge Medications:
DC Medications w/original date entered in [employer]
calcium carbonate 600 mg PO DAILY Supplement 01/06/25
lansoprazole 30 mg capsule,delayed release 30 mg PO BID Gastrointestinal Issue 01/06/25
multivitamin 1 tab PO DAILY Supplement 01/06/25
thiamine HCl (vitamin B1) 100 mg tablet 100 mg PO DAILY Supplement 01/06/25
mirtazapine 7.5 mg tablet 7.5 mg PO HS #30 tabs 01/09/25
phenazopyridine 100 mg tablet 100 mg PO TIDPRN PRN dysuria #30 tabs 01/09/25
Home Medication Changes
addition of Phenazopyridine and remeron
Pending Results: No
--- NOTE | 2025-01-09 14:37 | W.DCSUMMARY ---
Discharge Summary
Discharge Data
Date of Admission: 01/06/25
Date of Discharge: 01/09/25
-
Pending Results: No
Hospital Course
Discharging Physician : Dr. Polina Vasquez
Disposition : Home with VN
Primary care physician : Dr. Kierra Figueredo
Principal Discharge diagnosis : Poor PO intake resulting in electrolyte imbalances status post distal esophagus dilation with improvement in symptoms
Hospital Course :
Ms. Constance Avendaño is a 69 yo woman with hx essential HTN, remote history cervical cancer, esophageal adenocarcinoma s/p surgical removal at [facility] 04/27 presents to the ER with difficulty keeping food down over the past 5 weeks. She reported instances
of dizziness and near passing out when standing and walking. She states she waited 5 weeks to come to the hospital because she had a bad roommate experience last stay.
Triage vitals significant for pulse 122, BP 110/83, Labs with WBC 7.2, normal renal function, K+ 3.4 and Mag 1.0. EKG sinus tachycardia @ 115.
Patient was admitted to medicine with GI consulting. Her dizziness and palpitations resolved with fluid administration and electrolyte repletion. TTE was done which shows no valvular disease and no WMA.
She underwent endoscopy on 01/07/25 and is s/p empirical dilation of GE junction. Post this procedure, her PO intake improved. Her diet was advanced to regular. She is tolerating regular diet and feels ready to leave. Given PO intake much
improved, I do not see need to prescribe Potassium at discharge. She is told she can take Magnesium Glycinate which has less GI side effects. I have given her scripts to get repeat labs in 3-4 days.
Remeron started per GI as can improve appetite and help with symptoms of anxiety which she reported. It is prescribed at 7.5mg qhs at dischage.
Of note, patient complained of dysuria. Her UA was completely clear without any evidence of inflammation. She is prescribed Pyridium. If she has persistent symptoms, will need to follow up with outpatient provider. I offered repeat UA prior to
discharge but patient did not want to wait for this. One can repeat UA as outpatient or refer to Urology for cystitis symptoms.
Time spent on discharge was 35 minutes.
Important imaging findings :
HEAD CT 01/06/25
IMPRESSION:
No evidence of acute intracranial abnormality.
CHEST CT 01/06/25
IMPRESSION: Examination is negative for pulmonary embolism.
There is no evidence for thoracic aortic dissection or aneurysm.
Coronary artery calcifications are present. Please correlate with symptoms of and risk factors for coronary artery disease, with further workup as clinically appropriate.
Changes of emphysema within the upper lungs.
Fatty infiltration of the liver.
TTE 01/07/25
SUMMARY
1. Normal biventricular size and systolic function without regional wall motion abnormality.
2. No significant valve disease.
3. No prior study available for comparison
Procedure findings :
EGD 01/07/25
Impression:
- Scar at the gastroesophageal junction. Biopsied.
- No obvious stenosis noted. Empirical dilation performed at the
gastroesophageal junction with a 12-13.5-15 mm balloon (to a maximum
balloon size of 15 mm) dilator with minimal resistance, suggestive
that there is no stenosis.
- No gross lesions in the entire stomach.
- Normal duodenal bulb, second portion of the duodenum and first
portion of the duodenum.
Discharge Plan
-
Patient Disposition: Home with Home Care
Discharge Diagnosis/Procedures: electrolyte abnormalities in setting of poor PO intake
Diet: Regular
Activity: As tolerated
Driving Restrictions: As prior to admission
Bathing Restrictions: None
Blood Work: CBC and BMP in 3-4 days
Other Services: VN and PT
Referrals:
Kierra Figueredo MD [Family Provider, Internal Medicine] - in less than 1 week
Additional Discharge Medication Instructions: You can take Magnesium Glycinate (over the counter); which can help replete magnesium with less gastrointestinal side effects
Prescriptions:
New
phenazopyridine 100 mg Tablet
100 mg PO TIDPRN PRN (Reason: dysuria) Qty: 30 0RF
mirtazapine 7.5 mg Tablet
7.5 mg PO HS Qty: 30 0RF
Continued
multivitamin Tablet
1 tab PO DAILY
thiamine HCl (vitamin B1) 100 mg Tablet
100 mg PO DAILY
calcium carbonate 600 mg calcium (1,500 mg) Tablet
600 mg PO DAILY
lansoprazole 30 mg Capsule,Delayed Release(Dr/Ec)
30 mg PO BID
Discharge Orders:
Discharge Patient (As Directed); Ordered 01/09/25
Ordered By: Polina Vasquez
Discharge Date and Time
Print Language: BENINESE
[2025-01-09 15:00] VITALS: BP 128/74
== END 2025-01-09 16:05 | disposition home health service (06) | DRG 641 ==
LOC: 3 WEST ACU 17:32
PROVIDERS: Internal Medicine Gastroenterology; Nurse Practitioner Adult Health; ADMITTING PHYSICIAN Student in an Organized Health Care Education/Training Program; CONSULT PHYSICIAN Internal Medicine; EMERGENCY PHYSICIAN Emergency Medicine; FAMILY PHYSICIAN Hospitalist
PROC: 0D738ZZ Dilation of Lower Esophagus, Via Natural or Artificial Opening Endoscopic (ICD-10-PCS; 2025-01-07)
PROC: 0DB48ZX Excision of Esophagogastric Junction, Via Natural or Artificial Opening Endoscopic, Diagnostic (ICD-10-PCS; 2025-01-07)
DX: E83.42 Hypomagnesemia (principal); R64 Cachexia; Z68.1 Body mass index [BMI] 19.9 or less, adult; E87.6 Hypokalemia; E86.0 Dehydration; I25.10 Atherosclerotic heart disease of native coronary artery without angina pectoris; R63.0 Anorexia; J43.9 Emphysema, unspecified; K76.0 Fatty (change of) liver, not elsewhere classified; D64.9 Anemia, unspecified; I10 Essential (primary) hypertension; K22.89 Other specified disease of esophagus; R11.2 Nausea with vomiting, unspecified; K44.9 Diaphragmatic hernia without obstruction or gangrene; K57.30 Diverticulosis of large intestine without perforation or abscess without bleeding; R13.10 Dysphagia, unspecified; S09.90XA Unspecified injury of head, initial encounter; W19.XXXA Unspecified fall, initial encounter; Z85.01 Personal history of malignant neoplasm of esophagus; Z85.41 Personal history of malignant neoplasm of cervix uteri; Z87.891 Personal history of nicotine dependence; Z79.899 Other long term (current) drug therapy
CPT/HCPCS: 70450; 71275; 80048; 80053; 81003; 83735; 84100; 84132; 84443; 84484; 85018; 85025; 85027; 85379; 85610; 88305; 93005; 93306; 96361; 96365; 96366; 96375; 99285; C1726; Q9967

== ENCOUNTER → 2025-02-25 12:16 | Outpatient (REF) | payer OTHER, SELFPAY ==
[2025-02-25 12:50] VITALS: BP 126/74; BP_SYST 86; BMI 13.6
== END ==
LOC: RADI 12:16
PROVIDERS: ATTENDING PHYSICIAN Hospitalist
DX: B99.9 Unspecified infectious disease (principal)
CPT/HCPCS: 36573; C1751

== ENCOUNTER 2025-03-28 15:51 | Inpatient (IN) | payer OTHER, SELFPAY ==
[2025-03-28] VITALS (13 sets, daily range): BP systolic 128–185; BP diastolic 78–114; BMI 15.4; BMI 14.8
--- NOTE | 2025-03-28 13:01 | ED.GENMED ---
History of Present Illness
General
Chief Complaint: Breathing Problem
Source: patient
Exam Limitations: none
Time Seen by Provider: 03/28/25 12:47
Nursing documentation reviewed up to this point in time: agreed with
History of Present Illness
History of Present Illness:
Note:
CHIEF COMPLAINT(S)
Shortness of breath, chest pressure, and low potassium.
HISTORY OF PRESENT ILLNESS
The patient is a 69-year-old female with a history of heart problems who presents with shortness of breath and chest pressure persisting since late Friday night. She reports that her primary care physician has been trying to stabilize her, but a
recent attempt using medication was unsuccessful, causing nausea and vomiting. The patient describes an experience with a powder medication intended to resolve in water, which led to her vomiting after consuming two ounces. Additionally, she reports
experiencing a bad headache and auditory disturbances.
The patient mentions that her infusion nurse, who checks her blood weekly, informed her of low potassium levels and advised her to discuss this during her visit. Although she did not present solely for low potassium levels, it was noted as a
concern. The patient has also been hospitalized for 31 days and has had ongoing issues since then. She experienced challenges with nutrition intake and had a jejunostomy tube removed in July, which was initially placed for extra nutrition and
potential chemotherapy needs, although chemotherapy was not administered.
PAST MEDICAL AND SURIGICAL HISTORY
- History of heart problems.
- Jejunostomy tube insertion, later removed in July.
SOCIAL HISTORY
- Previous smoking history, quit 40 years ago.
REVIEW OF SYSTEMS
- Respiratory: Shortness of breath when walking about 10 feet.
- Neurological: Reports of a bad headache and auditory disturbances.
PHYSICAL EXAM
General: Alert, no acute distress.
Skin: Warm, dry.
Head: Normocephalic, atraumatic.
Neck: Supple, trachea midline.
Eye Ears, mouth, nose, and throat: Oral mucosa moist.
Cardiovascular: Normal peripheral perfusion, no edema.
Respiratory: Respirations are non-labored.
Gastrointestinal: Abdomen nondistended.
Back: Normal range of motion, Normal alignment.
Musculoskeletal: Normal Range of Motion, normal strength.
Neurological: Alert and oriented to person, place, time, and situation, No focal neurological deficit observed.
Psychiatric: Cooperative, appropriate mood & affect.
PROBLEM LIST
Acute Problems:
- Shortness of breath
- Chest pressure
- Low potassium
Chronic Problems:
- Heart problems
PLAN
- The patient will need to stay in the hospital if potassium levels are confirmed to be below two.
- Potassium supplementation will be administered if required.
DIFFERENTIAL DIAGNOSIS
The Differential Diagnosis includes, in no particular order and is not limited to:
1. Congestive heart failure
2. Acute coronary syndrome
3. Pulmonary embolism
4. Pneumonia
5. Chronic obstructive pulmonary disease exacerbation
6. Anemia
7. Anxiety or panic disorders
8. Hypertensive crisis
9. Pneumothorax
10. Arrhythmia
EKG
My independent EKG interpretation is:
- Time of EKG: Not specified
- Rhythm: Sinus tachycardia
- Heart Rate: 102 bpm
- Notable Intervals:
- [place] Interval: Normal
- QRS Duration: Normal
- [place]: Left-axis deviation
- Abnormalities:
- Occasional PVCs (Premature Ventricular Contractions)
- No specific ST segment changes or T wave abnormalities observed
Disposition:
SUMMARY OF ENCOUNTER
The patient, a 69-year-old female with a known history of heart problems, presented to the emergency department with shortness of breath and chest pressure. Initial evaluation indicated concerns of hypokalemia and hypomagnesemia, contributing to her
symptoms. During the visit, chest pain was noted, but acute coronary syndrome (ACS) or pulmonary embolism (PE) was not suspected due to the absence of parenchymal anomalies on the EKG and a normal initial troponin level. Potassium and magnesium
supplements were administered to address the electrolyte imbalances.
DISPOSITION
Admit to hospitalist care.
ASSESSMENT
Hypokalemia, hypomagnesemia, and non-ischemic chest pain in a patient with a history of heart problems.
EMERGENCY TREATMENTS ADMINISTERED
Potassium and magnesium supplementation.
MANAGEMENT OF THE PATIENTS CARE WAS DISCUSSED WITH
Hospitalist team for admission and further management.
PLAN
Admit patient for electrolyte repletion and monitoring, further evaluation by the hospitalist team.
INDEPENDENT REVIEW OF LABS AND INTERPRETATION OF TESTS
My independent review of EKG shows no parenchymal anomalies.
My independent review of the initial troponin level is normal.
MEDICATION RECONCILIATION
Potassium and magnesium were administered.
MEDICAL DECISION MAKING
-Complexity of Data Reviewed: Chronic conditions affecting care [heart problems]. Differential diagnosis included congestive heart failure, acute coronary syndrome, pulmonary embolism, and anemia.
-Data:
Category 1: EKG interpretation and initial troponin level reviewed.
Category 3: Discussion of management with hospitalist team.
-Risk:
Hospitalization due to significant electrolyte imbalance and risk of complications.
DIAGNOSIS
- Hypokalemia (ICD-10: E87.6)
- Hypomagnesemia (ICD-10: E83.42)
- Chest pain, unspecified (ICD-10: R07.9)
Past History
Past History
ED Past Medical History: None and Other (Kidney stone, hypertension, depression)
ED Past Surgical History: None
Social History
Tobacco: Former smoker
Alcohol: Occasional
Living: with family
Family History
Family History: Negative Diabetes, Hypertension or CAD
Phy Exam
Physical Exam
Physical Exam:
.
Scores
Heart Failure Risk
Heart Failure Risk Score: Not Applicable
Course
Orders/Labs/Results
Orders:
Orders
03/28/25 12:20
EKG [Electrocardiogram (*1)] Urgent
Reason for Study: Chest Pain
EKG- Treatment ONCE
03/28/25 12:52
Electrocardiogram (*1) Stat
Reason for Study: Other
Other Reason for Exam: chest pain
Cardiac Monitoring- Treatment ONCE
EKG- Treatment ONCE
IV Insert/Care/Rem.- Treatment PRN
Pulse Ox/cont/shift [RESP] Stat
Quantity: 1
03/28/25 13:18
Complete Blood Count/With Diff Urgent
Comprehensive Metabolic Panel Urgent
Magnesium Urgent
NT-proBNP Urgent
Troponin I Urgent
03/28/25 13:55
Magnesium Sulfate 4 Gram/100Ml [Magnesium Sulfate] 4 gram in 100 ml IV NOW
CR Chest - 2 Views Urgent
Comment:
Reason For Exam: short of breath
03/28/25 14:06
Potassium Chloride [KCl] 40 meq 0.9% Sodium Chloride 250 ml [Nss] 250 ml IV NOW
03/28/25 Dinner
Regular
03/28/25 15:26
Admit/Transfer Patient As Directed
Co-Sign Provider:
Level of Care: Inpatient admission
Assign to:: Telemetry
Physician / Group: tye menezes
Diagnosis: hypoKalemia, hypomagnesmia 2/2 Chr diarrhea/vomiting, cp2/2 vomiting
Reason for Telemetry: Arrhythmia
Date to Stop Telemetry: 03/31/25
Time to Stop Telemetry: 11:00
Reason for Hospitalization: hypoKalemia, hypomagnesmia 2/2 Chr diarrhea/vomiting, cp2/2 vomiting
Expected length of stay greater than two midnights?: Yes
ELOS- Estimated Length of Stay in days: 4
I certify the patient meets the requirements for IP care: Yes
Code Status As Directed
Resuscitation Status: Full Code
03/28/25 15:31
PRN Pain Medication Management As Directed
May give lesser potent ordered pain med per pt: Yes
preference::
Protocol:: Medication orders for pain may be administered in a
manner that supports deferring to patient preference
when the pt is:
- Requesting an ordered lesser potent pain medication.
Least to most potent pain medications are defined
as: acetaminophen < NSAID < tramadol < opioids
(morphine, oxycodone, hydromorphone).
- Requesting a lesser dose of the same medication IF
ORDERED.
- Requesting a less intrusive route of administration
if both routes are prescribed by the provider (PO <
IV).
03/28/25 15:33
GASTROINTESTINAL CONSULT Routine
Consulting Provider: Krystal Tabor
Was physician already notified: Yes
Reason for consult: chronic diarrhea/vomiting
03/28/25 15:49
Blood Culture Q30M
HAN Source: Blood/Venous
Specimen Description:
Blood Culture Q30M
HAN Source: Blood/Venous
Specimen Description:
Wound Culture [Wound/Abscess/Other Culture] Urgent
HAN Source: Arm
Specimen Description: Left
Date Specimen was Collected: 03/28/25
Time Specimen was Collected: 15:48
Comment: culture left skin, please culture PIcc cath tip also
03/28/25 17:00
Magnesium Sulfate 4 Gram/100Ml [Magnesium Sulfate] 4 gram in 100 ml IV ONCE
03/31/25 11:00
DC Protocol for Telemetry ONCE
Abnormal Lab Results
03/28/25
13:18
RBC 3.25 L 10^6/uL
(4.20-5.40)
Hgb 11.1 L g/dL
(12.0-16.0)
Hct 31.4 L %
(37.0-47.0)
MCH 34.2 H pg
(27.0-31.0)
RDW 15.9 H %
(11.5-14.5)
Potassium 2.8 L mmol/L
(3.5-5.1)
BUN 3 L mg/dl
(7-17)
Creatinine 0.4 L mg/dL
(0.6-1.0)
Calcium 8.2 L mg/dl
(8.4-10.2)
Magnesium 1.0 L mg/dl
(1.6-2.3)
AST 49 H U/L
(14-36)
Total Protein 6.2 L g/dl
(6.3-8.2)
Albumin 3.1 L g/dl
(3.5-5.0)
03/28/25 13:18
03/28/25 13:18
Vital Signs
Initial and Last Documented VS:
Initial Vital Signs
Temp Pulse Resp BP Pulse Ox
97.8 F 105 18 154/87 98
03/28/25 12:25 03/28/25 12:25 03/28/25 12:25 03/28/25 12:25 03/28/25 12:25
Last Documented Vital Signs
Temp Pulse Resp BP Pulse Ox
97.8 F 91 18 158/95 98
03/28/25 12:25 03/28/25 16:07 03/28/25 16:07 03/28/25 16:07 03/28/25 16:07
*Pulse Oximetry
SaO2: 98
Oxygen Mode of Delivery: Room air
Patient hypoxic: no
*Critical Care Note
Total Time (30-74mins, 75-104mins- exclusive of procedures): Not Applicable
ED Attending Note
-
Portions of this chart may have been created with voice recognition software.� Occasional wrong word or��sound alike� substitutions may have occurred due to the inherent limitations of voice recognition software.
Discharge Plan
Departure
Patient Disposition: Admit
Date of Disposition: 03/28/25
Time of Disposition: 13:57
Admit to: Telemetry
Presentation/result/management discussed w/ accepting MD/DO: Hospitalist
Condition: Fair
Discharge Problem:
Hypokalemia, Hypomagnesemia, Chest pain
Interventions
Interventions:
*Risk Screen - Suicide Last Done: 03/28/25 12:25
*General Assessment Last Done: 03/28/25 12:25
*Neglect/Abuse Screening Last Done: 03/28/25 12:25
*ED COVID-19 Vaccine History Last Done: 03/28/25 13:21
*ED Influenza Vaccine History Last Done: 03/28/25 13:21
ED- Cardiac Assessment Last Done: 03/28/25 13:21
ED- Pulmonary Assessment Last Done: 03/28/25 13:21
[2025-03-28 13:30] LABS: Hematocrit 31.4 % (37.0-47.0); Hemoglobin 11.1 g/dL (12.0-16.0); Mean Corp Hgb Conc. 35.4 g/dL (33.0-37.0); Mean Corpuscular Volume 96.6 fL (81.0-99.0); Nucleated Red Blood Cells % 0 %; Platelet Count 227 10^3/uL (130-400); Red Cell Dist. Width 15.9 % (11.5-14.5)
[2025-03-28 13:42] LABS: ALT (SGPT) 11 U/L (0-35); AST (SGOT) 49 U/L (14-36); Albumin 3.1 g/dl (3.5-5.0); Alkaline Phosphatase 63 U/L (38-126); Blood Urea Nitrogen 3 mg/dl (7-17); Calcium 8.2 mg/dl (8.4-10.2); Carbon Dioxide 29 mmol/L (22-30); Chloride 101 mmol/L (98-107); Estimated Creatinine Clearance 58 ml/min; Glucose 85 mg/dl (70-99); Magnesium 1.0 mg/dl (1.6-2.3); Potassium 2.8 mmol/L (3.5-5.1); Sodium 137 mmol/L (135-145); Total Protein 6.2 g/dl (6.3-8.2); eGFR > 60.00
[2025-03-28 13:49] LABS: Troponin I 0.030 ng/ml
--- NOTE | 2025-03-28 14:37 | HPS.HSE ---
Addendum entered and electronically signed by Librado Garcia MD 03/28/25 15:52:
I saw and examined the patient.
The HATCHERY MAN or PA's note was reviewed and I agree with the note.
Comment:
69 female with recurrent vomiting, inability to tolerate oral potassium, anorexia
Known to have prior evaluation for recurrent Anorexia with Vomiting
No chest pain but report heaviness at times, mostly upon laying flat at night
No fever or chills
Physical Exam
General: Comfortable, Conversant and Cachectic
HEENT: Normocephalic, Anicteric, Moist mucous membranes, PERRLA, [place] Conjunctivae and No Ptosis
Respiratory: Clear; No Wheezes, Rales or Rhonchi
Cardiac: S1/S2 and Regular Rhythm;
GI: Soft, Non Tender, Non Distended, Normal Bowel Sounds
Genito-urinary: No hematuria
Musculoskeletal: Clubbing, No Cyanosis and No Edema
Skin: Warm, Dry and Other (PICC line left upper extremity with yellow pus removed by ID team cultures sent from skin and PICC line tip); No Rash
Neuro: AO x 3, No Motor Deficits and No Sensory Deficits; No Slurred Speech, Facial Droop, Tremors or Sedated
Psych: Calm
Anorexia with Vomiting
-similar to symptoms in prior admissions. She feels potassium powder made it worse. She had pic line to get RL at home per PCP order.
-IV Protonix BID
-IV Zofran PRN
c/w regular diet as she desired
s/p motility test in OP setting, known to out GI service
S/p J tube for feeding, pt removed it ( she did not loke having it, also was worried about weight gain, high glucose, high potassium, frequent diarrhea)
# Chest pain described as pressure at times, mostly at night while sleeping flat.
n troponin
EKG no acute ischemic changes
Echo done recently was normal.
#Hypomagnesemia
-replete
#Hypokalemia
-repleted
# Severe protein- caloric malnutrition with anorexia
# Postural hypotension, c/w midodrine
# Inflamed pic site
Will remove it Per IR. It was placed to give ringer lactate gtt at home.
Do blood culture blood. Patient is hemodynamic stable. No fever. No history of chills. No leukocytosis
Total time spent to see the patient, examine the patient, review data and lab results, discuss treatment plan with patient, ER doctor, nursing staff around 75 minutes�
Original Note:
Family Physician
-
Family Physician: Kierra Figueredo MD
Chief Complaint
-
Vomiting, diarrhea, chest heaviness, orthopnea
History of Present Illness
69-year-old female complaining of shortness of breath and chest heaviness increased with laying down along with orthopnea over the past 4 days. She states she had PICC line placed left upper extremity on 02/25/2025 due to potassium of 1.8. She has
been receiving IV LR 500 cc per night for the past 2-1/2 weeks due to chronic vomiting and watery brown diarrhea. She reports that has been going on since April 2024 post esophageal tumor resection she believes adenocarcinoma. She states she
was just recently switched to powder potassium but is unable to tolerate it it causes cyclical vomiting. She reports she has tried fiber with Metamucil with no improvement she attempts to drink shakes only from [employer] since she does not like any
other brands. She had motility study by GI approximately 5 days ago and follows with Dr. Ruiz. She also had PET scan, CT scan, endoscopy August 2024 at [facility] with negative biopsies. She reports ongoing cachexia had history of J-tube April
2023�July 2024, which she had removed due to rapid transit of diarrhea. She has past medical history of esophageal cancer status post resection April 2024, hypotension, cachexia, protein calorie malnutrition, prior smoker, chronic hypotension,
microcytic anemia
Medical History
Past Medical History
Past Medical History: Reports Other (esophageal adenocarcinoma s/p resection at [facility] 04/27; IBS, hypertension, depression, kidney stone, cervical cancer)
Additional Past Medical History:
hypotension,
cachexia,
protein calorie malnutrition,
prior smoker,
chronic hypotension
microcytic anemia
Past Surgical History: Reports Gynocological and Other (see above )
Social History
Tobacco: Former Smoker
Alcohol: None
Drug: None
Living: With Family
Employment: Retired
Family History
Family History: Not pertinent
Allergies / Home Medications
Allergies reflects when Allergies were last updated in [facility].
Home Medications with original date entered in [facility]
Allergy/Medication List:
Allergies
Allergy/AdvReac Type Severity Reaction Status Date / Time
cefazolin sodium (From Anc) Allergy Anaphylaxis Verified 03/28/25 12:25
morphine Allergy Swelling Verified 03/28/25 12:25
Home Medications
thiamine HCl (vitamin B1) 100 mg tablet 100 mg PO DAILY Supplement 01/06/25
midodrine 5 mg tablet 10 mg PO BID 02/25/25
potassium chloride 20 mEq tablet,extended release 20 meq PO DAILY Electrolyte Repletion 03/28/25
Review of Systems
-
History Source: Patient
A 12 point ROS was completed and negative except as noted: Yes
Constitutional: Reports Weight Loss; Denies Fever, Fatigue or Chills
EENT: Denies Sore Throat or Runny Nose
Respiratory: Denies Cough or Trouble Breathing
Cardiac: Reports Chest Pain (When lying down with orthopnea); Denies Diaphoresis or Palpitations
Abdomen/GI: Reports Nausea, Vomiting and Diarrhea; Denies Abdominal Pain or Constipated
: Denies Dysuria, Frequency, Flank Pain or Incontinence
Musculoskeletal: Denies Joint Pain or Edema
Skin: Denies Itching or Rash
Neurological: Reports Weakness; Denies Dizzy or Headache
Endocrine: Reports No Symptoms
Hematologic/Lymphatic: Reports No Symptoms
Psych: Reports Calm
Physical Exam
Vital Signs
Vital Signs
Temp Pulse Resp BP Pulse Ox
97.8 F 92 20 163/89 98
03/28/25 12:25 03/28/25 13:15 03/28/25 13:15 03/28/25 13:00 03/28/25 13:21
Physical Exam
General: Comfortable, Conversant and Cachectic
HEENT: NormoCephalic, Anicteric, Moist mucous membranes, PERRLA, [place] Conjunctivae and No Ptosis
Respiratory: Clear; No Wheezes, Rales or Rhonchi
Cardiac: S1/S2 and Regular Rhythm; No Murmur, Rub or Gallop
Breast: Deferred by me
GI: Soft, Non Tender, Non Distended, Normal Bowel Sounds and No Hepatosplenomegaly
Genito-urinary: Deferred by me
Musculoskeletal: Clubbing, No Cyanosis and No Edema
Skin: Warm, Dry and Other (PICC line left upper extremity with yellow pus removed by ID team cultures sent from skin and PICC line tip); No Rash
Neuro: AO x 3, No Motor Deficits and No Sensory Deficits; No Slurred Speech, Facial Droop, Tremors or Sedated
Psych: Calm
Laboratory Results
-
03/28/25 13:18
03/28/25 13:18
Laboratory Results
Total Bilirubin 1.0 mg/dl (0.2-1.3) 03/28/25 13:18
AST 49 U/L (14-36) H 03/28/25 13:18
ALT 11 U/L (0-35) 03/28/25 13:18
Alkaline Phosphatase 63 U/L (38-126) 03/28/25 13:18
Troponin I 0.030 ng/ml 03/28/25 13:18
Impression/Plan
-
Impression/plan:
Admit to telemetry
#Acute hypokalemia due to chronic GI losses vomiting/diarrhea
K2.8
IV K rider 40 KCl
IV K rider 40 KCl later
Follow BMP
#Acute hypomagnesemia due to chronic GI losses/vomiting diarrhea
Mag 1
Mag rider 4 g
Follow magnesium level
#Chest pain likely secondary to related to frequent vomiting
Troponin 0.030 will trend
EKG sinus tachycardia with occasional PVCs, QTc B430 MS
#Chronic intractable vomiting/diarrhea
#Prior J-tube 2024atient wanted removed as she was having frequent diarrhea
- Consult GI
- Recent motility study done 5 days ago follows with Dr. Ruiz
#Infected left upper extremity PICC line
PICC line with yellow pus IV team removed PICC line
Cultures sent from site and PICC tip by IV team
-Send blood cultures x 2
- Consult IR for new PICC placement
#Chronic hypotension
BP 163/89
-Continue midodrine 10 mg p.o. twice daily hold for SBP> 130
#History of esophageal cancer April 2024 status post
resection UHeather Guzman believes adenocarcinom had PET scan/CT scan/endoscopy August 2024 [facility] with negative biopsies a
Chronic anemia normocytic history macrocytic
Hgb 11.1 appears near baseline
Continue thiamine 100 mg daily
Recent chronic urinary incontinence
Patient reports has outpatient follow-up with urology in June
#Former smoker
#Protein calorie malnutrition/cachexia�BMI 15.4
Patient aware of this is chronic and ongoing affects all aspects of care
Has appointment with dietitian April 11
DVT prophylaxis
Subcu heparin
Full code
[2025-03-28] MEDS: KCL 270 MEQ IV ×2 (14:56→21:32)
[2025-03-28] MEDS: MAGNESIUM SULFATE 100 IV (16:08)
--- NOTE | 2025-03-28 16:23 | VATNOTE ---
03/28 Primary ED RN requested left picc patient came in with to be checked. x-ray was done and showed tip in SVC. Patient stated the picc was placed on 02/25/25 at [facility] as an outpatient. On observation, the dressing was dated changed on
03/21/25. HCG gel on dressing appeared to have a puss pocket at insertion site. [employer] DES[employer]ER was notified and order for picc blood culture, wound site culture, tip culture, and peripheral stick culture was obtained. Dressing was removed and brown/yellow
cloudy purulent drainage was confirmed. Insertion site had broken down skin with scant blood, +1 edema, 2cm diameter of redness, no pain. Site was cleaned with HCG scrub after the culture was collected and picc was removed- tip sent. all collections
sent to the lab. ED team stated the need for a new picc pending 24hr culture results. pressure dressing applied to picc site.
--- NOTE | 2025-03-28 16:51 | CON.GI ---
Addendum entered and electronically signed by Krystal Tabor MD 03/28/25 18:10:
Over 75 minutes was spent talking to the patient reviewing her prior medical records including imaging, labs, endoscopic procedures and discussing with patient at bedside and coming up with treatment assessment and plan
Original Note:
Consultation
-
Date/Time Consultation Requested: 03-28-25
Date/Time Consultation Performed: 03-28-25
Requesting Provider: FLAKITA Jacobson
Performing Provider: Dr. Krystal Tabor
Reason for Consultation: chronic diarrhea/vomiting
Medical History
Chief Complaint / HPI
Chief Complaint: wt loss, unable to eat
History of Present Illness:
Constance Avendaño, 69-year-old with medical history significant for esophageal adenocarcinoma s/p endoscopic submucosal dissection at [facility] 04/27, J-tube placement prior to the ESD for failure to thrive, J-tube removal in 07/27 due to leakage and rapid
transit of diarrhea, intermittent vomiting, persistent chronic diarrhea and failure to thrive subsequently, and presently on IV hydration as an outpatient per primary via PICC line, presents to [facility] with 2 weeks of worsening vomiting and diarrhea
with associated chest discomfort. Since she had ESD and then the J tube removed, she has struggled with her diet and nutrition. Pills often get stuck in her throat and lead to vomiting. Tolerating oral solids and liquid okay for the most part;
occasionally can lead to symptoms. She can only tolerate very small portion sizes of food. She also has chronic diarrhea and has no control over her bowels. She has tried loperamide pills but they made her throw up. Bowel movements have been watery
since April last year but were liquidy prior to that as well. Her primary put her on a potassium powder as an outpatient due to very low potassium on outpatient labs. This made her vomiting and diarrhea worse. She also describes chest discomfort
leading up to vomiting, which eventually gets better afterwards. She had an EGD with empirical dilation in 01/27 but notes no meaningful improvement in her symptoms subsequently. At this current hospitalization, her labs were notable for a K of 2.8
and Mg of 1; s/p repletion in the ER. Her PICC line site was also found to be infected and needed to be removed. Denies fevers but has had some chills at home. She has an outpatient appointment with a turkey cleaner for next month.
Past Medical History
Past Medical History: Cancer (cervical cancer, esophageal adeno CA), HTN, Psychiatric (depression) and Other (IBS, renal stones, prior tobacco use, social ETOH)
Past Surgical History: Gynecological and Other (s/p esophagectomy at [facility], lap jejunotomy tube placement with drainage post treatment )
Social History
Tobacco: Former Smoker
Alcohol: Former (social )
Drug: None
Living: With Family
Employment: Retired
Family History
Family History: Reviewed & Not Pertinent and Other (no family hx GI cancers father with metastatic prostate CA)
Allergies / Home Medications
Allergy/AdvReac Type Severity Reaction Status Date / Time
cefazolin sodium (From Anc) Allergy Anaphylaxis Verified 03/28/25 12:25
morphine Allergy Swelling Verified 03/28/25 12:25
�Medication �Instructions �Recorded
thiamine HCl (vitamin B1) 100 mg 100 mg PO DAILY Supplement 01/06/25
tablet
midodrine 5 mg tablet 10 mg PO BID 02/25/25
potassium chloride 20 mEq 20 meq PO DAILY Electrolyte 03/28/25
tablet,extended release Repletion
Review of Systems
-
History Source: Patient
All other systems: A 12 pt ROS was Negative except as stated above in HPI
Vital Signs
Temp Pulse Resp BP Pulse Ox
97.8 F 91 18 158/95 98
03/28/25 12:25 03/28/25 16:07 03/28/25 16:07 03/28/25 16:07 03/28/25 16:07
Physical Exam
Exam
General: Comfortable and Poor Appetite; Negative Well Nourished
HEENT: Normocephalic and Anicteric
Respiratory: Clear and Non Labored Respirations
Cardiac: S1/S2 and Regular Rhythm; Negative Murmur or Rub
GI: Soft, Non Tender and Non Distended; Negative Organomegaly
Rectal: Deferred by Provider
Genito-urinary: No Costovertebral Tender
Musculoskeletal: No Clubbing, No Cyanosis and No Edema
Skin: Warm and Dry
Neuro: Awake, Alert, Oriented, No Motor Deficits and Nonfocal/Grossly Intact
Psych: Calm
Results
WBC 5.8 10^3/uL (4.8-10.8) 03/28/25 13:18
Hgb 11.1 g/dL (12.0-16.0) L 03/28/25 13:18
Hct 31.4 % (37.0-47.0) L 03/28/25 13:18
MCV 96.6 fL (81.0-99.0) 03/28/25 13:18
Plt Count 227 10^3/uL (130-400) 03/28/25 13:18
Absolute Neuts (auto) 3.6 10^3/uL (1.4-6.5) 03/28/25 13:18
Sodium 137 mmol/L (135-145) 03/28/25 13:18
Potassium 2.8 mmol/L (3.5-5.1) L 03/28/25 13:18
Chloride 101 mmol/L (98-107) 03/28/25 13:18
Carbon Dioxide 29 mmol/L (22-30) 03/28/25 13:18
BUN 3 mg/dl (7-17) L 03/28/25 13:18
Creatinine 0.4 mg/dL (0.6-1.0) L 03/28/25 13:18
Calcium 8.2 mg/dl (8.4-10.2) L 03/28/25 13:18
Total Bilirubin 1.0 mg/dl (0.2-1.3) 03/28/25 13:18
AST 49 U/L (14-36) H 03/28/25 13:18
ALT 11 U/L (0-35) 03/28/25 13:18
Alkaline Phosphatase 63 U/L (38-126) 03/28/25 13:18
Diagnostic Image Results:
* 09-23-24: CT A-P: Hepatomegaly with fatty infiltration. No gallstones or bile duct dilatation. No main pancreatic duct dilatation. Left anterior abdominal wall focal skin dimpling with subcutaneous linear soft tissue attenuation consistent with
healed jejunostomy tract. No focal collection or abscess. No umbilical hernia, inflammatory soft tissue stranding, focal collection or abscess. Diverticulosis. No evidence of acute diverticulitis. No bowel obstruction.
* 01-06-25: CT Chest: Examination is negative for pulmonary embolism. There is no evidence for thoracic aortic dissection or aneurysm. Coronary artery calcifications are present. Please correlate with symptoms of and risk factors for coronary artery
disease, with further workup as clinically appropriate. Changes of emphysema within the upper lungs. Fatty infiltration of the liver.
Prior GI Procedures:
EGD:
* 01-07-25: - Scar at the gastroesophageal junction. Biopsied.
- No obvious stenosis noted. Empirical dilation performed at the
gastroesophageal junction with a 12-13.5-15 mm balloon (to a maximum
balloon size of 15 mm) dilator with minimal resistance, suggestive
that there is no stenosis.
- No gross lesions in the entire stomach.
- Normal duodenal bulb, second portion of the duodenum and first
portion of the duodenum.
Assessment / Plan
-
Constance Avendaño, 69-year-old with medical history significant for esophageal adenocarcinoma s/p endoscopic submucosal dissection at [facility] 04/27, J-tube placement prior to the ESD for failure to thrive, J-tube removal in 07/27 due to leakage and rapid
transit of diarrhea, intermittent vomiting, persistent chronic diarrhea and failure to thrive subsequently, and presently on IV hydration as an outpatient per primary via PICC line, presents to [facility] with 2 weeks of worsening vomiting and diarrhea
with associated chest discomfort. Since she had ESD and then the J tube removed, she has struggled with her diet and nutrition. Pills often get stuck in her throat and lead to vomiting. Tolerating oral solids and liquid okay for the most part;
occasionally can lead to symptoms. She can only tolerate very small portion sizes of food. She also has chronic diarrhea and has no control over her bowels. She has tried loperamide pills but they made her throw up. Bowel movements have been watery
since April last year but were liquidy prior to that as well. Her primary put her on a potassium powder as an outpatient due to very low potassium on outpatient labs. This made her vomiting and diarrhea worse. She also describes chest discomfort
leading up to vomiting, which eventually gets better afterwards. She had an EGD with empirical dilation in 01/27 but notes no meaningful improvement in her symptoms subsequently. At this current hospitalization, her labs were notable for a K of 2.8
and Mg of 1; s/p repletion in the ER. Her PICC line site was also found to be infected and needed to be removed. Denies fevers but has had some chills at home. She has an outpatient appointment with a turkey cleaner for next month.
Impression:
* Failure to thrive in adult
* Protein calorie malnutrition
* Recurrent dysphagia
* Chronic diarrhea
* Intermittent vomiting
* History of esophageal adenocarcinoma, s/p endoscopic submucosal dissection at [facility] 04/27
* History of J-tube, s/p removal due to leakage and rapid transit diarrhea 07/27
* Irritable bowel syndrome
* Acute hypokalemia
* Acute hypomagnesemia
* Normocytic anemia
* History of cervical cancer
* History of nephrolithiasis
* History of tobacco use disorder
Recommendations:
- Replete K to a goal of >4, Mg to >2; check phosphorus
- Check stool studies: c. diff, culture, fat, calprotectin, elastase, ova and parasite.
- Probiotics daily.
- Liquid loperamide as needed.
- Evaluate for nutritional deficiencies.
- Persistent failure to thrive and has not tolerated oral feeds; may need to have discussions about a G-J tube.
-
-
Thank you for consultation and allowing me to participate in the patient's care. Please call the vocational childcare teacher GI physician during the after hours with any questions or concerns.
--- NOTE | 2025-03-28 17:02 | EDCM ---
Addendum entered by Anastasia Forte 03/28/25 17:10:
Pt has WC and commode in home.
Original Note:
Reviewed chart and met with pt bedside in ED. Lives with her son in [address]. First floor half bath, full flight to second floor bedroom and full bath. Pt states she has been sleeping on the couch for past 1.5 years.
Needs assistance with ADLs, independent in personal care. Ambulates independently in home, son assists with stairs.
Does not have prescription coverage, has been paying OOP and using [facility]. She is aware it is open enrollment and in looking in to getting a prescription plan.
Current with [facility] and [facility]. Was getting IVF at home, PICC was pulled today d/t infection.
PCP: Kierra Figueredo
Pharmacy: [facility]
Discharge disposition pending ongoing medical evaluation, CM will continue to follow for all discharge planning needs.
[2025-03-28] MEDS: VISBIOME 2 CAP PO (20:10)
[2025-03-28] MEDS: HEPARIN 5000 UNITS SC (20:17)
[2025-03-28 21:59] LABS: Troponin I < 0.012 ng/ml
[2025-03-28] MEDS: ATIVAN 0.125 MG PO (23:16)
[2025-03-29 03:00] VITALS: BP 127/88
[2025-03-29 05:36] VITALS: BMI 15.0
[2025-03-29 05:41] LABS: Hematocrit 29.3 % (37.0-47.0); Hemoglobin 10.2 g/dL (12.0-16.0); Mean Corp Hgb Conc. 34.8 g/dL (33.0-37.0); Mean Corpuscular Volume 97.0 fL (81.0-99.0); Nucleated Red Blood Cells % 0 %; Platelet Count 198 10^3/uL (130-400); Red Cell Dist. Width 15.8 % (11.5-14.5)
[2025-03-29 06:01] LABS: Troponin I < 0.012 ng/ml
[2025-03-29 06:06] LABS: ALT (SGPT) < 10 U/L (0-35); AST (SGOT) 45 U/L (14-36); Albumin 2.7 g/dl (3.5-5.0); Alkaline Phosphatase 65 U/L (38-126); Blood Urea Nitrogen 2 mg/dl (7-17); Calcium 7.7 mg/dl (8.4-10.2); Carbon Dioxide 31 mmol/L (22-30); Chloride 102 mmol/L (98-107); Estimated Creatinine Clearance 56 ml/min; Glucose 73 mg/dl (70-99); Iron 87 ug/dl (37-170); Magnesium 1.7 mg/dl (1.6-2.3); Potassium 3.3 mmol/L (3.5-5.1); Sodium 135 mmol/L (135-145); Total Protein 5.4 g/dl (6.3-8.2); eGFR > 60.00
[2025-03-29 06:15] LABS: Total Iron Binding Capacity 141 ug/dl (265-497)
[2025-03-29 06:21] LABS: Vitamin D, 25-OH*** < 12.8 ng/mL (30-80)
[2025-03-29 06:39] LABS: Ferritin 243.0 ng/ml (11.1-264.0)
[2025-03-29 07:00] VITALS: BP 158/96
[2025-03-29 07:10] LABS: Folate 2.5 ng/ml (2.76-20); Vitamin B12 437 pg/ml (239-931)
--- NOTE | 2025-03-29 08:00 | W.PN.GI.CBS2 ---
Addendum entered and electronically signed by Krystal Tabor MD 03/29/25 08:13:
If she does need oral potassium supplements and will need the liquid potassium she may not be able to tolerate the pills or the powder
Original Note:
Today's Communication / Plan
-
Agree with nutrition consult
encourage increased oral intake was unable to tolerate protein supplements
Stool studies if able to have a BM in a hat she is currently having incontinence and is using a diaper
Discussed that she will most likely need a feeding tube likely G-tube and can be converted to GJ if unable to tolerate tube feeds cannot rule out underlying gastroparesis she does not want to have it now but she says she will think about it
Lomotil twice daily
Assessment / Plan
-
Constance Avendaño, 69-year-old with medical history significant for esophageal adenocarcinoma s/p endoscopic submucosal dissection at [facility] 04/27, J-tube placement prior to the ESD for failure to thrive, J-tube removal in 07/27 due to leakage and rapid
transit of diarrhea, intermittent vomiting, persistent chronic diarrhea and failure to thrive subsequently, and presently on IV hydration as an outpatient per primary via PICC line, presents to [facility] with 2 weeks of worsening vomiting and diarrhea
with associated chest discomfort. Since she had ESD and then the J tube removed, she has struggled with her diet and nutrition. Pills often get stuck in her throat and lead to vomiting. Tolerating oral solids and liquid okay for the most part;
occasionally can lead to symptoms. She can only tolerate very small portion sizes of food. She also has chronic diarrhea and has no control over her bowels. She has tried loperamide pills but they made her throw up. Bowel movements have been watery
since April last year but were liquidy prior to that as well. Her primary put her on a potassium powder as an outpatient due to very low potassium on outpatient labs. This made her vomiting and diarrhea worse. She also describes chest discomfort
leading up to vomiting, which eventually gets better afterwards. She had an EGD with empirical dilation in 01/27 but notes no meaningful improvement in her symptoms subsequently. At this current hospitalization, her labs were notable for a K of 2.8
and Mg of 1; s/p repletion in the ER. Her PICC line site was also found to be infected and needed to be removed. Denies fevers but has had some chills at home. She has an outpatient appointment with a check examiner for next month.
Impression:
* Failure to thrive in adult
* Protein calorie malnutrition
* Recurrent dysphagia
* Chronic diarrhea
* Intermittent vomiting
* History of esophageal adenocarcinoma, s/p endoscopic submucosal dissection at [facility] 04/27
* History of J-tube, s/p removal due to leakage and rapid transit diarrhea 07/27
* Irritable bowel syndrome
* Acute hypokalemia
* Acute hypomagnesemia
* Normocytic anemia
* History of cervical cancer
* History of nephrolithiasis
* History of tobacco use disorder
Recommendations:
- Replete K to a goal of >4, Mg to >2; check phosphorus
- Check stool studies: c. diff, culture, fat, calprotectin, elastase, ova and parasite. She did have diarrhea last night but unable to collect because she went in the diaper
- Probiotics added
- Liquid loperamide twice daily.
- Evaluate for nutritional deficiencies.
- Persistent failure to thrive with severe electrolyte disturbances especially hypokalemia and hypomagnesemia
- will check for celiac
- Cannot rule out gastroparesis and may need gastric emptying scan as outpatient
- She says she was unable to tolerate protein supplements but is going to try to increase caloric intake through her food
- Discussed with patient today to consider G-tube she currently does not want it but she says she will think about it
- She also has folate deficiency and vitamin D deficiency will need oral supplements
- Anemia likely multifactorial from poor nutrition and also anemia of chronic disease currently has no overt bleeding. She does not want to have a colonoscopy
- If not improved with Lomotil could consider Questran for probable bile salt diarrhea and if not improved with that then can consider Creon for possible EPI since unable to collect a stool sample to check for fecal fat or pancreatic elastase
- If symptoms persist she also needs a colonoscopy to rule out possible microscopic colitis less likely IBD but she does not want to have the colonoscopy
- Gram stain from around the PICC site did not show WBC and cultures are pending from the catheter tip
Subjective
Subjective
Date of Service: March 29, 2025
She is feeling much better with less abdominal pain. Appetite also improving and she says she has requested to discuss with check examiner also and waiting. She did have diarrhea but unable to collect sample since she had incontinence both fecal and
urinary into the diaper and was unable to have a BM in the toilet or the hat. No nausea or vomiting since admission. She did have magnesium and potassium supplemented and has improved. She also has a very low vitamin D level and low folic acid
level. Afebrile
Objective
Data Reviewed
Laboratory Data:
Laboratory Results
03/29/25 05:29
03/29/25 05:29
Laboratory Results
Phosphorus 2.9 mg/dl (2.5-4.5) 03/29/25 05:29
Magnesium 1.7 mg/dl (1.6-2.3) 03/29/25 05:29
Total Bilirubin 0.7 mg/dl (0.2-1.3) 03/29/25 05:29
AST 45 U/L (14-36) H 03/29/25 05:29
ALT < 10 U/L (0-35) 03/29/25 05:29
Alkaline Phosphatase 65 U/L (38-126) 03/29/25 05:29
Vital Signs and I&O:
Vital Signs
Temp Pulse Resp BP Pulse Ox
98.5 F 82 18 127/88 94
03/29/25 03:00 03/29/25 03:00 03/29/25 03:00 03/29/25 03:00 03/29/25 03:00
I&O
03/28/25 03/29/25 03/30/25
06:59 06:59 06:59
Intake Total 960 / 960
Balance 960 / 960
Physical Exam
Physical Exam
Cardiology: Normal Sinus Rhythm
Pulmonary: Clear
GI: Soft, Non Distended, Non Tender and Normal Bowel Sounds
[2025-03-29] MEDS: HEPARIN 5000 UNITS SC ×2 (08:45→20:38)
[2025-03-29] MEDS: MAGNESIUM SULFATE 100 IV (08:45)
[2025-03-29] MEDS: VITAMIN B1 100 MG PO (08:45)
[2025-03-29] MEDS: VISBIOME 2 CAP PO (08:45)
[2025-03-29] MEDS: KCL 270 MEQ IV (08:46)
[2025-03-29 10:26] VITALS: BP 130/85
--- NOTE | 2025-03-29 10:44 | W.PN.HOSP.TC ---
Addendum entered and electronically signed by Librado Garcia MD 03/29/25 16:52:
Patient is having headache, mild. No fever. Tylenol did not help much. Patient requested IV Toradol, it helped before.
End
Original Note:
Today's Communication/Plan
-
c/w Mg & KCl replacement
Holding Midodrine
Add PRN Ativan
Assessment / Plan
Assessment / Plan
69 female with recurrent vomiting, inability to tolerate oral potassium, anorexia
Known to have prior evaluation for recurrent Anorexia with Vomiting
No chest pain but report heaviness at times, mostly upon laying flat at night
No fever or chills
Physical Exam
General: Comfortable, Conversant and Cachectic
HEENT: Normocephalic, Anicteric, Moist mucous membranes, PERRLA, Crest Conjunctivae and No Ptosis
Respiratory: Clear; No Wheezes, Rales or Rhonchi
Cardiac: S1/S2 and Regular Rhythm;
GI: Soft, Non Tender, Non Distended, Normal Bowel Sounds
Genito-urinary: No hematuria
Musculoskeletal: Clubbing, No Cyanosis and No Edema
Skin: Warm, Dry and Other (PICC line left upper extremity site is clean , not red/ no erythema or tenderness. No Rash
Neuro: AO x 3, No Motor Deficits and No Sensory Deficits; No Slurred Speech, Facial Droop, Tremors or Sedated
Psych: Calm
Anorexia with Vomiting
Resolved. She did not need anti-emetics.
-similar to symptoms in prior admissions. She feels potassium powder made it worse. She had pic line to get RL at home per PCP order.
-IV Protonix BID
-IV Zofran PRN
c/w regular diet as she desired
s/p motility test in OP setting, known to out GI service
S/p J tube for feeding, pt removed it ( she did not want it, also was worried about weight gain, high glucose, high potassium, frequent diarrhea)
Started on Liquid loperamide twice daily per GI. Per GI: Discussed with patient today to consider G-tube she currently does not want it but she says she will think about it
# Chest pain described as pressure at times, mostly at night while sleeping flat.
n troponin
EKG no acute ischemic changes
Echo done recently was normal.
#Hypomagnesemia
-replete
#Hypokalemia
-repleted
# Severe protein- caloric malnutrition with anorexia
# Postural hypotension, c/w midodrine with holding parameters. Her BP is elevated, holding midodrine for now.
# Inflamed pic site
Removed Pic line, site now appears not inflamed.
Did blood culture blood. Patient is hemodynamic stable. No fever. No history of chills. No leukocytosis
Total time spent to see the patient, examine the patient, review data and lab results, discuss treatment plan with patient, GI doctor, nursing staff around 75 minutes�
Anticipated Discharge: Within 24 hours
Subjective/Interval History
-
Date of Service: March 29, 2025
she feels better
she wants to go home
she felt better after receiving Ativan
Objective Data
-
Labs:
Laboratory Results
03/29/25
05:29
WBC 4.5 L
Hgb 10.2 L
Hct 29.3 L
Plt Count 198
Sodium 135
Potassium 3.3 L
Chloride 102
Carbon Dioxide 31 H
BUN 2 L
Creatinine 0.4 L
Glucose 73
Calcium 7.7 L
Total Bilirubin 0.7
AST 45 H
ALT < 10
Alkaline Phosphatase 65
Vital Signs:
Vital Signs
Temp Pulse Resp BP Pulse Ox
98.4 F 83 16 158/96 97
03/29/25 07:00 03/29/25 07:00 03/29/25 07:00 03/29/25 07:00 03/29/25 07:00
I&O
03/28/25 03/29/25 03/30/25
06:59 06:59 06:59
Intake Total 960 / 960
Balance 960 / 960
[2025-03-29 11:00] VITALS: BP 137/76
--- NOTE | 2025-03-29 11:39 | PTOTSP ---
ST Acute Care Evaluation
Pt currently presents with fairly functional oropharyngeal parameters per clinical bedside swallow evaluation. Pt with known esophageal dysphagia due to hx of esophageal adenocarcinoma s/p dissection (04/2024) with seldom globus sensation with
solids. Pt is fully AAOx4 and independently communicated that she avoids foods she cannot chew efficiently and avoids foods she knows she cannot swallow. Given this information, pt is appropriate for a liberalized diet of regular solids and thin
liquids without limitations at this time, with recommendations for pt to self-select items she knows she can tolerate. Pt remains at a risk for post-prandial aspiration.
Recommendations:
- Regular solids (self-select items she knows she can efficiently chew/swallow), thin liquids, meds as tolerated (cut or crush when able).
- General aspiration precautions.
- Reflux precautions: HOB upright for 60 minutes s/p meals.
- Esophageal dysphagia compensatory strategies: opt for softer foods; use moisture with your solids (gravies, sauces, broths); chew your food thoroughly; take small bites; alternate bites/sips; stop eating when you are full (listen to your body);
opt for 6-7 small meals a day as opposed to 3 large meals; when struggling with solids - opt for supplemental nutrition drinks; take reflux medications as prescribed.
- F/u with registered dietitian and GI as an OP/
- Skilled MANAGER PAID services not indicated at this time. MANAGER PAID team to sign off. Please re-consult if needed. Thank you.
[2025-03-29] MEDS: FOLVITE 50.2 MG IV (12:25)
[2025-03-29] MEDS: DRISDOL (VITAMIN D2) 50000 UNITS PO (12:25)
[2025-03-29] MEDS: TYLENOL ORAL SOLUTION 650 MG PO ×2 (12:25→23:36)
--- NOTE | 2025-03-29 14:35 | CM ---
Patient seen at bedside in [address] [place] [address]. Patient was current with [facility] and [facility] prior to admission and continues to plan to return home with supports from them if appropriate. Therapy assessment today recommending home
health. CM sent referral to [facility] but will need clarification about [facility] needs tt sent to physician to confirm needs.
Plan; home with [facility]; referral sent via [facility]. clarify [facility] needs.
[2025-03-29 15:24] VITALS: BP 159/99
[2025-03-29 15:29] VITALS: BMI 15.0
[2025-03-29] MEDS: IMODIUM LIQUID 2 MG PO ×2 (15:29→23:02)
[2025-03-29] MEDS: TORADOL 15 MG IV (16:51)
[2025-03-29 19:50] VITALS: BP 149/96
[2025-03-29] MEDS: ATIVAN 0.125 MG PO (23:37)
--- NOTE | 2025-03-30 00:23 | W.PN.UPDATE ---
Update Note
Progress Note Update
Patient c/o urinary urgency and frequency, UA reflex to cx ordered. UA negative for UTI.
[2025-03-30 01:24] LABS: Urine Character Clear (Clear)
[2025-03-30 02:55] VITALS: BP 159/103
[2025-03-30 06:00] VITALS: BMI 15.0
[2025-03-30 07:00] VITALS: BP 141/91
[2025-03-30 07:25] LABS: Hematocrit 28.9 % (37.0-47.0); Hemoglobin 10.2 g/dL (12.0-16.0); Mean Corp Hgb Conc. 35.3 g/dL (33.0-37.0); Mean Corpuscular Volume 94.4 fL (81.0-99.0); Nucleated Red Blood Cells % 0 %; Platelet Count 161 10^3/uL (130-400); Red Cell Dist. Width 16.1 % (11.5-14.5)
[2025-03-30 08:06] LABS: ALT (SGPT) < 10 U/L (0-35); AST (SGOT) 40 U/L (14-36); Albumin 2.5 g/dl (3.5-5.0); Alkaline Phosphatase 57 U/L (38-126); Blood Urea Nitrogen < 2 mg/dl (7-17); Calcium 8.0 mg/dl (8.4-10.2); Carbon Dioxide 26 mmol/L (22-30); Chloride 107 mmol/L (98-107); Estimated Creatinine Clearance 56 ml/min; Glucose 81 mg/dl (70-99); Magnesium 1.6 mg/dl (1.6-2.3); Potassium 3.1 mmol/L (3.5-5.1); Sodium 135 mmol/L (135-145); Total Protein 5.2 g/dl (6.3-8.2); eGFR > 60.00
--- NOTE | 2025-03-30 08:29 | W.PN.GI.CBS2 ---
Today's Communication / Plan
-
Continue to replace electrolytes
Can switch to oral liquid potassium may not be able to tolerate the pills or the powder
Liquid magnesium may unfortunately exacerbate her diarrhea
Continue Lomotil 3 times daily after DC and if still diarrhea persists could consider Questran or Creon trial
Follow-up at [facility] after DC
Assessment / Plan
-
Constance Avendaño, 69-year-old with medical history significant for esophageal adenocarcinoma s/p endoscopic submucosal dissection at [facility] 04/27, J-tube placement prior to the ESD for failure to thrive, J-tube removal in 07/27 due to leakage and rapid
transit of diarrhea, intermittent vomiting, persistent chronic diarrhea and failure to thrive subsequently, and presently on IV hydration as an outpatient per primary via PICC line, presents to [facility] with 2 weeks of worsening vomiting and diarrhea
with associated chest discomfort. Since she had ESD and then the J tube removed, she has struggled with her diet and nutrition. Pills often get stuck in her throat and lead to vomiting. Tolerating oral solids and liquid okay for the most part;
occasionally can lead to symptoms. She can only tolerate very small portion sizes of food. She also has chronic diarrhea and has no control over her bowels. She has tried loperamide pills but they made her throw up. Bowel movements have been watery
since April last year but were liquidy prior to that as well. Her primary put her on a potassium powder as an outpatient due to very low potassium on outpatient labs. This made her vomiting and diarrhea worse. She also describes chest discomfort
leading up to vomiting, which eventually gets better afterwards. She had an EGD with empirical dilation in 01/27 but notes no meaningful improvement in her symptoms subsequently. At this current hospitalization, her labs were notable for a K of 2.8
and Mg of 1; s/p repletion in the ER. Her PICC line site was also found to be infected and needed to be removed. Denies fevers but has had some chills at home. She has an outpatient appointment with a drop machine operator for next month.
Impression:
* Failure to thrive in adult
* Protein calorie malnutrition
* Recurrent dysphagia
* Chronic diarrhea
* Intermittent vomiting
* History of esophageal adenocarcinoma, s/p endoscopic submucosal dissection at [facility] 04/27
* History of J-tube, s/p removal due to leakage and rapid transit diarrhea 07/27
* Irritable bowel syndrome
* Acute hypokalemia
* Acute hypomagnesemia
* Normocytic anemia
* History of cervical cancer
* History of nephrolithiasis
* History of tobacco use disorder
Recommendations:
- Replete K to a goal of >4, Mg to >2; check phosphorus
- Stool studies negative for C. difficile negative for crypto and Giardia, cultures pending, fecal calprotectin, fat and pancreatic elastase also pending
- Probiotics added
- Liquid loperamide tid-diarrhea better with it.
- Persistent failure to thrive with severe electrolyte disturbances especially hypokalemia and hypomagnesemia
- will check for celiac
- Cannot rule out gastroparesis and may need gastric emptying scan as outpatient
- She says she was unable to tolerate protein supplements but is going to try to increase caloric intake through her food
- Discussed with patient today to consider G-tube she currently does not want it but she says she will think about it
- She also has folate deficiency and vitamin D deficiency started on supplements
- Anemia likely multifactorial from poor nutrition and also anemia of chronic disease currently has no overt bleeding. She does not want to have a colonoscopy
- could consider Questran for probable bile salt diarrhea and if not improved with that then can consider Creon for possible EPI - await fecal fat
- If symptoms persist she also needs a colonoscopy to rule out possible microscopic colitis less likely IBD but she does not want to have the colonoscopy
- Gram stain from around the PICC site did not show WBC and cultures are pending from the catheter tip
- Follow-up at [facility] after DC
- She also told Dr. Garcia yesterday that she did not like it when she gained weight when she had the J-tube and wanted it removed and also apparently in the past was on weight watchers
- May need outpatient evaluation with psychiatry to rule out possible underlying undiagnosed ED and symptoms exacerbated with underlying anxiety.
- Will s/o and will be avialable as needed
Subjective
Subjective
Date of Service: March 30, 2025
Patient was eating breakfast and seems to be tolerating it. She was rude in interaction today and angry when asked if she was eating better she replied' I am really frustrated with everyone asking me if I am eating'! I explained to her that it is
important that we make sure that she gets enough caloric intake because of her recent weight loss and also to make sure that her electrolytes are repleted. She denies any abdominal pain. Diarrhea seems to be improving with Lomotil. She has been
started on folate and vitamin D supplements. Getting IV magnesium and potassium, magnesium levels have normalized, potassium is still low.
Objective
Data Reviewed
Laboratory Data:
Laboratory Results
03/30/25 06:57
03/30/25 06:57
Laboratory Results
Phosphorus 2.9 mg/dl (2.5-4.5) 03/29/25 05:29
Magnesium 1.6 mg/dl (1.6-2.3) 03/30/25 06:57
Total Bilirubin 0.5 mg/dl (0.2-1.3) 03/30/25 06:57
AST 40 U/L (14-36) H 03/30/25 06:57
ALT < 10 U/L (0-35) 03/30/25 06:57
Alkaline Phosphatase 57 U/L (38-126) 03/30/25 06:57
Vital Signs and I&O:
Vital Signs
Temp Pulse Resp BP Pulse Ox
98.1 F 83 18 159/103 98
03/30/25 02:55 03/30/25 02:55 03/30/25 02:55 03/30/25 02:55 03/30/25 02:55
I&O
1103/30/25 03/31/25
06:59 06:59 06:59
Intake Total 960 / 960 1120 / 1120
Output Total /
Balance 960 / 960 913 / 913
Physical Exam
Physical Exam
Cardiology: Normal Sinus Rhythm
Pulmonary: Clear
GI: Soft, Non Distended, Non Tender and Normal Bowel Sounds
[2025-03-30] MEDS: HEPARIN 5000 UNITS SC ×2 (09:43→19:38)
[2025-03-30] MEDS: VISBIOME 2 CAP PO (09:44)
[2025-03-30] MEDS: VITAMIN B1 100 MG PO (09:44)
[2025-03-30] MEDS: IMODIUM LIQUID 2 MG PO ×3 (09:45→22:41)
--- NOTE | 2025-03-30 09:54 | W.PN.HOSP.TC ---
Today's Communication/Plan
-
Aggressive K & Mg replacement today, hope to dc in AM
Assessment / Plan
Assessment / Plan
69 female with recurrent vomiting, inability to tolerate oral potassium, anorexia
Known to have prior evaluation for recurrent Anorexia with Vomiting
No chest pain but report heaviness at times, mostly upon laying flat at night
No fever or chills
Physical Exam
General: Comfortable, Conversant and Cachectic
HEENT: Normocephalic, Anicteric, Moist mucous membranes, PERRLA, [place] Conjunctivae and No Ptosis
Respiratory: Clear; No Wheezes, Rales or Rhonchi
Cardiac: S1/S2 and Regular Rhythm;
GI: Soft, Non Tender, Non Distended, Normal Bowel Sounds
Genito-urinary: No hematuria
Musculoskeletal: Clubbing, No Cyanosis and No Edema
Skin: Warm, Dry and Other (PICC line left upper extremity site is clean , not red/ no erythema or tenderness. No Rash
Neuro: AO x 3, No Motor Deficits and No Sensory Deficits; No Slurred Speech, Facial Droop, Tremors or Sedated
Psych: Calm
Anorexia with Vomiting
Resolved. She did not need anti-emetics.
-similar to symptoms in prior admissions. She feels potassium powder made it worse. She had pic line to get RL at home per PCP order.
-IV Protonix BID
-IV Zofran PRN
c/w regular diet as she desired
s/p motility test in OP setting, known to out GI service
S/p J tube for feeding, pt removed it ( she did not want it, also was worried about weight gain, high glucose, high potassium, frequent diarrhea)
Started on Liquid loperamide twice daily per GI. Per GI: Discussed with patient today to consider G-tube she currently does not want it but she says she will think about it
# Chest pain described as pressure at times, mostly at night while sleeping flat.
n troponin
EKG no acute ischemic changes
Echo done recently was normal.
#Hypomagnesemia
-replete
#Hypokalemia
-repleted
# Severe protein- caloric malnutrition with anorexia
# headache
Mild
PRN Tylenol
She requested IV Toradol
# Postural hypotension, c/w midodrine with holding parameters. Her BP is elevated, holding midodrine for now.
# Inflamed pic site
Removed Pic line, site now appears not inflamed.
negative blood culture blood. Patient is hemodynamic stable. No fever. No history of chills. No leukocytosis
Total time spent to see the patient, examine the patient, review data and lab results, discuss treatment plan with patient, GI doctor, nursing staff around 75 minutes�
Anticipated Discharge: Within 24 hours
Subjective/Interval History
-
Date of Service: March 30, 2025
No sob
No chest pain
No fevers
Objective Data
-
Labs:
Laboratory Results
03/30/25
06:57
WBC 3.8 L
Hgb 10.2 L
Hct 28.9 L
Plt Count 161
Sodium 135
Potassium 3.1 L
Chloride 107
Carbon Dioxide 26
BUN < 2 L
Creatinine 0.4 L
Glucose 81
Calcium 8.0 L
Total Bilirubin 0.5
AST 40 H
ALT < 10
Alkaline Phosphatase 57
Vital Signs:
Vital Signs
Temp Pulse Resp BP Pulse Ox
98.1 F 81 16 141/91 95
03/30/25 07:00 03/30/25 09:44 03/30/25 07:00 03/30/25 09:44 03/30/25 07:00
I&O
03/29/25 03/30/25 03/31/25
06:59 06:59 06:59
Intake Total 960 / 960 1120 / 1120
Output Total /
Balance 960 / 960 913 / 913
[2025-03-30] MEDS: MAGNESIUM SULFATE 50 IV (10:23)
[2025-03-30] MEDS: KCL 270 MEQ IV ×3 (10:32→19:37)
[2025-03-30 11:00] VITALS: BP 158/96
[2025-03-30] MEDS: FOLVITE 50.2 MG IV (13:07)
[2025-03-30 15:00] VITALS: BP 140/94
--- NOTE | 2025-03-30 15:39 | CM ---
CM following re: discharge planning.
Reviewed pt's chart, met with pt.
PT and OT evaluations noted - home PT/OT recommended.
Per CM note, pt is known to [facility] home care and a referral to [facility] home care made.
D/C plan: home with [facility] home care and family support.
[2025-03-30 19:15] VITALS: BP 137/81
[2025-03-30 23:14] VITALS: BP 128/79
[2025-03-30] MEDS: ATIVAN 0.125 MG PO (23:36)
[2025-03-31 01:11] LABS: Blood Urea Nitrogen < 2 mg/dl (7-17); Calcium 8.5 mg/dl (8.4-10.2); Carbon Dioxide 29 mmol/L (22-30); Chloride 106 mmol/L (98-107); Estimated Creatinine Clearance 56 ml/min; Glucose 95 mg/dl (70-99); Potassium 4.8 mmol/L (3.5-5.1); Sodium 136 mmol/L (135-145); eGFR > 60.00
[2025-03-31 03:19] VITALS: BP 127/84
[2025-03-31 06:00] VITALS: BMI 14.9
[2025-03-31 07:00] VITALS: BP 147/87
[2025-03-31 07:50] LABS: ALT (SGPT) 12 U/L (0-35); AST (SGOT) 56 U/L (14-36); Albumin 3.0 g/dl (3.5-5.0); Alkaline Phosphatase 74 U/L (38-126); Blood Urea Nitrogen < 2 mg/dl (7-17); Calcium 8.9 mg/dl (8.4-10.2); Carbon Dioxide 30 mmol/L (22-30); Chloride 105 mmol/L (98-107); Estimated Creatinine Clearance 56 ml/min; Glucose 79 mg/dl (70-99); Potassium 4.7 mmol/L (3.5-5.1); Sodium 136 mmol/L (135-145); Total Protein 6.1 g/dl (6.3-8.2); eGFR > 60.00
[2025-03-31 07:52] LABS: Hematocrit 33.3 % (37.0-47.0); Hemoglobin 11.2 g/dL (12.0-16.0); Mean Corp Hgb Conc. 33.6 g/dL (33.0-37.0); Mean Corpuscular Volume 99.1 fL (81.0-99.0); Nucleated Red Blood Cells % 0 %; Platelet Count 215 10^3/uL (130-400); Red Cell Dist. Width 16.6 % (11.5-14.5)
[2025-03-31] MEDS: IMODIUM LIQUID 2 MG PO (09:17)
[2025-03-31] MEDS: VITAMIN B1 100 MG PO (09:17)
[2025-03-31] MEDS: HEPARIN SC ×2 (09:17→09:26)
[2025-03-31] MEDS: VISBIOME 2 CAP PO (09:18)
--- NOTE | 2025-03-31 10:10 | W.PN.HOSP.TC ---
Today's Communication/Plan
-
she wants to go home before lunch, requesting discharge
Assessment / Plan
Assessment / Plan
69 female with recurrent vomiting, inability to tolerate oral potassium, anorexia
Physical Exam
General: Comfortable, Conversant and Cachectic
HEENT: Normocephalic, Anicteric, Moist mucous membranes, PERRLA, [place] Conjunctivae and No Ptosis
Respiratory: Clear; No Wheezes, Rales or Rhonchi
Cardiac: S1/S2 and Regular Rhythm;
GI: Soft, Non Tender, Non Distended, Normal Bowel Sounds
Genito-urinary: No hematuria
Musculoskeletal: Clubbing, No Cyanosis and No Edema
Skin: Warm, Dry and Other (PICC line left upper extremity site is clean , not red/ no erythema or tenderness. No Rash
Neuro: AO x 3, No Motor Deficits and No Sensory Deficits; No Slurred Speech, Facial Droop, Tremors or Sedated
Psych: Calm
Anorexia with Vomiting
Resolved. She did not need anti-emetics.
She was followed closely by GI. Recommended to use Imodium and potassium supplement. Outpatient follow-up
Stool studies did not show infectious source
She did not need Zofran.
S/p J tube for feeding, pt removed it ( she did not want it, also was worried about weight gain, high glucose, high potassium, frequent diarrhea)
Started on Liquid loperamide twice daily per GI. Per GI: Discussed with patient today to consider G-tube she currently does not want it but she says she will think about it
# Chest pain described as pressure at times, mostly at night while sleeping flat. Resolved. No complaints in the hospital regarding chest pain or shortness of breath.
Negative serial troponin
EKG no acute ischemic changes
Echo done recently was normal.
#Hypomagnesemia
Given IV Mg.
#Hypokalemia
Resolved
She tried powder in solution and did not tolerate them. Outpatient pharmacy can have potassium effervescent, will send the prescription and hopefully she can tolerated
# Severe protein- caloric malnutrition with anorexia
She was advised to c/w GI doctor and follow instructions, she verbalized understanding.
# headache
Resolved, was mild, PRN Tylenol given , she requested IV Toradol
# Postural hypotension, c/w midodrine with holding parameters. Her BP is elevated, holding midodrine for now.
# Inflamed pic site
Removed Pic line, site now appears not inflamed.
negative blood culture blood/ catheter tip culture. Patient is hemodynamic stable. No fever. No history of chills. No leukocytosis
Total discharge time spent to see the patient, examine the patient, review data and lab results, discuss discharge plan with patient, nursing staff around 67 minutes�
Anticipated Discharge: Today
Subjective/Interval History
-
Date of Service: March 31, 2025
She denies nausea or vomiting
Diarrhea is not getting worse, she wants to go home before lunch, requesting discharge
She agreed to take Imodium, potassium at home
Objective Data
-
Labs:
Laboratory Results
03/31/25 03/31/25
00:33 06:30
WBC 4.7 L
Hgb 11.2 L
Hct 33.3 L
Plt Count 215 D
Sodium 136 136
Potassium 4.8 D 4.7
Chloride 106 105
Carbon Dioxide 29 30
BUN < 2 L < 2 L
Creatinine 0.4 L 0.4 L
Glucose 95 79
Calcium 8.5 8.9
Total Bilirubin 0.5
AST 56 H
ALT 12
Alkaline Phosphatase 74
Vital Signs:
Vital Signs
Temp Pulse Resp BP Pulse Ox
98.3 F 83 16 147/87 97
03/31/25 07:00 03/31/25 09:18 03/31/25 07:00 03/31/25 09:18 03/31/25 07:00
I&O
03/30/25 03/31/25 04/01/25
06:59 06:59 06:59
Intake Total 1120 / 1120 2299
Output Total /
Balance 913 / 913 2299
[2025-03-31 11:01] VITALS: BP 150/85
--- NOTE | 2025-03-31 11:47 | W.DCSUMMARY ---
Discharge Summary
Discharge Data
Date of Admission: 03/28/25
Date of Discharge: 03/31/25
-
Pending Results: No
Hospital Course
69 years old female presented with weakness, nausea and inability to tolerate oral potassium. Patient reported chronic diarrhea. She reported vomiting. She did not have leukocytosis. She did not have leukocytosis, fever or chills. Patient
reported that she was following with GI doctor and was unable to tolerate oral potassium/powder form. Blood work showed hypokalemia and hypomagnesemia. Patient was admitted to the hospital received intravenous fluid, intravenous potassium and
magnesium replacement therapy. Patient was evaluated by farmer and grazier. She did not need antiemetic. She Was started on loperamide liquid. She was found to have folate and vitamin D deficiency and was given replacement. Stool testing did
not show infectious source. Patient had PICC line placed at home for IV fluid replacement. PICC line site was inflamed, was removed. Culture of the catheter tip and blood did not show any growth. GI doctor encourage patient to take
Imodium/potassium at home. Patient reported that she had appointment with GI at [place]. Patient remained hemodynamically stable. Physical therapy recommended home health. Patient was able to tolerate oral diet and discharged home in a stable
condition.
Discharge Plan
-
Patient Disposition: Home with Home Care
Discharge Diagnosis/Procedures: Acute hypokalemia
Acute hypomagnesemia
Folate deficiency
Vitamin D deficient
Failure to thrive in adult
Protein calorie malnutrition
Recurrent dysphagia
Chronic diarrhea
Intermittent vomiting
You were seen by GI. You were given intravenous fluids, intravenous potassium magnesium. Your blood work came back normal. You reported you could not tolerate potassium powder/solution. Try potassium effervescent.
Diet: As tolerated
Referrals:
Kierra Figueredo MD [Family Provider, Internal Medicine]
Prescriptions:
New
ergocalciferol (vitamin D2) [Vitamin D2] 1,250 mcg (50,000 unit) Capsule
50,000 unit PO Q7D Qty: 6 0RF
loperamide 1 mg/7.5 mL Liquid
2 mg PO TID Qty: 225 0RF
folic acid 1 mg tablet
1 mg PO DAILY Qty: 30 0RF
potassium bicarb-citric acid 20 mEq tablet, effervescent
20 meq PO DAILY Qty: 30 0RF
Continued
thiamine HCl (vitamin B1) 100 mg Tablet
100 mg PO DAILY
midodrine 5 mg Tablet
10 mg PO BID
Discontinued
potassium chloride 20 mEq Tablet Extended Release
20 meq PO DAILY
Discharge Orders:
Discharge Patient (As Directed); Ordered 03/31/25
Ordered By: Librado Garcia
Discharge Date and Time
Discharge Date/Time: 03/31/25 11:25
Print Language: ROMANSH
--- NOTE | 2025-03-31 11:59 | CM ---
MD entered order for discharge.
Pt left for home before this CM saw her.
As per Care port [facility] accepted her.
PLAN Home with [facility] fax [phone]
== END 2025-03-31 11:25 | disposition home health service (06) | DRG 640 ==
LOC: 2 NORTH 15:51
PROVIDERS: Clinical Nurse Specialist Family Health; Nurse Practitioner Family; Student in an Organized Health Care Education/Training Program; ADMITTING PHYSICIAN Internal Medicine; CONSULT PHYSICIAN Internal Medicine Gastroenterology; EMERGENCY PHYSICIAN Emergency Medicine; FAMILY PHYSICIAN Hospitalist
DX: E87.6 Hypokalemia (principal); E43 Unspecified severe protein-calorie malnutrition; E46 Unspecified protein-calorie malnutrition; R64 Cachexia; Z68.1 Body mass index [BMI] 19.9 or less, adult; E83.42 Hypomagnesemia; E53.8 Deficiency of other specified B group vitamins; R62.7 Adult failure to thrive; R13.10 Dysphagia, unspecified; I95.1 Orthostatic hypotension; D50.9 Iron deficiency anemia, unspecified; Z87.891 Personal history of nicotine dependence; Z88.5 Allergy status to narcotic agent; Z85.41 Personal history of malignant neoplasm of cervix uteri; I10 Essential (primary) hypertension; Z87.442 Personal history of urinary calculi; K58.9 Irritable bowel syndrome, unspecified; F32.A Depression, unspecified; Z85.01 Personal history of malignant neoplasm of esophagus; K57.30 Diverticulosis of large intestine without perforation or abscess without bleeding; K76.0 Fatty (change of) liver, not elsewhere classified; Z79.899 Other long term (current) drug therapy; Z88.1 Allergy status to other antibiotic agents
CPT/HCPCS: 71046; 74022; 80048; 80053; 81003; 82306; 82607; 82653; 82705; 82728; 82746; 82784; 83516; 83540; 83550; 83735; 83880; 83993; 84100; 84484; 85025; 86231; 87040; 87045; 87046; 87070; 87084; 87205; 87324; 87328; 87329; 87427; 87449; 92610; 93005; 96374; 97162; 99285